=== PATIENT | female | born 1970 | race Caucasian/White ===

== ENCOUNTER → 2016-07-11 | Outpatient (CLI) | payer MEDICARE, OTHER ==
[2016-07-11 12:29] LABS: Basophils % (A) 1 %; CH 22.1; CHCM 29.5; Eosinophils # (A) 0.3 k/uL (0-0.7); Eosinophils % (A) 3 %; HDW 3.03; HGB 10.5 gm/dL (11.4-16.0); Hypochromasia Marked; Luc # (Auto) 0.29; Luc % (Auto) 3; Lymphocytes # (A) 2.6 k/uL (1.0-4.8); Lymphocytes % (A) 31 %; MCH 22.5 pg (25.0-35.0); MCHC 29.9 g/dL (31.0-37.0); MCV 75.3 fL (80.0-100.0); Microcytosis Slight; Monocytes # (A) 0.4 k/uL (0-1.0); Monocytes % (A) 4 %; Neutrophils % (A) 58 %; RBC 4.65 m/uL (3.80-5.40); RDW 15.8 % (11.5-15.5); WBC 8.5 k/uL (3.8-10.6); WBC (Perox) 9.14
[2016-07-11 15:40] LABS: % Iron Saturation 8.5 % (20-50)
== END | disposition home or self-care (01) ==
LOC: LABWHC1 11:52
PROVIDERS: ATTEND Internal Medicine Gastroenterology
DX: D50.9 Iron deficiency anemia, unspecified (principal)
CPT/HCPCS: 36415; 82728; 83540; 83550; 85025

== ENCOUNTER → 2016-08-11 | Outpatient (CLI) | payer MEDICARE, OTHER ==
--- NOTE | 2016-08-11 13:16 | XR ---
EXAMINATION TYPE: XR chest 2V DATE OF EXAM: 08/11/2016 11:43 AM COMPARISON: 08/27/2015 HISTORY: 46-year-old female with cough TECHNIQUE: Frontal and lateral views FINDINGS: The cardiomediastinal silhouette, aorta, and pulmonary vasculature are within normal limits. Mild dif fuse interstitial prominence. Otherwise, lungs and pleural spaces are clear. IMPRESSION: Chronic changes, possible chronic bronchitis/asthma. Otherwise, no acute process.
== END | disposition home or self-care (01) ==
LOC: RADXRWHC 11:31
PROVIDERS: ATTEND Internal Medicine
DX: R91.8 Other nonspecific abnormal finding of lung field (principal); J44.9 Chronic obstructive pulmonary disease, unspecified
CPT/HCPCS: 71020

== ENCOUNTER → 2016-11-14 | Outpatient (CLI) | payer MEDICARE ==
[2016-11-14 10:01] LABS: Appearance,Urine Clear (Clear); Bilirubin,Urine Negative (Negative); Glucose,Urine (UA) Negative (Negative); Ketones,Urine Negative (Negative); Leukocyte Esterase,Urine Negative (Negative); Nitrite,Urine Negative (Negative); PH, Urine 6.5 (5.0-8.0); Protein,Urine Negative (Negative); Specific Gravity,Urine 1.012 (1.001-1.035); UA Billing (MACRO vs. MICRO) CHEM; Urobilinogen,Urine <2.0 mg/dL (<2.0)
[2016-11-14 10:14] LABS: Anisocytosis Slight; Basophils % (A) 1 %; CH 23.3; CHCM 30.5; Eosinophils # (A) 0.3 k/uL (0-0.7); Eosinophils % (A) 4 %; HGB 10.4 gm/dL (11.4-16.0); Hypochromasia Marked; Luc # (Auto) 0.25; Luc % (Auto) 3; Lymphocytes # (A) 2.3 k/uL (1.0-4.8); Lymphocytes % (A) 28 %; MCH 23.5 pg (25.0-35.0); MCHC 30.6 g/dL (31.0-37.0); MCV 76.8 fL (80.0-100.0); Mean Platelet Volume 6.5; Microcytosis Slight; Monocytes # (A) 0.3 k/uL (0-1.0); Monocytes % (A) 4 %; Neutrophils % (A) 61 %; RBC 4.43 m/uL (3.80-5.40); RDW 16.2 % (11.5-15.5); WBC 8.1 k/uL (3.8-10.6); WBC (Perox) 8.55
[2016-11-14 10:17] LABS: INR 0.9 (<1.1); Partial Thromboplastin Time 22.9 sec (22.0-30.0); Prothrombin Time 9.5 sec (9.0-12.0)
[2016-11-14 10:34] LABS: Anion Gap 11 mmol/L; Blood Urea Nitrogen 7 mg/dL (7-17); Calcium 9.8 mg/dL (8.4-10.2); Carbon Dioxide 26 mmol/L (22-30); Chloride 107 mmol/L (98-107); Glucose 92 mg/dL (74-99); Non-African American GFR(MDRD) >60 (>60 ml/min/1.73 sqM); Potassium 4.6 mmol/L (3.5-5.1); Sodium 144 mmol/L (137-145)
--- NOTE | 2016-11-14 16:27 | XR ---
EXAMINATION TYPE: XR chest 2V DATE OF EXAM: 11/14/2016 2:07 PM COMPARISON: 08/11/2016 HISTORY: 46-year-old female preoperative testing TECHNIQUE: Frontal and lateral views FINDINGS: The cardiomediastinal silhouette, aorta, and pulmonary vasculature are within normal limits. Lungs an d pleural spaces are clear. IMPRESSION: No acute cardiopulmonary process.
== END | disposition home or self-care (01) ==
LOC: LABWHC1 09:00
PROVIDERS: ATTEND Internal Medicine
DX: Z01.818 Encounter for other preprocedural examination (principal)
CPT/HCPCS: 36415; 71020; 80048; 81003; 85025; 85610; 85730; 87070

== ENCOUNTER → 2017-01-06 | Outpatient (CLI) | payer MEDICARE ==
[2017-01-06 14:14] LABS: Anisocytosis Slight; Basophils # (A) 0.1 k/uL (0-0.2); Basophils % (A) 0 %; CH 24.5; CHCM 30.9; Eosinophils # (A) 0.4 k/uL (0-0.7); Eosinophils % (A) 3 %; HCT 35.1 % (34.0-46.0); HDW 2.74; HGB 11.1 gm/dL (11.4-16.0); Hypochromasia Moderate; Luc % (Auto) 3; Lymphocytes # (A) 2.7 k/uL (1.0-4.8); Lymphocytes % (A) 25 %; MCHC 31.5 g/dL (31.0-37.0); MCV 79.4 fL (80.0-100.0); Mean Platelet Volume 7.7; Microcytosis Slight; Monocytes # (A) 0.4 k/uL (0-1.0); Monocytes % (A) 3 %; Neutrophils # (A) 7.2 k/uL (1.3-7.7); Neutrophils % (A) 66 %; RBC 4.42 m/uL (3.80-5.40); RDW 16.8 % (11.5-15.5); WBC (Perox) 11.78
[2017-01-06 14:46] LABS: % Iron Saturation 8.1 % (20-50)
== END | disposition home or self-care (01) ==
LOC: LABWHC1 13:32
PROVIDERS: ATTEND Internal Medicine Gastroenterology
DX: D50.9 Iron deficiency anemia, unspecified (principal)
CPT/HCPCS: 36415; 82728; 83540; 83550; 85025

== ENCOUNTER → 2017-05-01 | Outpatient (CLI) | payer MEDICARE ==
--- NOTE | 2017-05-01 16:53 | US ---
EXAMINATION TYPE: US abdomen complete DATE OF EXAM: 05/01/2017 COMPARISON: 08/02/2014 CLINICAL HISTORY: R10.12 Abd Pain R10.32 LLQ R10.13 LUQ Pain. Left sided pain, epigastric pain for 2 weeks. Nausea. Cholecystectomy 2016 EXAM MEASUREMENTS: Liver Length: 16.8 cm Gallbladder Wall: Surgically absent CBD: 0.5 cm Spleen: 8.7 cm Right Kidney: 10.1 x 3.6 x 4.7 cm Left Kidney: 9.5 x 5.2 x 4.6 cm Pancreas: Tail obscured by overlying bowel gas Liver: wnl Gallbladder: Surgically absent Evidence for sonographic Biggs's sign: no CBD: wnl Spleen: appears wnl Right Kidney: no evidence of hydronephrosis or mass Left Kidney: no evidence of hydronephrosis or mass Upper IVC: wnl Abd Aorta: wnl IMPRESSION: 1. Abdomen ultrasound as visualized appears unremarkable.
== END | disposition home or self-care (01) ==
LOC: RADUSWWP 06:59
PROVIDERS: ATTEND Internal Medicine
DX: R10.12 Left upper quadrant pain (principal); R10.32 Left lower quadrant pain; R10.13 Epigastric pain
CPT/HCPCS: 76700

== ENCOUNTER → 2017-07-15 | Outpatient (CLI) | payer MEDICARE ==
[2017-07-15 08:58] LABS: HCT 35.9 % (34.0-46.0); HGB 10.8 gm/dL (11.4-16.0); Hypochromasia Marked; MCH 23.6 pg (25.0-35.0); MCV 78.9 fL (80.0-100.0); Mean Platelet Volume 6.7; Platelet Count 310 k/uL (150-450); RBC 4.55 m/uL (3.80-5.40); RDW 14.7 % (11.5-15.5); WBC 8.6 k/uL (3.8-10.6)
[2017-07-15 09:13] LABS: ALT 25 U/L (9-52); AST 17 U/L (14-36); Alkaline Phosphatase 72 U/L (38-126); Anion Gap 10 mmol/L; Blood Urea Nitrogen 11 mg/dL (7-17); Calcium 9.7 mg/dL (8.4-10.2); Carbon Dioxide 27 mmol/L (22-30); Chloride 107 mmol/L (98-107); Cholesterol 232 mg/dL (<200); Glucose 90 mg/dL (74-99); HDL Cholesterol 49 mg/dL (40-60); LDL Cholesterol,Calculated 157 mg/dL (0-99); Potassium 4.6 mmol/L (3.5-5.1); Sodium 144 mmol/L (137-145); Total Bilirubin 0.4 mg/dL (0.2-1.3); Triglycerides 129 mg/dL (<150)
[2017-07-15 09:17] LABS: T4, Free (Free Thyroxine) 0.94 ng/dL (0.78-2.19)
== END | disposition home or self-care (01) ==
LOC: LABWHC1 07:16
PROVIDERS: ATTEND Internal Medicine
DX: Z00.00 Encounter for general adult medical examination without abnormal findings (principal); K21.0 Gastro-esophageal reflux disease with esophagitis; E78.2 Mixed hyperlipidemia; J44.9 Chronic obstructive pulmonary disease, unspecified
CPT/HCPCS: 36415; 80053; 80061; 84439; 84443; 85027

== ENCOUNTER → 2017-08-25 | Outpatient (CLI) | payer MEDICARE, OTHER ==
--- NOTE | 2017-08-26 05:18 | WWHP ---
[facility] - HISTORY AND PHYSICAL DATE OF SERVICE: 08/25/2017 CHIEF COMPLAINT: The patient is here for her routine gynecologic exam. HPI: This is a 47-year-old, G2, P2 with an LMP of 06/23/2017. She is status post tubal ligation. She states her periods went from being about every 1 to 3 months prior to 07/08 to no periods for one full year. Her last prior menstrual period was in and she had a normal to slightly heavy period, which started on 06/23/2017. This period lasted about 5 to 7 days with heavier flow and cramps. She has been having hot flashes for about 2 years and these are moderate to severe according to the patient. She has also been experiencing abdominal bloating for 2 years. She states the amount of bloating varies but she tends to almost always have bloating. She has also been having deep dyspareunia. She does have history of genital herpes type 2, which was confirmed on 11/07/2015 with culture testing. She states she has been having fairly frequent genital outbreaks up to about every month during the past year. PAST MEDICAL HISTORY: Bipolar disorder, posttraumatic stress disorder, gastroesophageal reflux disease , asthma, and fibromyalgia. MEDICATIONS: 1. Neurontin 600 mg 5 times daily. 2. Catapres 0.1 mg t.i.d. 3. Prilosec 20 mg b.i.d. 4. Zantac 1 b.i.d. 5. Zoloft 50 mg daily. 6. ProAir HFA p.r.n. 7. Qvar inhaler 80 mg b.i.d. 8. Prochlorperazine 5 mg p.r.n. 9. Tramadol 50 mg q.8 hours p.r.n. 10. polyethylene glycol 2 scoops daily. ALLERGIES: Allergies to PENICILLIN, which showed up in allergy testing. PAST SURGICAL HISTORY: Tubal ligation, D and C x2, cholecystectomy 2013, arthroscopic left knee surgery 2003, right breast biopsy 2001 and neck surgery 2016. PAST [employer] HISTORY: She has always had somewhat irregular periods about every 1 to 3 months. She does have a history of gonorrhea and chlamydia in her 20s. She has a history of genital HSV type 2, confirmed with culture. FAMILY HISTORY: Hypertension in both parents. Mother had some type of cancer either uterine or cervical. Sister has vulvar cancer. Grandfather had colon cancer. Grandmother had an VT. REVIEW OF SYSTEMS: She has gained about 3 pounds over the last 3 years. She denies respiratory or cardiac problems. GI: She does have a history of chronic constipation. PHYSICAL EXAM: Blood pressure 107/52, height 5 feet 6 inches, weight 163 pounds, BMI 26, temperature 97.9, pulse 68. This is a well-developed, well-nourished, white female, who is alert and oriented x3, in no acute distress. HEENT is within normal limits. NECK: Supple without mass or thyromegaly. CHEST AND LUNGS: Clear to auscultation. HEART: Regular rate and rhythm. Breasts are without mass or discharge, but there is mild left breast tenderness. She states she does have frequent breast tenderness and pain. Axillary exam is negative for adenopathy. BACK: Negative for CVA tenderness. ABDOMEN: Soft, nontender, without palpable masses and the abdomen is not significantly distended. PELVIC EXAM: Normal external genitalia. Cervix and vagina appear normal. There is no unusual discharge. No blood is noted. There is no significant prolapse. The uterus is mid position, nongravid size and nontender. There are no palpable adnexal masses or tenderness. Rectal exam is negative for mass or tenderness and is negative for occult blood. EXTREMITIES: Nontender. IMPRESSION: 1. A 47-year-old female with normal gynecologic exam. 2. Vaginal bleeding after 1 year of amenorrhea. Probable postmenopausal bleeding. Differential diagnosis will also include perimenopausal bleeding after amenorrhea. 3. Abdominal bloating without any significant physical findings at this time. 4. History of frequent recurrent genital HSV. 5. Deep dyspareunia without any significant physical findings at this time. 6. Chronic mastodynia with mild breast tenderness. PLAN: 1. Pap smear was performed. 2. Self breast examination was discussed. 3. Diagnostic mammogram was recommended and a slip was given to the patient for this. 4. Endometrial biopsy was recommended to further evaluate the possible postmenopausal bleeding. 5. Pelvic ultrasound will be scheduled. 6. Valtrex 500 mg daily for suppressive HSV treatment. 7. The mammogram, endometrial biopsy and pelvic ultrasound will be scheduled on the same day in the near future. 8. She will return in 1 year and p.r.n. MMODL / IJN: [id number] / STEVOD
== END | disposition home or self-care (01) ==
LOC: WWCWWP 15:52
PROVIDERS: ATTEND Obstetrics & Gynecology
DX: Z53.9 Procedure and treatment not carried out, unspecified reason (principal)

== ENCOUNTER → 2017-09-02 | Outpatient (CLI) | payer MEDICARE, OTHER ==
--- NOTE | 2017-09-02 12:07 | US ---
EXAMINATION TYPE: US pelvis complete transvag DATE OF EXAM: 09/02/2017 COMPARISON: NONE CLINICAL HISTORY: 47-year-old female R14.0Abdominal distension/N94.1. TECHNIQUE: Transabdominal sonographic images of the pelvis were acquired. Transvaginal sonographic images were medically necessary to better assess the following anatomy: endometrium and ovaries. Date of LMP: 06/23/2017 Findings: Uterus: Anteverted measuring 6.0 x 2.9 x 4.0 cm. There is diffuse myometrial heterogeneity. Rounded structure present along the anterior body measures 1.3 x 1.4 x 1.3 cm and abuts the endometrium. Endometrial Stripe: 0.6 cm, within normal limits. Right Ovary: 2.0 x 1.1x 1.0 cm Left Ovary: 1.5 x 1.1 x 1.3 cm Ovaries are small. No evident adnexal abnormality or cul-de-sac free fluid. IMPRESSION: 1. Myometrial heterogeneity can be seen with diffuse small fibroid change or adenomyosis. 2. A focal fibroid is present anteriorly at the uterine body. This is primarily intramural but may mills ve a submucosal component.
--- NOTE | 2017-09-02 12:09 | MM ---
Reason for exam: clinical finding. Last mammogram was performed 2 years and 6 months ago. History: Benign stereotactic core biopsy of the right breast, January 11, 2002. Physical Findings: Nurse did not find any significant physical abnormalities on exam. MG 3D Diag Mammo W/Cad JIMMIE Bilateral CC and MLO view(s) were taken. Prior study comparison: March 06, 2015, bilateral MG diagnostic mammo w CAD JIMMIE. September 30, 2013, CAD bilateral diagnostic mammogram. The breast tissue is heterogeneously dense. This may lower the sensitivity of mammography. There is chronic nodularity in the left medial breast. Diffuse punctate calcifications bilateral breast, increased posterior upper outer quadrant left. These appear punctate and amorphous, similar to the calcifications elsewhere in both breasts. Benign etiology suspected. These results were verbally communicated with the patient and result sheet given to the patient on 09/02/17. ASSESSMENT: Probably benign, BI-RAD 3 RECOMMENDATION: Follow-up diagnostic mammogram of the left breast in 6 months.
--- NOTE | 2017-09-02 13:37 | P.PCN ---
Date of Procedure: 09/02/17 Preoperative Diagnosis: Postmenopausal bleeding Postoperative Diagnosis: Postmenopausal bleeding. Failed endometrial biopsy secondary to cervical stenosis. Procedure(s) Performed: Endometrial Biopsy (failed) Anesthesia: none Surgeon: Vega Mcintyre Estimated Blood Loss (ml): 0 Pathology: none sent Condition: stable Disposition: same day Indications for Procedure: This was a 47-year-old female who had a menstrual like bleed on 06/23/17. This was after one month of amenorrhea. Because of this she was scheduled for an endometrial biopsy. Operative Findings: The cervix and vagina appear normal. The uterus is mid-positioned and non- gravid size. There are no palpable adnexal masses or tenderness. The cervix is stenotic and the biopsy instrument was not able to be passed through the cervix. Description of Procedure: The endometrial biopsy procedure was described to the patient. All of her questions were answered. The patient was placed in the lithotomy position. Bimanual examination was performed. The uterus is mid-positioned and is non- gravid size. The speculum was inserted and the cervix and vagina were prepped with betadine solution. The anterior lip of the cervix was grasped within Allys Clamp. The 3mm endometrial biopsy curette was used to attempt the endometrial biopsy. I was unable to insert this past the cervical os because of stenosis of the cervix. Several attempts were made without success. Due to the discomfort with the attempts the procedure was aborted. The patient states that she had a previous cryotherapy of the cervix which may be related to the stenosis noted today. The patient tolerated the procedure. There were no complications. The post procedure vitals are as follows: blood pressure 138/ 78. pulse 77. Post procedure instructions were given to the patient. The patient's endometrial thickness by pelvic ultrasound done today was 6 mm. Because the endometrial biopsy could not be completed today, and the endometrial thickness is somewhat reassuring, we will manage her conservatively. She was instructed to call if she has recurrent vaginal bleeding.
== END | disposition home or self-care (01) ==
LOC: RADMAMWWP 10:21
PROVIDERS: ATTEND Obstetrics & Gynecology
DX: D25.9 Leiomyoma of uterus, unspecified (principal); N85.8 Other specified noninflammatory disorders of uterus; N64.4 Mastodynia
CPT/HCPCS: 77066; 76856; 76830; G0279

== ENCOUNTER → 2017-09-02 | Day surgery (SDC) | payer MEDICARE, OTHER ==
[2017-09-02 12:25] VITALS: BP 120/58; PULSE 64; TEMP 96.1; BMI 25.8
--- NOTE | 2017-09-08 17:36 | P.PN ---
Progress Note - Text Progress Note Date: 09/08/17 The patient's mammogram from 09/02/2017 was reviewed. This is a diagnostic bilateral mammogram which was felt to be benign. Follow-up diagnostic mammogram of the left breast in 6 months was recommended and in order slip was mailed to the patient for this.
== END ==
LOC: WWCWWP 10:17
PROVIDERS: ATTEND Obstetrics & Gynecology
DX: R92.8 Other abnormal and inconclusive findings on diagnostic imaging of breast (principal); Z53.8 Procedure and treatment not carried out for other reasons

== ENCOUNTER 2017-09-07 17:34 | Emergency (ER) | payer MEDICARE, OTHER ==
[2017-09-07 18:25] LABS: Basophils # (A) 0.1 k/uL (0-0.2); Basophils % (A) 1 %; Eosinophils # (A) 0.5 k/uL (0-0.7); Eosinophils % (A) 5 %; HCT 34.2 % (34.0-46.0); HGB 11.1 gm/dL (11.4-16.0); Lymphocytes # (A) 3.3 k/uL (1.0-4.8); Lymphocytes % (A) 38 %; MCH 24.4 pg (25.0-35.0); MCHC 32.5 g/dL (31.0-37.0); MCV 75.1 fL (80.0-100.0); Mean Platelet Volume 7.2; Microcytosis Slight; Monocytes # (A) 0.5 k/uL (0-1.0); Monocytes % (A) 5 %; Neutrophils # (A) 4.3 k/uL (1.3-7.7); Neutrophils % (A) 49 %; Platelet Count 321 k/uL (150-450); RBC 4.56 m/uL (3.80-5.40); RDW 15.5 % (11.5-15.5); WBC 8.9 k/uL (3.8-10.6)
[2017-09-07 18:37] LABS: Anion Gap 11 mmol/L; Blood Urea Nitrogen 14 mg/dL (7-17); Calcium 9.9 mg/dL (8.4-10.2); Carbon Dioxide 25 mmol/L (22-30); Chloride 104 mmol/L (98-107); Glucose 86 mg/dL (74-99); Potassium 3.7 mmol/L (3.5-5.1); Sodium 140 mmol/L (137-145)
--- NOTE | 2017-09-07 19:24 | XR ---
EXAMINATION: XR chest 2V DATE AND TIME: 09/07/2017 7:02 PM ORDERING PROVIDER: Tyler Jeffers CLINICAL INDICATION: Pain dyspnea TECHNIQUE: PA and lateral COMPARISON: 04/15/2017 DESCRIPTION: The lungs are clear. The pleural spaces are negative. The cardiac silhouette is not enlarged. The mediastinal and pleural silhouettes are unremarkable. The skeletal structures are intact without focal findings. The soft tissues are unremarkable. IMPRESSION: NO ACUTE PROCESS.
--- NOTE | 2017-09-07 19:30 | ED ---
General Adult HPI - General Chief complaint: Upper Respiratory Infection Stated complaint: Cold sweats, lung issues Time Seen by Provider: 09/07/17 18:23 Source: patient, RN notes reviewed Mode of arrival: ambulatory Limitations: no limitations - History of Present Illness Initial comments: 47-year-old female presents to the emergency department for chief complaint of cough. Patient states she has had a cough for about a week. Patient states she has a history of asthma and is a smoker. Patient states she has tightness when she takes deep breath and that her cough is productive. Patient has been using her nebulizer and inhaler at home which provided some relief. Patient states she was hospitalized for a pneumonia in the past. Patient denies chest pain or abdominal pain. Patient denies any nausea vomiting or diarrhea. Patient also denies any urinary symptoms including burning or pain with urination. Patient feels some congestion. She denies a sore throat. She states that when she swallows she feels a pressure in her ears. Patient states she is not on a nasal spray. Patient states she tolerates steroids and a Medrol Dosepak but does not tolerate prednisone 50 because she has GERD and it exacerbates her symptoms. She is on an antacid and PPI. Patient has a terminally ill sister and would like antibiotics if possible - Related Data Home Medications Medication Instructions Recorded Confirmed Gabapentin [Neurontin] 600 mg PO 5XD 12/14/13 09/07/17 Omeprazole [PriLOSEC] 20 mg PO BID 12/14/13 09/07/17 cloNIDine HCL [Catapres] 0.3 mg PO HS 12/14/13 09/07/17 Albuterol Sulfate [Proair Hfa] 1 - 2 puff INHALATION RT-Q6H PRN 08/27/15 Beclomethasone Dipropionate [Qvar 2 puff INHALATION RT-BID 08/27/15 09/07/17 80 mcg/puff] traMADol HCl [Ultram] 50 mg PO Q8HR PRN 08/27/15 09/07/17 Albuterol Nebulized [Ventolin 2.5 mg INHALATION RT-QID PRN 09/07/17 09/07/17 Nebulized] Ibuprofen [Advil] 200 mg PO Q6H PRN 09/07/17 09/07/17 Melatonin 6 mg PO HS 09/07/17 09/07/17 Polyethylene Glycol 3350 [Miralax] 51 gm PO DAILY@1500 09/07/17 09/07/17 Ranitidine HCl [Zantac] 150 mg PO BID 09/07/17 09/07/17 Sertraline HCl [Zoloft] 50 mg PO DAILY 09/07/17 09/07/17 Previous Rx's Medication Instructions Recorded Azithromycin [Zithromax Z-pack] 250 mg PO DIRECTED #6 tab 09/07/17 methylPREDNISolone Dose Pack 4 mg PO DIRECTED #21 package 09/07/17 [Medrol Dose Pack] Allergies Allergy/AdvReac Type Severity Reaction Status Date / Time mold Allergy Wheezing Verified 09/07/17 18:54 acetaminophen AdvReac Nausea & Verified 09/07/17 18:54 [From Tylenol-Codeine #3] Vomiting aspirin AdvReac Nausea & Verified 09/07/17 18:54 Vomiting codeine phosphate AdvReac Nausea & Verified 09/07/17 18:54 [From Tylenol-Codeine #3] Vomiting Milk Containing Products AdvReac Nausea & Verified 09/07/17 18:54 Vomiting Penicillins AdvReac Rash/Hives Verified 09/07/17 18:54 Review of Systems ROS Statement: Those systems with pertinent positive or pertinent negative responses have been documented in the HPI. ROS Other: All systems not noted in ROS Statement are negative. Past Medical History Past Medical History: Asthma History of Any Multi-Drug Resistant Organisms: None Reported Past Surgical History: Cholecystectomy, Orthopedic Surgery, Tubal Ligation Additional Past Surgical History / Comment(s): neck surgery Past Psychological History: Anxiety, Bipolar, Depression, PTSD Smoking Status: Current every day smoker Past Alcohol Use History: None Reported Past Drug Use History: Marijuana General Exam Limitations: no limitations Head exam: Present: atraumatic, normocephalic, normal inspection Eye exam: Present: normal appearance, PERRL, EOMI. Absent: scleral icterus, conjunctival injection, periorbital swelling ENT exam: Present: normal exam, mucous membranes moist, TM's normal bilaterally , normal external ear exam, other (No erythema noted in the pharynx.) Neck exam: Present: normal inspection. Absent: tenderness, meningismus, lymphadenopathy Respiratory exam: Present: wheezes (Wheezes present and lower left lung.). Absent: respiratory distress, rales, rhonchi, stridor Cardiovascular Exam: Present: regular rate, normal rhythm, normal heart sounds. Absent: systolic murmur, diastolic murmur, rubs, gallop, clicks GI/Abdominal exam: Present: soft, normal bowel sounds. Absent: distended, tenderness, guarding, rebound, rigid Course Vital Signs 09/07/17 09/07/17 17:45 18:24 Temperature 97.9 F Pulse Rate 82 Respiratory 18 22 Rate Blood Pressure 140/82 O2 Sat by Pulse 99 Oximetry EKG Findings - EKG Comments: EKG Findings:: Normal sinus rhythm, ventricular rate 78, MI interval 114, QRS duration 92 Medical Decision Making - Medical Decision Making 47-year-old female presents the emergency department for a chief complaint of cough 1 week. Patient states she has not had fevers at home. She is an asthmatic and smokes. She was hospitalized for a pneumonia in the past so wanted to follow-up. Patient has a nebulizer and inhaler at home. Patient states she tolerates Medrol Dosepaks. Vitals were within normal limits: Patient 's temperature is 97.9 and pulse rate 82. 99% O2 sat on room air. CBC is unremarkable and white blood cell count was within normal limits. Chest X-ray demonstrates lungs are clear and there is no acute process. Patient will be given a Medrol Dosepak. She will also be given a course of azithromycin. She will continue to use her nebulizer and inhaler at home. She has medications at home for the nebulizer. Return to The emergency Department if she notices worsening of her symptoms or experiences shortness of breath. She will follow up with primary care in 1-2 days. - Lab Data Result diagrams: 09/07/17 18:10 09/07/17 18:10 Lab Results 09/07/17 09/07/17 Range/Units 18:10 18:10 WBC 8.9 (3.8-10.6) k/uL RBC 4.56 (3.80-5.40) m/uL Hgb 11.1 L (11.4-16.0) gm/dL Hct 34.2 (34.0-46.0) % MCV 75.1 L (80.0-100.0) fL MCH 24.4 L (25.0-35.0) pg MCHC 32.5 (31.0-37.0) g/dL RDW 15.5 (11.5-15.5) % Plt Count 321 (150-450) k/uL Neutrophils % 49 % Lymphocytes % 38 % Monocytes % 5 % Eosinophils % 5 % Basophils % 1 % Neutrophils # 4.3 (1.3-7.7) k/uL Lymphocytes # 3.3 (1.0-4.8) k/uL Monocytes # 0.5 (0-1.0) k/uL Eosinophils # 0.5 (0-0.7) k/uL Basophils # 0.1 (0-0.2) k/uL Microcytosis Slight Sodium 140 (137-145) mmol/L Potassium 3.7 (3.5-5.1) mmol/L Chloride 104 (98-107) mmol/L Carbon Dioxide 25 (22-30) mmol/L Anion Gap 11 mmol/L BUN 14 (7-17) mg/dL Creatinine 0.74 (0.52-1.04) mg/dL Est GFR (CKD-EPI)AfAm >90 (>60 ml/min/1.73 sqM) Est GFR (CKD-EPI)NonAf >90 (>60 ml/min/1.73 sqM) Glucose 86 (74-99) mg/dL Calcium 9.9 (8.4-10.2) mg/dL Disposition Clinical Impression: Upper respiratory infection Disposition: HOME SELF-CARE Condition: Good Instructions: Upper Respiratory Infection (ED) Additional Instructions: Please take azithromycin and Medrol Dosepak as directed. Please follow-up with primary care provider in one to 2 days. Please return to the emergency department if you notice worsening symptoms, develops a high fever, or becomes short of breath. Prescriptions: Azithromycin [Zithromax Z-pack] 250 mg PO DIRECTED #6 tab methylPREDNISolone Dose Pack [Medrol Dose Pack] 4 mg PO DIRECTED #21 package Referrals: Albino Tyler MD [Primary Care Provider] - 1-2 days
[2017-09-07 20:14] VITALS: BP 141/60; PULSE 71; RESP 18; TEMP 97.1
== END 2017-09-07 20:20 | disposition home or self-care (01) ==
LOC: EC 17:34
DX: J06.9 Acute upper respiratory infection, unspecified (principal); J45.909 Unspecified asthma, uncomplicated; F41.9 Anxiety disorder, unspecified; F32.9 Major depressive disorder, single episode, unspecified; F43.10 Post-traumatic stress disorder, unspecified; F17.200 Nicotine dependence, unspecified, uncomplicated; Z79.52 Long term (current) use of systemic steroids; Z79.899 Other long term (current) drug therapy; Z91.048 Other nonmedicinal substance allergy status; Z88.6 Allergy status to analgesic agent; Z88.5 Allergy status to narcotic agent; Z91.011 Allergy to milk products; Z88.0 Allergy status to penicillin
CPT/HCPCS: 36415; 71046; 80048; 85025; 93005; 99284

== ENCOUNTER → 2017-10-19 | Outpatient (CLI) | payer MEDICARE, OTHER ==
[2017-10-19 13:28] LABS: Basophils # (A) 0.1 k/uL (0-0.2); Basophils % (A) 1 %; Eosinophils # (A) 0.3 k/uL (0-0.7); Eosinophils % (A) 4 %; HCT 37.9 % (34.0-46.0); HGB 11.8 gm/dL (11.4-16.0); Hypochromasia Slight; Lymphocytes # (A) 3.1 k/uL (1.0-4.8); Lymphocytes % (A) 39 %; MCH 24.4 pg (25.0-35.0); MCHC 31.2 g/dL (31.0-37.0); MCV 78.1 fL (80.0-100.0); Mean Platelet Volume 6.5; Monocytes # (A) 0.3 k/uL (0-1.0); Monocytes % (A) 4 %; Neutrophils # (A) 3.9 k/uL (1.3-7.7); Neutrophils % (A) 49 %; Platelet Count 289 k/uL (150-450); RBC 4.85 m/uL (3.80-5.40); RDW 14.9 % (11.5-15.5); WBC 7.9 k/uL (3.8-10.6)
[2017-10-19 19:07] LABS: Iron Saturation 5.49 (12.00-45.00)
== END | disposition home or self-care (01) ==
LOC: LABWHC1 12:18
PROVIDERS: ATTEND Internal Medicine Gastroenterology
DX: D50.9 Iron deficiency anemia, unspecified (principal)
CPT/HCPCS: 36415; 82728; 83540; 83550; 85025

== ENCOUNTER 2017-12-01 02:33 | Emergency (ER) | payer MEDICARE ==
[2017-12-01] MEDS ORDERED: methylPREDNISolone SOD SUCCI 125 MG/2 ML VIAL IV STA (03:22)
--- NOTE | 2017-12-01 03:32 | ED ---
Allergic Reaction HPI - General Chief complaint: Allergic Reaction Stated complaint: poss allergic rxn Time Seen by Provider: 12/01/17 03:09 Source: patient, EMS, RN notes reviewed Mode of arrival: EMS Limitations: no limitations - History of Present Illness Initial Comments: This is a 39-year-old female who presents to the emergency department with chief complaint possible ALLERGIC reaction. Patient states that she has been taking Voltaren intermittently for fibromyalgia. She states that this evening she took it at approximately 11 PM. She states that she woke up and felt flush and then felt tingling and swelling in her bilateral hands and feet. She states that she became nauseous and vomited. Patient states the last time she took Voltaren was last Thursday. She states that a similar reaction occurred when her hands and feet became tingling and swollen. She states that at that time she took Benadryl and the symptoms went away. Patient was transported to the emergency department via EMS and was given Zofran and Benadryl. Denies any recent illnesses or infections. Denies fevers or chills, chest pain or shortness of breath, abdominal pain area - Related Data Home Medications Medication Instructions Recorded Confirmed Gabapentin [Neurontin] 600 mg PO 5XD 12/14/13 12/01/17 Omeprazole [PriLOSEC] 20 mg PO BID 12/14/13 12/01/17 cloNIDine HCL [Catapres] 0.3 mg PO HS 12/14/13 12/01/17 Albuterol Sulfate [Proair Hfa] 1 - 2 puff INHALATION RT-Q6H PRN 08/27/15 Beclomethasone Dipropionate [Qvar 2 puff INHALATION RT-BID 08/27/15 12/01/17 80 mcg/puff] traMADol HCl [Ultram] 50 mg PO Q8HR PRN 08/27/15 12/01/17 Albuterol Nebulized [Ventolin 2.5 mg INHALATION RT-QID PRN 09/07/17 12/01/17 Nebulized] Ibuprofen [Advil] 200 mg PO Q6H PRN 09/07/17 12/01/17 Melatonin 6 mg PO HS 09/07/17 12/01/17 Polyethylene Glycol 3350 [Miralax] 51 gm PO DAILY@1500 09/07/17 12/01/17 Ranitidine HCl [Zantac] 150 mg PO BID 09/07/17 12/01/17 Sertraline HCl [Zoloft] 50 mg PO DAILY 09/07/17 12/01/17 Previous Rx's Medication Instructions Recorded Azithromycin [Zithromax Z-pack] 250 mg PO DIRECTED #6 tab 09/07/17 methylPREDNISolone Dose Pack 4 mg PO DIRECTED #21 package 09/07/17 [Medrol Dose Pack] Allergies Allergy/AdvReac Type Severity Reaction Status Date / Time mold Allergy Wheezing Verified 12/01/17 02:42 acetaminophen AdvReac Nausea & Verified 12/01/17 02:42 [From Tylenol-Codeine #3] Vomiting aspirin AdvReac Nausea & Verified 12/01/17 02:42 Vomiting codeine phosphate AdvReac Nausea & Verified 12/01/17 02:42 [From Tylenol-Codeine #3] Vomiting Milk Containing Products AdvReac Nausea & Verified 12/01/17 02:42 Vomiting Penicillins AdvReac Rash/Hives Verified 12/01/17 02:42 Review of Systems ROS Statement: Those systems with pertinent positive or pertinent negative responses have been documented in the HPI. ROS Other: All systems not noted in ROS Statement are negative. Past Medical History Past Medical History: Asthma History of Any Multi-Drug Resistant Organisms: None Reported Past Surgical History: Cholecystectomy, Orthopedic Surgery, Tubal Ligation Additional Past Surgical History / Comment(s): neck surgery Past Psychological History: Anxiety, Bipolar, Depression, PTSD Smoking Status: Current every day smoker Past Alcohol Use History: None Reported Past Drug Use History: Marijuana General Exam - General Exam Comments Initial Comments: General: Awake and alert, well-developed; in no apparent distress. Appears flushed. HEENT: Head atraumatic, normocephalic. Pupils are equal, round and reactive to light. Extraocular movements intact. Oropharynx moist without erythema or exudate. Neck: Supple. Normal ROM. Cardiovascular: Regular rate and rhythm. No murmurs, rubs or gallops. Chest symmetrical. Respiratory: Lungs clear to auscultation bilaterally. No wheezes, rales or rhonchi. Normal respiratory effort with no use of accessory muscles. Abdomen: Soft, non-tender, non-distended. No rigidity, rebound or guarding. Normal bowel sounds in all 4 quadrants. Musculoskeletal: Normal ROM, no tenderness bilateral upper and lower extremities. Skin: Cheeks appear flushed. Mild swelling to bilateral fingers. Neurological: Alert and oriented x3. CN II-XII grossly intact. Speech is fluent and answers are appropriate. No focal neuro deficits. Psychiatric: Normal mood and affect. No overt signs of depression or anxiety noted. Limitations: no limitations Course Vital Signs 12/01/17 02:37 Temperature 97 F L Pulse Rate 61 Respiratory 20 Rate Blood Pressure 132/71 O2 Sat by Pulse 97 Oximetry Medical Decision Making - Medical Decision Making This is a 47-year-old female who presents to the emergency department with typical and a possible ALLERGIC reaction. Patient reports last weekend and this evening she took Voltaren. She reports feeling numbness and tingling in her bilateral hands with swelling. She reports nausea and vomiting. On physical examination, patient does not appear to be in any acute distress. Vital signs are stable. Patient was given Benadryl and Zofran in the ambulance and states that she is feeling improved. Given steroids here in the emergency department. Vital signs are stable patient is in no acute distress. She'll be discharged home at this time. Disposition Clinical Impression: Allergic reaction Disposition: HOME SELF-CARE Condition: Good Instructions: General Allergic Reaction (ED) Additional Instructions: Please follow up with primary care provider within 1-2 days. Please discontinue the use of Voltaren until follow up with primary care physician. Return to emergency department if symptoms should worsen or any concerns arise. Is patient prescribed a controlled substance at d/c from ED?: No Referrals: Albino Tyler MD [Primary Care Provider] - 1-2 days Time of Disposition: 03:57
[2017-12-01 04:20] VITALS: BP 143/73; PULSE 90; RESP 20; TEMP 98.3
== END 2017-12-01 04:20 | disposition home or self-care (01) ==
LOC: EC 02:33
DX: M79.89 Other specified soft tissue disorders (principal); R20.2 Paresthesia of skin; R20.0 Anesthesia of skin; R11.2 Nausea with vomiting, unspecified; T39.395A Adverse effect of other nonsteroidal anti-inflammatory drugs [NSAID], initial encounter; J45.909 Unspecified asthma, uncomplicated; F41.9 Anxiety disorder, unspecified; F32.9 Major depressive disorder, single episode, unspecified; F43.10 Post-traumatic stress disorder, unspecified; F17.200 Nicotine dependence, unspecified, uncomplicated; Z79.51 Long term (current) use of inhaled steroids; Z79.899 Other long term (current) drug therapy; Z91.018 Allergy to other foods; Z88.6 Allergy status to analgesic agent; Z88.5 Allergy status to narcotic agent; Z91.011 Allergy to milk products; Z88.0 Allergy status to penicillin
CPT/HCPCS: 99284; 96374; J2930

== ENCOUNTER 2018-01-06 09:29 | Day surgery (SDC) | payer MEDICARE ==
[2018-01-04 11:48] VITALS: BMI 27.4
[~2018-01-06 09:29] MED LIST: LACTATED RINGERS 1,000 ML IV SCH
[2018-01-06 10:05] VITALS: TEMP 98.5
[2018-01-06] MEDS ORDERED: LIDOCAINE 1% 20 ML VIAL (10MG/ML) FOR IV START INTRADERMA ONE (10:14)
[2018-01-06] MEDS ORDERED: LIDOCAINE 1% INJ 10MG/ML (20 ML MDV) ONE (10:57)
[2018-01-06] MEDS ORDERED: PROPOFOL 10 MG/ML 20 ML VIAL IV ONE (10:57)
[2018-01-06 11:12] VITALS: RESP 18
--- NOTE | 2018-01-06 11:12 | P.PCN ---
Date of Procedure: 01/06/18 Procedure(s) Performed: BRIEF HISTORY: Patient is a 47-year-old, pleasant, female, scheduled for an upper endoscopy as a part of evaluation of severe epigastric pain for the last 2 years. Has been on Prilosec 20 mg twice daily as well as Zantac with no help. She is hence scheduled for an upper endoscopy to evaluate for. PROCEDURE PERFORMED: Esophagogastroduodenoscopy with biopsy. PREOPERATIVE DIAGNOSIS: chronic epigastric pain and history of GERD. IV sedation per anesthesia. PROCEDURE: After informed consent was obtained, the patient was brought into the endoscopy unit. IV sedation was administered by Anesthesia under continuous monitoring. Initially the Olympus GIF-140 video endoscope was inserted into the mouth. Esophagus intubated without any difficulty. It was gradually advanced into the stomach and duodenum and carefully examined. The bulb and the second part of the duodenum appeared normal. The scope at this time was withdrawn to the stomach, adequately insufflated with air, and upon careful examination, mucosa of the antrum, had mild gastritis and biopsies were done from this area. body, cardia and the fundus appeared normal. The scope was then withdrawn into the esophagus. The GE junction was located at 39 cm from the incisors. The esophagus appeared normal. There were no erosions or ulcerations seen and biopsies were done from the distal esophagus and the patient tolerated the procedure well. IMPRESSION: 1. Mild antral gastritis. 2. No evidence of esophagitis or peptic ulcer. RECOMMENDATIONS: The findings of this examination were discussed with the patient as well as his family. She was advised to continue with Prilosec 20 mg twice daily and follow anti-reflex measures. She'll be seen in office in 2 weeks..
[2018-01-06 11:52] VITALS: BP 105/69; PULSE 55
== END 2018-01-06 11:56 | disposition home or self-care (01) ==
LOC: ORWHC2ENDO 09:29
PROVIDERS: ATTEND Internal Medicine Gastroenterology
DX: K29.50 Unspecified chronic gastritis without bleeding (principal); J45.909 Unspecified asthma, uncomplicated; Z79.899 Other long term (current) drug therapy; Z88.6 Allergy status to analgesic agent; Z88.5 Allergy status to narcotic agent; Z88.2 Allergy status to sulfonamides; Z88.8 Allergy status to other drugs, medicaments and biological substances
CPT/HCPCS: 81025; 88305; 43239; J2001; J2704

== ENCOUNTER 2018-01-12 01:39 | Emergency (ER) | payer MEDICARE ==
[2018-01-12] MEDS ORDERED: SODIUM CHLORIDE 0.9% 1,000 ML IV ONE (01:51)
[2018-01-12] MEDS ORDERED: diphenhydrAMINE 50 MG/ML 1 ML VIAL IVP STA (01:51)
[2018-01-12] MEDS ORDERED: methylPREDNISolone SOD SUCCI 125 MG/2 ML VIAL IV STA (02:01)
--- NOTE | 2018-01-12 02:01 | ED ---
General Adult HPI - General Chief complaint: Allergic Reaction Stated complaint: poss med reaction Time Seen by Provider: 01/12/18 01:51 Source: patient Mode of arrival: ambulatory Limitations: no limitations - History of Present Illness Initial comments: Becky is a 47-year-old female who presents the ED for evaluation of a possible ALLERGIC reaction. Patient reports she is on her third or fourth day of taking doxycycline for a oral abscess, she states that this evening she took her regular home meds as well as the doxycycline and immediately felt a warm flushing sensation throughout her whole body. She then felt that her hands were swelling in her arms and legs were itching. At this time she decided to give herself an EpiPen. She reports that the EpiPen made her feel like her heart was racing but that the itching sensation subsided in route to the hospital. Patient reports that she has had ALLERGIC reactions in the past in which her lips and tongue swell, she is not experiencing any of that today. She states this is the first time she has had to self administer an EpiPen. He was administered into her right thigh without difficulty. She has no signs of injury at the right thigh. - Related Data Home Medications Medication Instructions Recorded Confirmed Gabapentin [Neurontin] 600 mg PO 5XD 12/14/13 01/12/18 Omeprazole [PriLOSEC] 20 mg PO BID 12/14/13 01/12/18 cloNIDine HCL [Catapres] 0.3 mg PO HS 12/14/13 01/12/18 Albuterol Sulfate [Proair Hfa] 1 - 2 puff INHALATION RT-Q6H PRN 08/27/15 Beclomethasone Dipropionate [Qvar 2 puff INHALATION RT-BID 08/27/15 01/12/18 80 mcg/puff] traMADol HCl [Ultram] 50 mg PO Q8HR PRN 08/27/15 01/12/18 Albuterol Nebulized [Ventolin 2.5 mg INHALATION RT-QID PRN 09/07/17 01/12/18 Nebulized] Melatonin 6 mg PO HS 09/07/17 01/12/18 Polyethylene Glycol 3350 [Miralax] 51 gm PO DAILY@1500 09/07/17 01/12/18 Ranitidine HCl [Zantac] 150 mg PO BID 09/07/17 01/12/18 Sertraline HCl [Zoloft] 50 mg PO DAILY 09/07/17 01/12/18 Allergies Allergy/AdvReac Type Severity Reaction Status Date / Time diclofenac [From Voltaren] Allergy Anaphylaxis Verified 01/06/18 10:04 mold Allergy Wheezing Verified 01/06/18 10:04 NSAIDS (Non-Steroidal Allergy Rash/Hives Verified 01/06/18 10:04 Anti-Inflamma sulfamethoxazole Allergy Itching Verified 01/06/18 10:05 [From Bactrim] trimethoprim [From Bactrim] Allergy Itching Verified 01/06/18 10:05 acetaminophen AdvReac Nausea & Verified 01/06/18 10:04 [From Tylenol-Codeine #3] Vomiting aspirin AdvReac Nausea & Verified 01/06/18 10:04 Vomiting codeine phosphate AdvReac Nausea & Verified 01/06/18 10:04 [From Tylenol-Codeine #3] Vomiting Milk Containing Products AdvReac Nausea & Verified 01/06/18 10:04 Vomiting Penicillins AdvReac Rash/Hives Verified 01/06/18 10:04 Review of Systems ROS Statement: Those systems with pertinent positive or pertinent negative responses have been documented in the HPI. ROS Other: All systems not noted in ROS Statement are negative. Respiratory: Denies: dyspnea, wheezes Cardiovascular: Reports: palpitations Endocrine: Denies: fatigue Gastrointestinal: Denies: abdominal pain, nausea, vomiting Skin: Reports: pruritus. Denies: rash Psychiatric: Reports: anxiety Past Medical History Past Medical History: Asthma, Fibromyalgia, GERD/Reflux History of Any Multi-Drug Resistant Organisms: None Reported Past Surgical History: Cholecystectomy, Orthopedic Surgery, Tubal Ligation, Ventriculoperitoneal Shunt Additional Past Surgical History / Comment(s): Neck surgery,dental implants, EGD. Past Anesthesia/Blood Transfusion Reactions: No Reported Reaction Past Psychological History: Anxiety, Bipolar, Depression, PTSD Smoking Status: Current every day smoker Past Alcohol Use History: None Reported Past Drug Use History: Marijuana - Past Family History Mother Family Medical History: No Reported History Sister(s) Family Medical History: Cancer General Exam Limitations: no limitations General appearance: alert, anxious Head exam: Present: atraumatic, normocephalic Eye exam: Present: normal appearance, PERRL ENT exam: Present: normal exam, normal oropharynx, other (No posterior oropharyngeal swelling) Neck exam: Present: normal inspection Respiratory exam: Present: normal lung sounds bilaterally. Absent: respiratory distress, wheezes Cardiovascular Exam: Present: regular rate, normal rhythm GI/Abdominal exam: Present: soft. Absent: distended Rectal exam: Present: deferred Extremities exam: Present: normal inspection Back exam: Present: normal inspection Neurological exam: Present: alert, oriented X3 Psychiatric exam: Present: anxious Skin exam: Present: warm, dry Course Vital Signs 01/12/18 01:42 Temperature 97.1 F L Pulse Rate 84 Respiratory 24 Rate Blood Pressure 133/63 O2 Sat by Pulse 100 Oximetry - Reevaluation(s) Reevaluation #1: Patient was reevaluated, reports resolution of all her symptoms. Is feeling comfortable and would like to be discharged home. 01/12/18 02:45 Medical Decision Making - Medical Decision Making She was seen and evaluated, patient reports that after taking doxycycline she felt flushed. This is her third or fourth day taking this medication. She had no previous history of ALLERGY to this medication. Did self administer an EpiPen and then reports she was experiencing palpitations which have now subsided On initial evaluation the patient appears anxious but is in no acute distress. Her oxygen saturation is 99% on room air. She is not tachycardic. There is no rash or wheezing. She is not experience any nausea or vomiting. I offer the patient treatment with Benadryl and Solu-Medrol. She states that she doesn't like the way it is real makes her feel. Benadryl order was discontinued patient was ordered Solu-Medrol and normal saline. Will reevaluate. Disposition Clinical Impression: Allergic reaction Disposition: HOME SELF-CARE Instructions: Anaphylaxis (ED) Is patient prescribed a controlled substance at d/c from ED?: No Referrals: Albino Tyler MD [Primary Care Provider] - 1-2 days Time of Disposition: 03:09
[2018-01-12 03:26] VITALS: BP 114/53; PULSE 70; RESP 24; TEMP 98.1
== END 2018-01-12 03:28 | disposition home or self-care (01) ==
LOC: EC 01:39
DX: F41.9 Anxiety disorder, unspecified (principal); T36.4X5A Adverse effect of tetracyclines, initial encounter; J45.909 Unspecified asthma, uncomplicated; K21.9 Gastro-esophageal reflux disease without esophagitis; M79.7 Fibromyalgia; F31.9 Bipolar disorder, unspecified; F43.10 Post-traumatic stress disorder, unspecified; F17.200 Nicotine dependence, unspecified, uncomplicated; Z79.51 Long term (current) use of inhaled steroids; Z79.899 Other long term (current) drug therapy; Z88.0 Allergy status to penicillin; Z88.1 Allergy status to other antibiotic agents; Z88.5 Allergy status to narcotic agent; Z88.6 Allergy status to analgesic agent; Z91.011 Allergy to milk products; Z91.048 Other nonmedicinal substance allergy status; Z53.20 Procedure and treatment not carried out because of patient's decision for unspecified reasons
CPT/HCPCS: 99284; 96374; 96361; J2930

== ENCOUNTER 2018-01-12 23:55 | Emergency (ER) | payer MEDICARE ==
[2018-01-13 00:04] VITALS: BP 143/65; PULSE 90; RESP 20; TEMP 97.5
--- NOTE | 2018-01-13 00:22 | ED ---
General Adult HPI - General Chief complaint: Allergic Reaction Stated complaint: ALLERGIC RX Source: patient Mode of arrival: wheelchair Limitations: no limitations - History of Present Illness Initial comments: Dictation was produced using [employer] dictation software. please excuse any grammatical, word or spelling errors. Chief Complaint: 47-year-old female past medical history of asthma, fibromyalgia, reflux, ALLERGIES presents with chief complaint of flushing in her abdomen with radiation down to her legs. History of Present Illness: Patient states that she's been having multiple episodes of this. She is brought in by private vehicle. She states that she's had multiple episodes of incisions in her epigastric area that radiated down to bilateral lower extremities. Patient smokes marijuana frequently. She states she did not use any illicit drugs today. She tried to smoke a cigarette when her symptoms started earlier this evening. The ROS documented in this emergency department record has been reviewed and confirmed by me. Those systems with pertinent positive or negative responses have been documented in the HPI. All other systems are other negative and/or noncontributory. - Related Data Home Medications Medication Instructions Recorded Confirmed Gabapentin [Neurontin] 600 mg PO 5XD 12/14/13 01/12/18 Omeprazole [PriLOSEC] 20 mg PO BID 12/14/13 01/12/18 cloNIDine HCL [Catapres] 0.3 mg PO 12/14/13 01/12/18 Albuterol Sulfate [Proair Hfa] 1 - 2 puff INHALATION RT-Q6H PRN 08/27/15 Beclomethasone Dipropionate [Qvar 2 puff INHALATION RT-BID 08/27/15 01/12/18 80 mcg/puff] traMADol HCl [Ultram] 50 mg PO Q8HR PRN 08/27/15 01/12/18 Albuterol Nebulized [Ventolin 2.5 mg INHALATION RT-QID PRN 09/07/17 01/12/18 Nebulized] Melatonin 6 mg PO 09/07/17 01/12/18 Polyethylene Glycol 3350 [Miralax] 51 gm PO DAILY@1500 09/07/17 01/12/18 Ranitidine HCl [Zantac] 150 mg PO BID 09/07/17 01/12/18 Sertraline HCl [Zoloft] 50 mg PO DAILY 09/07/17 01/12/18 Allergies Allergy/AdvReac Type Severity Reaction Status Date / Time diclofenac [From Voltaren] Allergy Anaphylaxis Verified 01/13/18 00:04 mold Allergy Wheezing Verified 01/13/18 00:04 NSAIDS (Non-Steroidal Allergy Rash/Hives Verified 01/13/18 00:04 Anti-Inflamma sulfamethoxazole Allergy Itching Verified 01/13/18 00:04 [From Bactrim] trimethoprim [From Bactrim] Allergy Itching Verified 01/13/18 00:04 acetaminophen AdvReac Nausea & Verified 01/13/18 00:04 [From Tylenol-Codeine #3] Vomiting aspirin AdvReac Nausea & Verified 01/13/18 00:04 Vomiting codeine phosphate AdvReac Nausea & Verified 01/13/18 00:04 [From Tylenol-Codeine #3] Vomiting Milk Containing Products AdvReac Nausea & Verified 01/13/18 00:04 Vomiting Penicillins AdvReac Rash/Hives Verified 01/13/18 00:04 Review of Systems ROS Statement: Those systems with pertinent positive or pertinent negative responses have been documented in the HPI. ROS Other: All systems not noted in ROS Statement are negative. Past Medical History Past Medical History: Asthma, Fibromyalgia, GERD/Reflux History of Any Multi-Drug Resistant Organisms: None Reported Past Surgical History: Cholecystectomy, Orthopedic Surgery, Tubal Ligation, Ventriculoperitoneal Shunt Additional Past Surgical History / Comment(s): Neck surgery,dental implants, EGD. Past Anesthesia/Blood Transfusion Reactions: No Reported Reaction Past Psychological History: Anxiety, Bipolar, Depression, PTSD Smoking Status: Current every day smoker Past Alcohol Use History: None Reported Past Drug Use History: Marijuana - Past Family History Mother Family Medical History: No Reported History Sister(s) Family Medical History: Cancer General Exam - General Exam Comments Initial Comments: PHYSICAL EXAM: General Impression: Alert and oriented x3, not in acute distress HEENT: Normocephalic atraumatic, extra-ocular movements intact, pupils equal and reactive to light bilaterally, mucous membranes moist. Cardiovascular: Heart regular rate and rhythm, S1&S2 audible, no murmurs, rubs or gallops Chest: Lungs clear to auscultation bilaterally, no rhonchi, no wheeze, no rales Abdomen: Bowel sounds present, abdomen soft, non-tender, non-distended, no organomegaly Musculoskeletal: Pulses present and equal in all extremities, no peripheral edema Motor: Power 5/5 bilaterally, no focal deficits noted Neurological: CN II-XII grossly intact, no focal motor or sensory deficits noted Skin: Intact with no visualized rashes Psych: Normal affect and mood Limitations: no limitations Course Vital Signs 01/13/18 00:00 Temperature 97.5 F L Pulse Rate 90 Respiratory 20 Rate Blood Pressure 143/65 O2 Sat by Pulse 96 Oximetry Medical Decision Making - Medical Decision Making ED course: 47-year-old female presents with strains constellation of symptoms. Vital signs upon arrival are within normal limits. During obtaining of history and physical examination patient became verbally aggressive towards me. She states that she did not want to be treated here in the emergency department. Patient has a history of anxiety. Patient was offered anxiety medication and screening labs and x-ray. Patient became very accusatory saying that I was actually beating her symptoms to anxiety. Discussed with patient that she appears well and is hemodynamically stable. Discussed with patient that she does not appear to be having any life-threatening issues at this time given history of present illness. Patient refused wanting any more treatment. I stepped away from the room with the intention of going back to talk more with patient however Patient eloped. Disposition Clinical Impression: Adverse reaction to drug Disposition: Left Against Medical Advice Is patient prescribed a controlled substance at d/c from ED?: No Referrals: Albino Tyler MD [Primary Care Provider] - 1-2 days
== END 2018-01-13 00:27 | disposition left against medical advice (07) ==
LOC: EC 23:55
DX: R23.2 Flushing (principal); T50.905A Adverse effect of unspecified drugs, medicaments and biological substances, initial encounter; J45.909 Unspecified asthma, uncomplicated; M79.7 Fibromyalgia; K21.9 Gastro-esophageal reflux disease without esophagitis; F31.9 Bipolar disorder, unspecified; F43.10 Post-traumatic stress disorder, unspecified; F17.200 Nicotine dependence, unspecified, uncomplicated; Z90.49 Acquired absence of other specified parts of digestive tract; Z98.2 Presence of cerebrospinal fluid drainage device; Z98.51 Tubal ligation status; Z98.890 Other specified postprocedural states; Z79.51 Long term (current) use of inhaled steroids; Z79.899 Other long term (current) drug therapy; Z88.0 Allergy status to penicillin; Z88.1 Allergy status to other antibiotic agents; Z88.2 Allergy status to sulfonamides; Z88.5 Allergy status to narcotic agent; Z88.6 Allergy status to analgesic agent; Z88.8 Allergy status to other drugs, medicaments and biological substances; Z91.011 Allergy to milk products; Z91.048 Other nonmedicinal substance allergy status
CPT/HCPCS: 96361; 96374; 99283; 99284

== ENCOUNTER → 2018-03-16 | Outpatient (CLI) | payer MEDICARE ==
--- NOTE | 2018-03-16 10:51 | MM ---
Reason for exam: follow-up at short interval from prior study. Last mammogram was performed 6 months ago. History: Benign stereotactic core biopsy of the right breast, January 11, 2002. Physical Findings: Nurse did not find any significant physical abnormalities on exam. MG 3D Diag Mammo W/Cad LT CC, MLO, and XCCL view(s) were taken of the left breast. Technologist: Ebonie Reyes RT (R)(M) Prior study comparison: September 02, 2017, bilateral MG 3d diag mammo w/cad JIMMIE. March 06, 2015, bilateral MG diagnostic mammo w CAD JIMMIE. The breast tissue is heterogeneously dense. This may lower the sensitivity of mammography. No significant new findings when compared with previous films. These results were verbally communicated with the patient and result sheet given to the patient on 03/16/18. ASSESSMENT: Benign, BI-RAD 2 RECOMMENDATION: Routine screening mammogram of both breasts in 6 months. Back on schedule for August 2017.
== END | disposition home or self-care (01) ==
LOC: RADMAMWWP 09:29
PROVIDERS: ATTEND Obstetrics & Gynecology
DX: R92.8 Other abnormal and inconclusive findings on diagnostic imaging of breast (principal)
CPT/HCPCS: 77065; G0279; 77061

== ENCOUNTER → 2018-04-07 | Outpatient (CLI) | payer MEDICARE ==
--- NOTE | 2018-04-07 12:07 | XR ---
EXAMINATION TYPE: XR shoulder complete RT DATE OF EXAM: 04/07/2018 CLINICAL HISTORY: Right shoulder pain. TECHNIQUE: Three views of the right shoulder are obtained. COMPARISON: None. FINDINGS: There is no acute fracture/dislocation evident in the right shoulder. The acromioclavicul ar and glenohumeral joint spaces appear within normal limits. The visualized ribs are intact and unr emarkable. IMPRESSION: Unremarkable study.
--- NOTE | 2018-04-07 12:08 | XR ---
EXAMINATION TYPE: XR knee complete RT DATE OF EXAM: 04/07/2018 CLINICAL HISTORY: Right knee pain TECHNIQUE: Three views of the right knee are obtained. COMPARISON: Prior bilateral knee x-ray March 28, 2015 FINDINGS: There is no acute fracture/dislocation evident in right knee. Mild medial tibiofemoral com partment narrowing is redemonstrated felt stable. There is mild narrowing and spurring patellofemoral compartment felt more prominent from prior. The overlying soft tissue appears unremarkable. IMPRESSION: As above.
== END ==
LOC: RADXRMAIN 11:45
PROVIDERS: ATTEND Internal Medicine
DX: M25.861 Other specified joint disorders, right knee (principal); M25.519 Pain in unspecified shoulder

== ENCOUNTER 2018-09-07 12:06 | Emergency (ER) | payer MEDICARE, OTHER ==
[2018-09-07 12:13] VITALS: RESP 18
[2018-09-07 13:05] LABS: Basophils # (A) 0.1 k/uL (0-0.2); Basophils % (A) 1 %; Eosinophils # (A) 0.3 k/uL (0-0.7); Eosinophils % (A) 4 %; HCT 37.4 % (34.0-46.0); Lymphocytes # (A) 2.6 k/uL (1.0-4.8); Lymphocytes % (A) 28 %; MCH 26.8 pg (25.0-35.0); MCV 83.6 fL (80.0-100.0); Mean Platelet Volume 7.9; Monocytes # (A) 0.5 k/uL (0-1.0); Monocytes % (A) 5 %; Neutrophils # (A) 5.7 k/uL (1.3-7.7); Neutrophils % (A) 60 %; Platelet Count 248 k/uL (150-450); RBC 4.48 m/uL (3.80-5.40); RDW 14.4 % (11.5-15.5); WBC 9.5 k/uL (3.8-10.6)
[2018-09-07 13:11] LABS: INR 0.9 (<1.2); Partial Thromboplastin Time 24.7 sec (22.0-30.0); Prothrombin Time 9.6 sec (9.0-12.0)
[2018-09-07 13:12] LABS: Anion Gap 9 mmol/L; Blood Urea Nitrogen 12 mg/dL (7-17); Calcium 9.6 mg/dL (8.4-10.2); Carbon Dioxide 24 mmol/L (22-30); Chloride 108 mmol/L (98-107); Glucose 106 mg/dL (74-99); Potassium 4.1 mmol/L (3.5-5.1); Sodium 141 mmol/L (137-145)
--- NOTE | 2018-09-07 13:17 | XR ---
EXAMINATION TYPE: XR chest 2V DATE OF EXAM: 09/07/2018 COMPARISON: 09/07/2017 HISTORY: 48-year-old female with dysrhythmia TECHNIQUE: PA and lateral views FINDINGS: The cardiomediastinal silhouette, aorta, and pulmonary vasculature are within normal limits. Mild int erstitial prominence is unchanged. Otherwise, lungs and pleural spaces are clear. IMPRESSION: Chronic changes, possible chronic bronchitis/asthma. Otherwise, no acute cardiopulmonary process.
--- NOTE | 2018-09-07 14:29 | ED ---
Arrhythmia/Palpitations HPI - General Chief Complaint: Arrhythmia/Palpitations Stated Complaint: palpitations Time Seen by Provider: 09/07/18 12:19 Source: patient Mode of arrival: ambulatory Limitations: no limitations - History of Present Illness Initial Comments: The patient is a 48 year old female who presents to the ER with complaint of chest palpitations. Admits that she has had several episodes which have been going on for the past 1.5 weeks. They occur mostly at night. States she will lay down to rest and notice that her heart is racing. She has associated chest pain with it. She is unable to get sleep at night. She denies any changes in her medications. Denies any [id number] supplements. No increased caffeine intake. She denies a previous cardiac history. She had a stress test performed however was approximately 20 years ago. The chest pain is sharp in nature. There is no radiation of the pain. It does make her mildly short of breath. No pleuritic chest pain. No ripping or tearing sensation to her back. She admits to associated diaphoresis. Also has nausea but no vomiting. Episodes will spontaneously resolve on their own. She did call her primary care physician who told her to come in to the emergency room for evaluation. She has a large family history of cardiac disease. States her mother had an [place] at a young age. She denies a history of blood clotting disorders. No history of PEs or DVTs. Denies exogenous hormone use. No calf pain or swelling. Denies hemoptysis, cough, fevers or chills. There are no alleviating, precipitating or modifying factors - Related Data Home Medications Medication Instructions Recorded Confirmed Gabapentin [Neurontin] 600 mg PO 5XD 12/14/13 09/07/18 Omeprazole [PriLOSEC] 20 mg PO BID 12/14/13 09/07/18 cloNIDine HCL [Catapres] 0.3 mg PO HS 12/14/13 09/07/18 Beclomethasone Dipropionate [Qvar 2 puff INHALATION RT-BID 08/27/15 09/07/18 80 mcg/puff] traMADol HCl [Ultram] 50 mg PO Q8HR PRN 08/27/15 09/07/18 Melatonin 6 mg PO HS 09/07/17 09/07/18 Polyethylene Glycol 3350 [Miralax] 51 gm PO DAILY 09/07/17 09/07/18 Fluticasone/Vilanterol [Breo 1 puff INHALATION RT-DAILY 09/07/18 09/07/18 Ellipta 100-25 Mcg Inhaler] Allergies Allergy/AdvReac Type Severity Reaction Status Date / Time diclofenac [From Voltaren] Allergy Anaphylaxis Verified 09/07/18 12:31 mold Allergy Wheezing Verified 09/07/18 12:31 NSAIDS (Non-Steroidal Allergy Rash/Hives Verified 09/07/18 12:31 Anti-Inflamma sulfamethoxazole Allergy Itching Verified 09/07/18 12:31 [From Bactrim] trimethoprim [From Bactrim] Allergy Itching Verified 09/07/18 12:31 acetaminophen AdvReac Nausea & Verified 09/07/18 12:31 [From Tylenol-Codeine #3] Vomiting aspirin AdvReac Nausea & Verified 09/07/18 12:31 Vomiting codeine phosphate AdvReac Nausea & Verified 09/07/18 12:31 [From Tylenol-Codeine #3] Vomiting Milk Containing Products AdvReac Nausea & Verified 09/07/18 12:31 Vomiting Penicillins AdvReac Rash/Hives Verified 09/07/18 12:31 Review of Systems ROS Statement: Those systems with pertinent positive or pertinent negative responses have been documented in the HPI. ROS Other: All systems not noted in ROS Statement are negative. Past Medical History Past Medical History: Asthma, Fibromyalgia, GERD/Reflux History of Any Multi-Drug Resistant Organisms: None Reported Past Surgical History: Cholecystectomy, Orthopedic Surgery, Tubal Ligation, Ventriculoperitoneal Shunt Additional Past Surgical History / Comment(s): Neck surgery,dental implants, EGD. Past Anesthesia/Blood Transfusion Reactions: No Reported Reaction Past Psychological History: Anxiety, Bipolar, Depression, PTSD Smoking Status: Current every day smoker Past Alcohol Use History: None Reported Past Drug Use History: Marijuana - Past Family History Mother Family Medical History: No Reported History Sister(s) Family Medical History: Cancer General Exam Limitations: no limitations General appearance: alert, in no apparent distress Head exam: Present: atraumatic, normocephalic Eye exam: Present: normal appearance, PERRL, EOMI Pupils: Present: normal accommodation ENT exam: Present: normal exam, normal oropharynx, mucous membranes moist Neck exam: Present: normal inspection. Absent: thyromegaly Respiratory exam: Present: normal lung sounds bilaterally. Absent: respiratory distress, wheezes, rales, rhonchi Cardiovascular Exam: Present: regular rate, normal rhythm, normal heart sounds. Absent: systolic murmur, diastolic murmur GI/Abdominal exam: Present: soft, normal bowel sounds. Absent: distended, tenderness Extremities exam: Present: full ROM Neurological exam: Present: alert, oriented X3, CN II-XII intact, normal gait, reflexes normal Psychiatric exam: Present: normal affect Skin exam: Present: warm, dry Course Vital Signs 09/07/18 09/07/18 12:11 14:51 Temperature 97.9 F 98.0 F Pulse Rate 80 64 Respiratory 18 18 Rate Blood Pressure 119/54 123/73 O2 Sat by Pulse 98 97 Oximetry EKG Findings - EKG Results: EKG: interpreted by LARA, sinus rhythm, normal QRS Medical Decision Making - Medical Decision Making The patient was seen by myself. She was placed into room 16. A 12-lead EKG was performed and demonstrates normal sinus rhythm. No ST segment elevations or depressions concerning for ischemic changes. No signs of Burt Parkinson White or Brugada syndrome. The patient is placed on continuous pulse ox and cardiac monitoring. I recommend laboratory studies as well as a chest x-ray. Upon r eturn of the results I discussed them with the patient. I did discussed the diagnosis, differential and treatment options. The patient's first troponin is negative. I did recommend hospital admission in order to continue to trend the patient's troponins. I also requested that we keep the patient on a cardiac rehab nurse. I will order a stress test and an echo for the morning. The patient stated that she needed to leave the emergency room at this time and she did have to go take care of her sister's pets. I did inform her of the risks of leaving without completing a full cardiac workup. These risks include permanent disability and even . Patient understood these risks and was able to repeat them back to me in her own words. I did inform patient that I would have her leave AGAINST MEDICAL ADVICE for which she also did agree. She states that if she has any new or worsening symptoms that she would come back in to the emergency room. Patient was provided with AMA paperwork and she left in stable condition - Differential Diagnosis arrythmia, palpitations, acs - Lab Data Result diagrams: 09/07/18 12:45 09/07/18 12:45 Lab Results 09/07/18 09/07/18 09/07/18 Range/Units 12:45 12:45 12:45 WBC 9.5 (3.8-10.6) k/uL RBC 4.48 (3.80-5.40) m/uL Hgb 12.0 (11.4-16.0) gm/dL Hct 37.4 (34.0-46.0) % MCV 83.6 (80.0-100.0) fL MCH 26.8 (25.0-35.0) pg MCHC 32.0 (31.0-37.0) g/dL RDW 14.4 (11.5-15.5) % Plt Count 248 (150-450) k/uL Neutrophils % 60 % Lymphocytes % 28 % Monocytes % 5 % Eosinophils % 4 % Basophils % 1 % Neutrophils # 5.7 (1.3-7.7) k/uL Lymphocytes # 2.6 (1.0-4.8) k/uL Monocytes # 0.5 (0-1.0) k/uL Eosinophils # 0.3 (0-0.7) k/uL Basophils # 0.1 (0-0.2) k/uL PT 9.6 (9.0-12.0) sec INR 0.9 (<1.2) APTT 24.7 (22.0-30.0) sec Sodium 141 (137-145) mmol/L Potassium 4.1 (3.5-5.1) mmol/L Chloride 108 H (98-107) mmol/L Carbon Dioxide 24 (22-30) mmol/L Anion Gap 9 mmol/L BUN 12 (7-17) mg/dL Creatinine 0.75 (0.52-1.04) mg/dL Est GFR (CKD-EPI)AfAm >90 (>60 ml/min/1.73 sqM) Est GFR (CKD-EPI)NonAf >90 (>60 ml/min/1.73 sqM) Glucose 106 H (74-99) mg/dL Calcium 9.6 (8.4-10.2) mg/dL Magnesium 2.0 (1.6-2.3) mg/dL Troponin I (0.000-0.034) ng/mL TSH 1.890 (0.465-4.680) mIU/L 09/07/18 Range/Units 12:45 WBC (3.8-10.6) k/uL RBC (3.80-5.40) m/uL Hgb (11.4-16.0) gm/dL Hct (34.0-46.0) % MCV (80.0-100.0) fL MCH (25.0-35.0) pg MCHC (31.0-37.0) g/dL RDW (11.5-15.5) % Plt Count (150-450) k/uL Neutrophils % % Lymphocytes % % Monocytes % % Eosinophils % % Basophils % % Neutrophils # (1.3-7.7) k/uL Lymphocytes # (1.0-4.8) k/uL Monocytes # (0-1.0) k/uL Eosinophils # (0-0.7) k/uL Basophils # (0-0.2) k/uL PT (9.0-12.0) sec INR (<1.2) APTT (22.0-30.0) sec Sodium (137-145) mmol/L Potassium (3.5-5.1) mmol/L Chloride (98-107) mmol/L Carbon Dioxide (22-30) mmol/L Anion Gap mmol/L BUN (7-17) mg/dL Creatinine (0.52-1.04) mg/dL Est GFR (CKD-EPI)AfAm (>60 ml/min/1.73 sqM) Est GFR (CKD-EPI)NonAf (>60 ml/min/1.73 sqM) Glucose (74-99) mg/dL Calcium (8.4-10.2) mg/dL Magnesium (1.6-2.3) mg/dL Troponin I <0.012 (0.000-0.034) ng/mL TSH (0.465-4.680) mIU/L - EKG Data EKG shows normal: sinus rhythm Rate: normal When compared to previous EKG there are: previous EKG unavailable - Radiology Data Radiology results: report reviewed No acute findings on chest x-ray Disposition Clinical Impression: Palpitations Disposition: HOME SELF-CARE Condition: Stable Instructions (If sedation given, give patient instructions): Heart Palpitations (ED) Additional Instructions: Please follow up with Dr. Tyler for further cardiac testing. You will need Holter monitoring, an echo of your heart and stress testing. We did recommend that you be admitted to the hospital. Return to the ER for any new or worsening symptoms Is patient prescribed a controlled substance at d/c from ED?: No Referrals: Albino Tyler MD [Primary Care Provider] - 1-2 days Time of Disposition: 14:25
[2018-09-07 14:52] VITALS: BP 123/73; PULSE 64; TEMP 98
== END 2018-09-07 14:58 | disposition home or self-care (01) ==
LOC: EC 12:06
DX: I24.9 Acute ischemic heart disease, unspecified (principal); I49.9 Cardiac arrhythmia, unspecified; J45.909 Unspecified asthma, uncomplicated; M79.7 Fibromyalgia; K21.9 Gastro-esophageal reflux disease without esophagitis; F17.200 Nicotine dependence, unspecified, uncomplicated; Z79.51 Long term (current) use of inhaled steroids; Z79.899 Other long term (current) drug therapy; Z88.6 Allergy status to analgesic agent; Z91.018 Allergy to other foods; Z88.2 Allergy status to sulfonamides; Z88.1 Allergy status to other antibiotic agents; Z88.5 Allergy status to narcotic agent; Z88.0 Allergy status to penicillin; Z91.011 Allergy to milk products; Z98.2 Presence of cerebrospinal fluid drainage device
CPT/HCPCS: 36415; 71046; 80048; 83735; 84443; 84484; 85025; 85610; 85730; 93005; 99285

== ENCOUNTER → 2018-11-05 | Outpatient (CLI) | payer MEDICARE, OTHER ==
[2018-11-05 15:58] LABS: Vitamin D 25 Hydroxy 16.4 ng/mL (30.0-100.0)
[2018-11-05 16:33] LABS: Folate, Serum 16.2 ng/mL
[2018-11-05 16:34] LABS: C Reactive Protein <0.4 mg/dL (0.0-0.8); Calcium 9.4 mg/dL (8.7-10.3); Creatine Kinase 72 U/L (26-186); Magnesium 2.2 mg/dL (1.5-2.4)
[2018-11-05 17:06] LABS: Hemoglobin A1C 6.4 % (4.0-6.0)
[2018-11-05 17:19] LABS: DNA Double-Stranded NEGATIVE (NEGATIVE); RNP 0.7 AI; Scleroderma SC-70 Ab <0.2 AI
[2018-11-09 14:27] LABS: Histone Antibody 0.3 UNITS (<1.0)
[2018-11-09 14:50] LABS: Cyclic Citrullinated Pep IgG 6
[2018-11-09 17:28] LABS: Vitamin K 0.36 nmol/L (0.22-4.88)
== END | disposition home or self-care (01) ==
LOC: LABWHC1 07:20
PROVIDERS: ATTEND Psychiatry & Neurology Neurology
DX: G89.4 Chronic pain syndrome (principal); M25.50 Pain in unspecified joint; Z79.899 Other long term (current) drug therapy
CPT/HCPCS: 36415; 82306; 82310; 82550; 82607; 82746; 83036; 83516; 83519; 83735; 84207; 84425; 84446; 84590; 84591; 84597; 85652; 86038; 86140; 86200; 86225; 86235

== ENCOUNTER 2018-12-04 03:21 | Emergency (ER) | payer MEDICARE ==
[2018-12-04 03:28] VITALS: BP 121/72; PULSE 60; RESP 20; TEMP 97.7
--- NOTE | 2018-12-04 03:42 | ED ---
Extremity Problem HPI - General Chief complaint: Extremity Problem,Nontraumatic Stated complaint: Shoulder Pain Time Seen by Provider: 12/04/18 03:41 Source: patient Mode of arrival: ambulatory Limitations: no limitations - History of Present Illness Initial comments: Becky is a 48-year-old female with a history of fibromyalgia who presents to the emergency department today for evaluation of right-sided shoulder pain. Patient reports she's experienced intermittent pain in the shoulder for a long. However over the past 2 days the pain is been unbearable. Patient reports that with her fibromyalgia she just can't cope with this type of pain. Patient denies any previous significant injury or injury to this shoulder. Patient denies any recent fevers, chills nausea or vomiting. Patient reports she has pain with any movement of the shoulder so she's been trying to keep the arm straight down, however has noticed some swelling in her hand because of this. She did try a pain patch on the shoulder with minimal relief. - Related Data Home Medications Medication Instructions Recorded Confirmed Gabapentin [Neurontin] 600 mg PO 5XD 12/14/13 12/04/18 Omeprazole [PriLOSEC] 20 mg PO BID 12/14/13 12/04/18 cloNIDine HCL [Catapres] 0.3 mg PO HS 12/14/13 12/04/18 Beclomethasone Dipropionate [Qvar 2 puff INHALATION RT-BID 08/27/15 12/04/18 80 mcg/puff] traMADol HCl [Ultram] 50 mg PO Q8HR PRN 08/27/15 12/04/18 Melatonin 6 mg PO HS 09/07/17 12/04/18 Polyethylene Glycol 3350 [Miralax] 51 gm PO DAILY 09/07/17 12/04/18 Fluticasone/Vilanterol [Breo 1 puff INHALATION RT-DAILY 09/07/18 09/07/18 Ellipta 100-25 Mcg Inhaler] Previous Rx's Medication Instructions Recorded Lidocaine 5% Patch [Lidoderm] 1 patch TOPICAL DAILY #30 patch 12/04/18 Methocarbamol [Robaxin-750] 750 mg PO TID #30 tablet 12/04/18 Allergies Allergy/AdvReac Type Severity Reaction Status Date / Time diclofenac [From Voltaren] Allergy Anaphylaxis Verified 09/07/18 12:31 mold Allergy Wheezing Verified 09/07/18 12:31 NSAIDS (Non-Steroidal Allergy Rash/Hives Verified 09/07/18 12:31 Anti-Inflamma sulfamethoxazole Allergy Itching Verified 09/07/18 12:31 [From Bactrim] trimethoprim [From Bactrim] Allergy Itching Verified 09/07/18 12:31 acetaminophen AdvReac Nausea & Verified 09/07/18 12:31 [From Tylenol-Codeine #3] Vomiting aspirin AdvReac Nausea & Verified 09/07/18 12:31 Vomiting codeine phosphate AdvReac Nausea & Verified 09/07/18 12:31 [From Tylenol-Codeine #3] Vomiting Milk Containing Products AdvReac Nausea & Verified 09/07/18 12:31 Vomiting Penicillins AdvReac Rash/Hives Verified 09/07/18 12:31 Review of Systems ROS Statement: Those systems with pertinent positive or pertinent negative responses have been documented in the HPI. ROS Other: All systems not noted in ROS Statement are negative. Past Medical History Past Medical History: Asthma, Fibromyalgia, GERD/Reflux History of Any Multi-Drug Resistant Organisms: None Reported Past Surgical History: Cholecystectomy, Orthopedic Surgery, Tubal Ligation, Ventriculoperitoneal Shunt Additional Past Surgical History / Comment(s): Neck surgery,dental implants, EGD. Past Anesthesia/Blood Transfusion Reactions: No Reported Reaction Past Psychological History: Anxiety, Bipolar, Depression, PTSD Smoking Status: Current every day smoker Past Alcohol Use History: None Reported Past Drug Use History: Marijuana - Past Family History Mother Family Medical History: No Reported History Sister(s) Family Medical History: Cancer General Exam Limitations: no limitations General appearance: alert Head exam: Present: atraumatic, normocephalic Eye exam: Present: PERRL ENT exam: Present: mucous membranes moist Neck exam: Present: full ROM Respiratory exam: Absent: respiratory distress Cardiovascular Exam: Present: regular rate GI/Abdominal exam: Absent: distended Rectal exam: Present: deferred Extremities exam: Present: normal capillary refill. Absent: pedal edema, joint swelling, calf tenderness Right Shoulder Exam: Present: tenderness. Absent: full ROM, swelling, laceration, ecchymosis, deformity, crepitus, dislocation, erythema, tenderness over AC joint Upper Arm exam: Present: normal inspection Elbow exam: Present: normal inspection Forearm Wrist exam: Present: normal inspection Hand Wrist exam: Present: normal inspection Course Vital Signs 12/04/18 03:25 Temperature 97.7 F Pulse Rate 60 Respiratory 20 Rate Blood Pressure 121/72 O2 Sat by Pulse 97 Oximetry Medical Decision Making - Medical Decision Making The patient was seen and evaluated, history is obtained from patient 48-year-old female with atraumatic musculoskeletal right shoulder pain. X-rays confirm calcification of the rotator cuff, no fractures or dislocations. Patient is ALLERGIC to NSAIDs and she'll be treated with Tylenol, Lidoderm and muscle relaxers. Patient referred to orthopedics for follow-up. Disposition Clinical Impression: Right shoulder pain Disposition: HOME SELF-CARE Condition: Stable Instructions (If sedation given, give patient instructions): Rotator Cuff Tendinitis (ED) Prescriptions: Lidocaine 5% Patch [Lidoderm] 1 patch TOPICAL DAILY #30 patch Methocarbamol [Robaxin-750] 750 mg PO TID #30 tablet Is patient prescribed a controlled substance at d/c from ED?: No Referrals: Albino Tyler MD [Primary Care Provider] - 1-2 days Michael Mary DO [Medical Doctor] - 1-2 days
--- NOTE | 2018-12-04 04:18 | XR ---
EXAM: XR Right Shoulder Complete, 2 or More Views CLINICAL HISTORY: ITS.REASON XR Reason: Pain x2days TECHNIQUE: Two or more views of the right shoulder. COMPARISON: Right shoulder radiographs 04/07/2018. FINDINGS: Bones/joints: Mild arthrosis of the acromioclavicular joint. Soft tissues: Calcific tendinitis of the rotator cuff. IMPRESSION: 1. No fracture or dislocation. 2. Mild arthrosis of the acromioclavicular joint. 3. Calcific tendinitis of the rotator cuff.
[2018-12-04] MEDS ORDERED: LIDOCAINE 5% PATCH TOPICAL STA (04:25)
[2018-12-04] MEDS ORDERED: DIAZEPAM 5 MG TAB PO STA (04:25)
== END 2018-12-04 04:57 | disposition home or self-care (01) ==
LOC: EC 03:21
DX: M75.31 Calcific tendinitis of right shoulder (principal); J45.909 Unspecified asthma, uncomplicated; M79.7 Fibromyalgia; K21.9 Gastro-esophageal reflux disease without esophagitis; F17.200 Nicotine dependence, unspecified, uncomplicated; Z79.51 Long term (current) use of inhaled steroids; Z79.899 Other long term (current) drug therapy; Z88.6 Allergy status to analgesic agent; Z91.048 Other nonmedicinal substance allergy status; Z88.2 Allergy status to sulfonamides; Z88.5 Allergy status to narcotic agent; Z91.011 Allergy to milk products; Z88.0 Allergy status to penicillin
CPT/HCPCS: 99283

== ENCOUNTER 2018-12-06 00:22 | Emergency (ER) | payer MEDICARE ==
[2018-12-06] MEDS ORDERED: HYDROcodone/APAP 7.5-325MG 1 EACH TAB PO ONE (01:04)
[2018-12-06] MEDS ORDERED: DIAZEPAM 5 MG TAB PO STA (01:04)
--- NOTE | 2018-12-06 01:41 | ED ---
Extremity Problem HPI - General Chief complaint: Extremity Problem,Nontraumatic Stated complaint: Rt Shoulder Pain Time Seen by Provider: 12/06/18 00:35 Source: family Mode of arrival: ambulatory Limitations: no limitations - History of Present Illness Initial comments: 48-year-old female presenting for atraumatic right shoulder pain. Patient states she has had atraumatic right shoulder pain for the past 5 days. She states she woke up with it. Patient states she is unable to move her arm over her head secondary to pain. Patient states she did imaging studies that revealed evidence of rotator cuff disease. She states she was told to follow-up with orthopedic surgery. Patient states the sling that she is provided does not help. Patient states her Ultram that she takes at home does not help. Patient sates she is unable to sleep tonight secondary to the pain and presents emergency department for evaluation. Patient denies any chest pain shortness of breath.. Patient states the pain is mostly in the shoulder blade and his repeat reproduce with palpation or movement. Patient denies any numbness tingling or loss sensation of the right upper extremity. She denies any recent falls trauma or injuries to the neck. Denies fever, chills, mailaise. Remainder review of system negative upon arrival patient appears uncomfortable otherwise no signs of acute distress - Related Data Home Medications Medication Instructions Recorded Confirmed Gabapentin [Neurontin] 600 mg PO 5XD 12/14/13 12/04/18 Omeprazole [PriLOSEC] 20 mg PO BID 12/14/13 12/04/18 cloNIDine HCL [Catapres] 0.3 mg PO HS 12/14/13 12/04/18 Beclomethasone Dipropionate [Qvar 2 puff INHALATION RT-BID 08/27/15 12/04/18 80 mcg/puff] traMADol HCl [Ultram] 50 mg PO Q8HR PRN 08/27/15 12/04/18 Melatonin 6 mg PO HS 09/07/17 12/04/18 Polyethylene Glycol 3350 [Miralax] 51 gm PO DAILY 09/07/17 12/04/18 Fluticasone/Vilanterol [Breo 1 puff INHALATION RT-DAILY 09/07/18 09/07/18 Ellipta 100-25 Mcg Inhaler] Previous Rx's Medication Instructions Recorded Lidocaine 5% Patch [Lidoderm] 1 patch TOPICAL DAILY #30 patch 12/04/18 Methocarbamol [Robaxin-750] 750 mg PO TID #30 tablet 12/04/18 Allergies Allergy/AdvReac Type Severity Reaction Status Date / Time diclofenac [From Voltaren] Allergy Anaphylaxis Verified 09/07/18 12:31 mold Allergy Wheezing Verified 09/07/18 12:31 NSAIDS (Non-Steroidal Allergy Rash/Hives Verified 09/07/18 12:31 Anti-Inflamma sulfamethoxazole Allergy Itching Verified 09/07/18 12:31 [From Bactrim] trimethoprim [From Bactrim] Allergy Itching Verified 09/07/18 12:31 acetaminophen AdvReac Nausea & Verified 09/07/18 12:31 [From Tylenol-Codeine #3] Vomiting aspirin AdvReac Nausea & Verified 09/07/18 12:31 Vomiting codeine phosphate AdvReac Nausea & Verified 09/07/18 12:31 [From Tylenol-Codeine #3] Vomiting Milk Containing Products AdvReac Nausea & Verified 09/07/18 12:31 Vomiting Penicillins AdvReac Rash/Hives Verified 09/07/18 12:31 Review of Systems ROS Statement: Those systems with pertinent positive or pertinent negative responses have been documented in the HPI. ROS Other: All systems not noted in ROS Statement are negative. Past Medical History Past Medical History: Asthma, Fibromyalgia, GERD/Reflux History of Any Multi-Drug Resistant Organisms: None Reported Past Surgical History: Cholecystectomy, Orthopedic Surgery, Tubal Ligation, Ventriculoperitoneal Shunt Additional Past Surgical History / Comment(s): Neck surgery,dental implants, EGD. Past Anesthesia/Blood Transfusion Reactions: No Reported Reaction Past Psychological History: Anxiety, Bipolar, Depression, PTSD Smoking Status: Current every day smoker Past Alcohol Use History: None Reported Past Drug Use History: Marijuana - Past Family History Mother Family Medical History: No Reported History Sister(s) Family Medical History: Cancer General Exam - General Exam Comments Initial Comments: General: The patient is awake and alert, in no distress, and does not appear acutely ill. Eye: Pupils are equal, round and reactive to light, extra-ocular movements are intact. No nystagmus. There is normal conjunctiva bilaterally. No signs of icterus. Cardiovascular: There is a regular rate and rhythm. No murmur, rub or gallop is appreciated. Respiratory: Lungs are clear to auscultation, respirations are non-labored, breath sounds are equal. No wheezes, stridor, rales, or rhonchi. Musculoskeletal: Normal inspection of the shoulders bilaterally. Patient has positive Neer testing of the right shoulder. Patient is tender to palpation of the posterior right shoulder. No orthopnea patient the joint Normal ROM, no tenderness elbows and wrists bilaterally. Strength 5/5. Sensation intact of the upper extremities equal and comparison bilaterally including the patch region. Radial pulses equal bilaterally 2+. Patient is able to make the okay fingers crossed thumbs-up and extends the wrist bilaterally ulnar median and radial nerve appear intact. Neurological: A&O x 3. CN II-XII intact, There are no obvious motor or sensory deficits. Coordination appears grossly intact. Speech is normal. Skin: Skin is warm and dry and no rashes or lesions are noted. Psychiatric: Cooperative, appropriate mood & affect, normal judgment. Limitations: no limitations Course Vital Signs 12/06/18 12/06/18 00:27 02:35 Temperature 98.2 F 97.7 F Pulse Rate 71 91 Respiratory 20 18 Rate Blood Pressure 117/72 O2 Sat by Pulse 98 96 Oximetry Medical Decision Making - Medical Decision Making 48-year-old female presenting for pain management for right shoulder pain. Patient has tenderness to palpation of the posterior right shoulder increasing. Range of motion. Positive Neer testing. Neurovascularly intact. Previous imaging studies revealed findings consistent with rotator cuff disease. Patient states Ultram is not working at home. Patient was provided Valium in the emergency department. Patient refused pain medication. At this time we do feel patient is stable for discharge given pain is reproducible to both palpation and range of motion. With imaging studies consistent with a rotator cuff injury. Patient is agreeable care plan discharge. I instructed patient to call ortho pedic surgery in the morning to schedule follow-up. Patient discharged appearing well after discussing case with attending provider Dr. Walsh. Disposition Clinical Impression: Right shoulder pain, Rotator cuff disorder Disposition: HOME SELF-CARE Condition: Good Instructions (If sedation given, give patient instructions): Rotator Cuff Tendinitis (ED) Additional Instructions: Please use medication as discussed. Please follow-up with orthopedic as discussed. Please return to emergency room if the symptoms increase or worsen or for any other concerns. Is patient prescribed a controlled substance at d/c from ED?: No Referrals: Albino Tyler MD [Primary Care Provider] - 1-2 days Michael Mary DO [Medical Doctor] - 1-2 days Time of Disposition: 01:45
[2018-12-06 02:37] VITALS: BP 117/72; PULSE 91; RESP 18; TEMP 97.7
== END 2018-12-06 02:32 | disposition home or self-care (01) ==
LOC: EC 00:22
DX: M67.911 Unspecified disorder of synovium and tendon, right shoulder (principal); J45.909 Unspecified asthma, uncomplicated; M79.7 Fibromyalgia; K21.9 Gastro-esophageal reflux disease without esophagitis; F17.200 Nicotine dependence, unspecified, uncomplicated; Z79.51 Long term (current) use of inhaled steroids; Z79.899 Other long term (current) drug therapy; Z88.6 Allergy status to analgesic agent; Z91.018 Allergy to other foods; Z88.2 Allergy status to sulfonamides; Z88.1 Allergy status to other antibiotic agents; Z88.5 Allergy status to narcotic agent; Z88.0 Allergy status to penicillin; Z91.011 Allergy to milk products; Z98.2 Presence of cerebrospinal fluid drainage device
CPT/HCPCS: 99283

== ENCOUNTER → 2018-12-06 | Outpatient (CLI) | payer MEDICARE ==
[2018-12-06 16:45] LABS: HCT 41.1 % (34.0-46.0); HGB 13.4 gm/dL (11.4-16.0); MCH 27.6 pg (25.0-35.0); MCHC 32.6 g/dL (31.0-37.0); MCV 84.6 fL (80.0-100.0); Mean Platelet Volume 7.7; Platelet Count 307 k/uL (150-450); RBC 4.86 m/uL (3.80-5.40); RDW 14.2 % (11.5-15.5)
[2018-12-06 17:47] LABS: Erythrocyte Sedimentation Rate 22 mm/hr (0-20)
[2018-12-07 00:35] LABS: C Reactive Protein 1.5 mg/dL (0.0-0.8)
== END | disposition home or self-care (01) ==
LOC: LABWHC1 15:37
PROVIDERS: ATTEND Physician Assistant
DX: M25.511 Pain in right shoulder (principal)
CPT/HCPCS: 36415; 83520; 84550; 85027; 85652; 86140

== ENCOUNTER → 2018-12-28 | Outpatient (CLI) | payer MEDICARE | END | disposition home or self-care (01) | LOC: LABWHC1 07:06 | PROVIDERS: ATTEND Psychiatry & Neurology Pain Medicine | DX: E53.9 Vitamin B deficiency, unspecified (principal) | CPT/HCPCS: 36415; 84207 ==

== ENCOUNTER → 2019-01-12 | Outpatient (CLI) | payer MEDICARE, OTHER ==
[2019-01-12 10:48] VITALS: BP 102/68; PULSE 73; RESP 18; TEMP 98; BMI 29.0
--- NOTE | 2019-01-12 11:39 | P.HPOB ---
History of Present Illness H&P Date: 01/12/19 Chief Complaint: The patient is here for her routine gynecologic exam and ma mmogram. This is a 48-year-old with an LMP of 12/15/2017. Because she was having some bleeding after many months of amenorrhea, and endometrial biopsy was performed on 03/01/2018. This was done by Dr. Delarosa and showed weekly proliferative endometrium. She denies any vaginal bleeding for more than one year. She does experience some hot flashes. She does have occasional breast tenderness and occasional menstrual like abdominal cramps, but she has not had any more vaginal bleeding. She states she has had more frequent genital HSV outbreaks and they can occur up to 1 or 2 times per month. She would like to go back on suppressive Valtrex therapy. She is status post tubal ligation. Review of Systems She has gained about 17 pounds over the last year. She denies respiratory or cardiac problems. G.I.: some constipation. 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 She has genital HSV type II. History of Any Multi-Drug Resistant Organisms: None Reported Past Surgical History: Cholecystectomy, Orthopedic Surgery, Tubal Ligation, Ventriculoperitoneal Shunt Additional Past Surgical History / Comment(s): Neck surgery,dental implants, EGD. Arthroscopic knee surgery. Right breast biopsy. D&C x2. Past Anesthesia/Blood Transfusion Reactions: No Reported Reaction Past Psychological History: Anxiety, Bipolar, Depression, PTSD Smoking Status: Current every day smoker (Half pack per day) Past Alcohol Use History: None Reported Additional Past Alcohol Use History / Comment(s): Trying to quit. Wears a patch. Past Drug Use History: Marijuana Additional History: She is and has been with her boyfriend since 2013. She does live with him. She is considered disabled. - Past Family History Mother Family Medical History: Cancer, Hypertension Additional Family Medical History / Comment(s): Possibly uterine or cervical cancer. Sister(s) Family Medical History: Cancer Additional Family Medical History / Comment(s): Vulvar cancer. Father Family Medical History: Hypertension Medications and Allergies Home Medications Medication Instructions Recorded Confirmed Type Gabapentin [Neurontin] 600 mg PO 5XD 12/14/13 01/12/19 History Omeprazole [PriLOSEC] 20 mg PO BID 12/14/13 01/12/19 History cloNIDine HCL [Catapres] 0.3 mg PO HS 12/14/13 01/12/19 History Beclomethasone Dipropionate [Qvar 2 puff INHALATION RT-BID 08/27/15 12/04/18 History 80 mcg/puff] traMADol HCl [Ultram] 50 mg PO Q8HR PRN 08/27/15 01/12/19 History Melatonin 6 mg PO HS 09/07/17 01/12/19 History Polyethylene Glycol 3350 [Miralax] 51 gm PO DAILY 09/07/17 01/12/19 History Fluticasone/Vilanterol [Breo 1 puff INHALATION RT-DAILY 09/07/18 01/12/19 History Ellipta 100-25 Mcg Inhaler] Meloxicam [Mobic] 15 mg PO DAILY 01/12/19 01/12/19 History Tiotropium 18 Mcg/Puff [Spiriva] 1 puff INHALATION DAILY 01/12/19 01/12/19 History Allergies Allergy/AdvReac Type Severity Reaction Status Date / Time diclofenac [From Voltaren] Allergy Anaphylaxis Verified 01/12/19 10:49 mold Allergy Wheezing Verified 01/12/19 10:49 NSAIDS (Non-Steroidal Allergy Rash/Hives Verified 01/12/19 10:49 Anti-Inflamma sulfamethoxazole Allergy Itching Verified 01/12/19 10:49 [From Bactrim] trimethoprim [From Bactrim] Allergy Itching Verified 01/12/19 10:49 acetaminophen AdvReac Nausea & Verified 01/12/19 10:49 [From Tylenol-Codeine #3] Vomiting aspirin AdvReac Nausea & Verified 01/12/19 10:49 Vomiting codeine phosphate AdvReac Nausea & Verified 01/12/19 10:49 [From Tylenol-Codeine #3] Vomiting Milk Containing Products AdvReac Nausea & Verified 01/12/19 10:49 Vomiting Penicillins AdvReac Rash/Hives Verified 01/12/19 10:49 Exam Vital Signs Temp Pulse Resp BP 01/12/19 10:40 98.0 F 73 18 102/68 Intake and Output 01/11/19 01/12/19 01/12/19 22:59 06:59 14:59 Other: Weight 81.647 kg Height 5'6", weight 180 pounds, BMI 29.1. This is a well-developed well-nourished weight female who is alert and oriented times 3 in no acute distress. HEENT: Within normal limits. NECK: Supple without mass or thyromegaly. CHEST AND LUNGS: Clear to auscultation. HEART: Regular rate and rhythm. BREASTS: Are without mass or discharge. There is mild bilateral generalized breast tenderness. AXILLARY EXAM: Negative for adenopathy. BACK: Negative for CVA tenderness. ABDOMEN: Soft, nontender, without palpable masses. PELVIC EXAM: Normal external genitalia. Cervix and vagina appear normal. There is no unusual discharge. There is no evidence of prolapse. The uterus is midposition, nongravid size and nontender. There are no palpable adnexal masses or tenderness. RECTAL EXAM: negative for mass or tenderness and is negative for occult blood. EXTREMITIES: Nontender. IMPRESSION: 1. 48-year-old female status post tubal ligation who is recently postmenopausal with mild vasomotor symptoms. 2. Recurrent frequent genital HSV outbreaks. 3. Smoker PLAN: 1. Pap smear was deferred since she had a normal one on 08/25/2017. 2. Self breast awareness was discussed with the patient. 3. Screening mammogram will be done today. 4. Osteoporosis prevention was discussed. I have stressed the importance of a dequate calcium, vitamin D and regular exercise. Recommended amounts of calcium and vitamin D were also discussed. 5. I have recommended that she quit smoking. We have discussed many reasons why this is important and discussed ways of doing this. 6. She will be restarted on Valtrex 500 mg PO daily. The electronic prescription will be sent to [facility] pharmacy. 7. She was advised to return in one year for her annual well woman exam.
--- NOTE | 2019-01-13 10:48 | MM ---
Reason for exam: screening (asymptomatic). Last mammogram was performed 10 months ago. History: Benign stereotactic core biopsy of the right breast, January 11, 2002. Physical Findings: A clinical breast exam by your physician is recommended on an annual basis and results should be correlated with mammographic findings. MG 3D Screening Mammo W/Cad Bilateral CC and MLO view(s) were taken. Prior study comparison: March 16, 2018, left breast MG 3d diag mammo w/cad LT. September 02, 2017, bilateral MG 3d diag mammo w/cad JIMMIE. The breast tissue is heterogeneously dense. This may lower the sensitivity of mammography. There is a stable left upper inner quadrant mass. Benign appearing bilateral calcifications. No suspicious abnormality. Right biopsy marker noted. No significant changes when compared with prior studies. ASSESSMENT: Benign, BI-RAD 2 RECOMMENDATION: Routine screening mammogram of both breasts in 1 year.
== END | disposition home or self-care (01) ==
LOC: WWCWWP 10:34
PROVIDERS: ATTEND Obstetrics & Gynecology
DX: Z12.31 Encounter for screening mammogram for malignant neoplasm of breast (principal)
CPT/HCPCS: 77063; 77067

== ENCOUNTER → 2019-01-18 | Outpatient (CLI) | payer MEDICARE | END | disposition home or self-care (01) | LOC: LABWHC1 12:16 | PROVIDERS: ATTEND Nurse Practitioner Family | DX: M79.10 Myalgia, unspecified site (principal) | CPT/HCPCS: 36415; 82550 ==

== ENCOUNTER → 2019-03-30 | Outpatient (CLI) | payer MEDICARE ==
--- NOTE | 2019-03-30 10:37 | XR ---
EXAMINATION TYPE: XR chest 2V DATE OF EXAM: 03/30/2019 COMPARISON: 09/07/2018 HISTORY: Cough and right-sided chest pain TECHNIQUE: Frontal and lateral views of the chest are obtained. FINDINGS: There is new diffuse interstitial prominence throughout. There is no focal air space opacit y, pleural effusion, or pneumothorax seen. The cardiac silhouette size is within normal limits. Th e osseous structures are intact. Cholecystectomy clips are present. IMPRESSION: New diffuse interstitial prominence that can be seen in atypical pneumonia or bronchitis . No focal consolidation.
== END | disposition home or self-care (01) ==
LOC: RADXRMAIN 09:00
PROVIDERS: ATTEND Internal Medicine
DX: R91.8 Other nonspecific abnormal finding of lung field (principal); R05 Cough
CPT/HCPCS: 71046

== ENCOUNTER → 2019-05-31 | Outpatient (CLI) | payer MEDICARE ==
[2019-05-31 16:33] LABS: HCT 38.5 % (34.0-46.0); HGB 12.7 gm/dL (11.4-16.0); MCH 28.9 pg (25.0-35.0); MCHC 33.1 g/dL (31.0-37.0); MCV 87.3 fL (80.0-100.0); Mean Platelet Volume 9.1; Platelet Count 245 k/uL (150-450); RBC 4.41 m/uL (3.80-5.40); RDW 13.5 % (11.5-15.5); Reticulocyte % 2.4 % (0.5-2.0)
[2019-06-01 01:10] LABS: % Iron Saturation 10.61 (12.00-45.00)
[2019-06-01 01:18] LABS: T4, Free (Free Thyroxine) 0.9 ng/dL (0.80-1.80)
[2019-06-01 01:28] LABS: Ferritin 12.9 ng/mL (10.0-291.0)
== END | disposition home or self-care (01) ==
LOC: LABWHC1 15:25
PROVIDERS: ATTEND Psychiatry & Neurology Pain Medicine
DX: D64.9 Anemia, unspecified (principal); R53.83 Other fatigue; R83.8 Other abnormal findings in cerebrospinal fluid
CPT/HCPCS: 36415; 82607; 82668; 82728; 82746; 83540; 83550; 84439; 84443; 84466; 84481; 85027; 85045

== ENCOUNTER → 2019-07-05 | Outpatient (CLI) | payer MEDICARE ==
[2019-07-06 08:56] VITALS: BMI 29.3
== END ==
LOC: DBWHC3 14:02
PROVIDERS: ATTEND Nurse Practitioner
DX: R73.03 Prediabetes (principal)
CPT/HCPCS: 97802

== ENCOUNTER → 2019-11-22 | Outpatient (CLI) | payer MEDICARE, OTHER ==
[2019-11-22 08:56] LABS: Basophils % (A) 0 %; Eosinophils # (A) 0.1 k/uL (0-0.7); Eosinophils % (A) 1 %; HCT 41.8 % (34.0-46.0); HGB 13.6 gm/dL (11.4-16.0); Lymphocytes # (A) 3.4 k/uL (1.0-4.8); Lymphocytes % (A) 29 %; MCH 29.3 pg (25.0-35.0); MCHC 32.4 g/dL (31.0-37.0); MCV 90.3 fL (80.0-100.0); Mean Platelet Volume 8.9; Monocytes # (A) 0.6 k/uL (0-1.0); Monocytes % (A) 5 %; Neutrophils # (A) 7.3 k/uL (1.3-7.7); Neutrophils % (A) 63 %; Platelet Count 209 k/uL (150-450); RBC 4.64 m/uL (3.80-5.40); RDW 15.3 % (11.5-15.5); WBC 11.7 k/uL (3.8-10.6)
[2019-11-22 10:37] LABS: Erythrocyte Sedimentation Rate 9 mm/hr (0-20)
[2019-11-22 18:06] LABS: ALT 16 U/L (8-44); AST 12 U/L (13-35); African American GFR (CKD) 99.6 (60.0-200.0); Alkaline Phosphatase 85 U/L (41-126); BUN/Creat Ratio 18.75 Ratio (12.00-20.00); C Reactive Protein <0.4 mg/dL (0.0-0.8); Calcium 9.4 mg/dL (8.7-10.3); Carbon Dioxide 25.7 mmol/L (21.6-31.8); Chloride 105 mmol/L (96-109); Globulin 2.1 g/dL (1.6-3.3); Glucose 92 mg/dL (70-110); Potassium 3.8 mmol/L (3.5-5.5); Sodium 138 mmol/L (135-145); Total Bilirubin 0.3 mg/dL (0.3-1.2); Total Protein 6.3 g/dL (6.2-8.2)
[2019-11-22 20:54] LABS: Anti-Smith Ab Interp NEGATIVE (NEGATIVE); DNA Double-Stranded NEGATIVE (NEGATIVE); JO-1 IgG Antibody <0.2 AI; Scleroderma SC-70 Ab <0.2 AI
== END | disposition home or self-care (01) ==
LOC: LABWHC1 08:05
PROVIDERS: ATTEND Internal Medicine Cardiovascular Disease
DX: I47.1 Supraventricular tachycardia (principal); M25.50 Pain in unspecified joint
CPT/HCPCS: 36415; 80053; 83516; 84439; 84443; 84481; 85025; 85652; 86038; 86140; 86225; 86235

== ENCOUNTER → 2020-02-29 | Outpatient (CLI) | payer MEDICARE, OTHER ==
[2020-02-29 10:52] LABS: African American GFR (CKD) >90 (>60 ml/min/1.73 sqM); Blood Urea Nitrogen 10 mg/dL (7-17); Non-African American GFR(CKD) >90 (>60 ml/min/1.73 sqM)
--- NOTE | 2020-02-29 12:10 | CT ---
EXAMINATION TYPE: CT abdomen pelvis w con DATE OF EXAM: 02/29/2020 COMPARISON: 09/12/2010 HISTORY: Mid Abdominal pain with constipation CT DLP: 1121.3 mGycm Automated exposure control for dose reduction was used. CONTRAST: CT scan of the abdomen pelvis is performed with IV Contrast, patient injected with 100 mL of Isovue 3 00. FINDINGS- LUNG BASES- No significant abnormality is appreciated. LIVER/GB-post cholecystectomy changes are seen.. PANCREAS- No gross abnormality is seen. SPLEEN- No gross abnormality is seen. ADRENALS- No gross abnormality is seen. KIDNEYS/BLADDER- no hydronephrosis nephrolithiasis or renal mass. BOWEL- no bowel dilatation. Normal appendix. LYMPH NODES- No greater than 1cm abdominal or pelvic lymph nodes areappreciated. OSSEOUS STRUCTURES-hypertrophic and degenerative change of the spine. OTHER- aorta of normal caliber. No free fluid or free air. IMPRESSION- 1. No acute process.
== END | disposition home or self-care (01) ==
LOC: RADCTMAIN 09:58
PROVIDERS: ATTEND Internal Medicine Hematology & Oncology
DX: R10.9 Unspecified abdominal pain (principal); Z88.8 Allergy status to other drugs, medicaments and biological substances
CPT/HCPCS: 82565; 84520; 74177; 36415; Q9967

== ENCOUNTER 2020-03-10 14:19 | Emergency (ER) | payer MEDICARE, OTHER ==
[2020-03-10 14:27] VITALS: RESP 16
[2020-03-10 14:29] VITALS: TEMP 98.7
[2020-03-10] MEDS ORDERED: FAMOTIDINE 20 MG/2 ML VIAL IV STA (14:35)
[2020-03-10] MEDS ORDERED: methylPREDNISolone SOD SUCCI 125 MG/2 ML VIAL IV STA (14:35)
[2020-03-10] MEDS ORDERED: SODIUM CHLORIDE 0.9% 500 ML 500 ML IV STA (14:35)
[2020-03-10 15:26] LABS: Basophils # (A) 0.1 k/uL (0-0.2); Basophils % (A) 0 %; Eosinophils # (A) 0.2 k/uL (0-0.7); Eosinophils % (A) 1 %; HCT 48.9 % (34.0-46.0); HGB 15.9 gm/dL (11.4-16.0); Lymphocytes # (A) 2.6 k/uL (1.0-4.8); Lymphocytes % (A) 13 %; MCH 30.7 pg (25.0-35.0); MCHC 32.5 g/dL (31.0-37.0); MCV 94.5 fL (80.0-100.0); Mean Platelet Volume 7.3; Monocytes # (A) 0.8 k/uL (0-1.0); Monocytes % (A) 4 %; Neutrophils # (A) 16.1 k/uL (1.3-7.7); Neutrophils % (A) 81 %; Platelet Count 429 k/uL (150-450); RBC 5.18 m/uL (3.80-5.40); WBC 19.9 k/uL (3.8-10.6)
[2020-03-10 15:51] LABS: ALT 22 U/L (4-34); AST 37 U/L (14-36); African American GFR (CKD) >90 (>60 ml/min/1.73 sqM); Albumin 3.8 g/dL (3.5-5.0); Alkaline Phosphatase 85 U/L (38-126); Anion Gap 9 mmol/L; Blood Urea Nitrogen 13 mg/dL (7-17); Calcium 8.8 mg/dL (8.4-10.2); Carbon Dioxide 18 mmol/L (22-30); Chloride 111 mmol/L (98-107); Glucose 147 mg/dL (74-99); Non-African American GFR(CKD) 88 (>60 ml/min/1.73 sqM); Potassium 3.9 mmol/L (3.5-5.1); Sodium 138 mmol/L (137-145); Total Bilirubin 0.6 mg/dL (0.2-1.3); Total Protein 6.7 g/dL (6.3-8.2)
--- NOTE | 2020-03-10 16:05 | ED ---
General Adult HPI - General Chief complaint: Allergic Reaction Stated complaint: Allergic reaction Time Seen by Provider: 03/10/20 14:33 Source: EMS, RN notes reviewed, old records reviewed Mode of arrival: EMS Limitations: no limitations - History of Present Illness Initial comments: 49-year-old female with previous ALLERGY to diclofenac presents with ALLERGIC reaction after taking a dose of diclofenac. Patient took this medication approximately one hour prior to arrival to the emergency department. She had been treated by EMS for anaphylactic reaction with Benadryl and epinephrine. She complained of both vomiting and diarrhea. Difficulty breathing. Diffuse erythematous rash which began suddenly. Patient states her symptoms had somewhat improved after initial medication administered but was still present. She still had some nausea, flushed feeling, and some mild dyspnea. - Related Data Home Medications Medication Instructions Recorded Confirmed Gabapentin [Neurontin] 600 mg PO Q4H 12/14/13 03/10/20 Omeprazole [PriLOSEC] 20 mg PO BID 12/14/13 03/10/20 cloNIDine HCL [Catapres] 0.3 mg PO HS 12/14/13 03/10/20 Polyethylene Glycol 3350 [Miralax] 51 gm PO DAILY PRN 09/07/17 03/10/20 Albuterol Inhaler [Ventolin Hfa 1 puff INHALATION RT-Q4H PRN 10/24/19 03/10/20 Inhaler] Fluticasone Propionate [Flovent 1 puff INHALATION RT-BID 01/17/20 03/10/20 Hfa 220 mcg] Cetirizine HCl [Zyrtec] 10 mg PO DAILY 03/10/20 03/10/20 Diclofenac Sodium Gel [Voltaren 4 gm TOPICAL QID PRN 03/10/20 03/10/20 Gel] Linaclotide [Linzess] 145 mcg PO HS 03/10/20 03/10/20 Metoclopramide [Reglan] 5 mg PO Q6H PRN 03/10/20 03/10/20 Metoprolol Tartrate [Lopressor] 12.5 mg PO BID 03/10/20 03/10/20 Montelukast [Singulair] 10 mg PO HS 03/10/20 03/10/20 Rosuvastatin [Crestor] 10 mg PO HS 03/10/20 03/10/20 diphenhydrAMINE [Benadryl] 50 mg PO Q4H PRN 03/10/20 03/10/20 valACYclovir [Valtrex] 500 mg PO QAM PRN 03/10/20 03/10/20 Previous Rx's Medication Instructions Recorded EPINEPHrine (Auto Inject) [Epipen] 0.3 mg IM ONCE PRN #2 pen 03/10/20 diphenhydrAMINE [Benadryl] 25 mg PO TID PRN #21 capsule 03/10/20 methylPREDNISolone Dose Pack 4 mg PO DIRECTED #21 package 03/10/20 [Medrol Dose Pack] Allergies Allergy/AdvReac Type Severity Reaction Status Date / Time diclofenac [From Voltaren] Allergy Anaphylaxis Verified 03/10/20 16:11 mold Allergy Wheezing Verified 03/10/20 16:11 NSAIDS (Non-Steroidal Allergy Rash/Hives Verified 03/10/20 16:11 Anti-Inflamma sulfamethoxazole Allergy Itching Verified 03/10/20 16:11 [From Bactrim] trimethoprim [From Bactrim] Allergy Itching Verified 03/10/20 16:11 acetaminophen AdvReac Nausea & Verified 03/10/20 16:11 [From Tylenol-Codeine #3] Vomiting aspirin AdvReac Nausea & Verified 03/10/20 16:11 Vomiting codeine phosphate AdvReac Nausea & Verified 03/10/20 16:11 [From Tylenol-Codeine #3] Vomiting Milk Containing Products AdvReac Nausea & Verified 03/10/20 16:11 Vomiting Penicillins AdvReac Rash/Hives Verified 03/10/20 16:11 Review of Systems ROS Statement: Those systems with pertinent positive or pertinent negative responses have been documented in the HPI. ROS Other: All systems not noted in ROS Statement are negative. 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 She has genital HSV type II. History of Any Multi-Drug Resistant Organisms: None Reported Past Surgical History: Cholecystectomy, Orthopedic Surgery, Tubal Ligation, Ventriculoperitoneal Shunt Additional Past Surgical History / Comment(s): Neck surgery,dental implants, E GD. Arthroscopic knee surgery. Right breast biopsy. D&C x2. Past Anesthesia/Blood Transfusion Reactions: No Reported Reaction Past Psychological History: Anxiety, Bipolar, Depression, PTSD Smoking Status: Current every day smoker Past Alcohol Use History: None Reported Past Drug Use History: Marijuana - Past Family History Mother Family Medical History: Cancer, Hypertension Additional Family Medical History / Comment(s): Possibly uterine or cervical cancer. Sister(s) Family Medical History: Cancer Additional Family Medical History / Comment(s): Vulvar cancer. Father Family Medical History: Hypertension General Exam Limitations: no limitations General appearance: alert, in distress Head exam: Present: atraumatic, normocephalic Eye exam: Present: normal appearance, PERRL, EOMI ENT exam: Present: normal exam, normal oropharynx Neck exam: Present: normal inspection. Absent: tenderness, meningismus Respiratory exam: Present: respiratory distress (Mild tachypnea, good air entry, no wheezing). Absent: wheezes Cardiovascular Exam: Present: normal rhythm, tachycardia GI/Abdominal exam: Present: soft. Absent: distended, tenderness, guarding Extremities exam: Present: normal inspection, normal capillary refill. Absent: pedal edema, calf tenderness Neurological exam: Present: alert, oriented X3, CN II-XII intact. Absent: motor sensory deficit Psychiatric exam: Present: anxious Skin exam: Present: warm, erythema. Absent: urticaria Course Vital Signs 03/10/20 14:22 Temperature 98.7 F Pulse Rate 114 H Respiratory 16 Rate Blood Pressure 115/88 O2 Sat by Pulse 97 Oximetry - Reevaluation(s) Reevaluation #1: 03/10/20 16:37 Patient reevaluated multiple times, symptoms are improving significantly. No respiratory distress, no tongue or lip swelling, no further vomiting. EKG Findings - EKG Comments: EKG Findings:: EKG: Sinus tachycardia, biatrial enlargement, baseline artifact, no ST segment elevation, rate of 110, UT interval 126, QRS duration 82, QTC 487 Medical Decision Making - Medical Decision Making 49-year-old female with anaphylactic reaction to diclofenac. Patient was given epinephrine by EMS, Benadryl prior to arrival and steroids and Pepcid in the emergency department. She was observed for 3 hours to ensure there was no rebound symptoms. She does have an elevated white blood cell count which I susp ect is reactive. Patient feeling much better, she will be prescribed an EpiPen, she diclofenac is on her ALLERGY list. She is aware that this is a severe anaphylactic reaction. She will be prescribed Medrol dosepak and will continue Benadryl at home. - Lab Data Result diagrams: 03/10/20 15:15 03/10/20 15:15 Lab Results 03/10/20 03/10/20 Range/Units 15:15 15:15 WBC 19.9 H (3.8-10.6) k/uL RBC 5.18 (3.80-5.40) m/uL Hgb 15.9 (11.4-16.0) gm/dL Hct 48.9 H (34.0-46.0) % MCV 94.5 (80.0-100.0) fL MCH 30.7 (25.0-35.0) pg MCHC 32.5 (31.0-37.0) g/dL RDW 12.0 (11.5-15.5) % Plt Count 429 (150-450) k/uL Neutrophils % 81 % Lymphocytes % 13 % Monocytes % 4 % Eosinophils % 1 % Basophils % 0 % Neutrophils # 16.1 H (1.3-7.7) k/uL Lymphocytes # 2.6 (1.0-4.8) k/uL Monocytes # 0.8 (0-1.0) k/uL Eosinophils # 0.2 (0-0.7) k/uL Basophils # 0.1 (0-0.2) k/uL Sodium 138 (137-145) mmol/L Potassium 3.9 (3.5-5.1) mmol/L Chloride 111 H (98-107) mmol/L Carbon Dioxide 18 L (22-30) mmol/L Anion Gap 9 mmol/L BUN 13 (7-17) mg/dL Creatinine 0.79 (0.52-1.04) mg/dL Est GFR (CKD-EPI)AfAm >90 (>60 ml/min/1.73 sqM) Est GFR (CKD-EPI)NonAf 88 (>60 ml/min/1.73 sqM) Glucose 147 H (74-99) mg/dL Calcium 8.8 (8.4-10.2) mg/dL Total Bilirubin 0.6 (0.2-1.3) mg/dL AST 37 H (14-36) U/L ALT 22 (4-34) U/L Alkaline Phosphatase 85 (38-126) U/L Total Protein 6.7 (6.3-8.2) g/dL Albumin 3.8 (3.5-5.0) g/dL Disposition Clinical Impression: Allergic reaction to drug, Anaphylaxis Disposition: HOME SELF-CARE Condition: Fair Instructions (If sedation given, give patient instructions): Anaphylaxis (ED) Additional Instructions: Do not take diclofenac. There is a small chance that he would not ALLERGIC to a otilia neck and had an ALLERGIC reaction to another sepsis. He had been prescribed an EpiPen in case symptoms return, or wheezes medication with severe ALLERGIC reaction. Prescriptions: diphenhydrAMINE [Benadryl] 25 mg PO TID PRN #21 capsule PRN Reason: Allergic Reaction EPINEPHrine (Auto Inject) [Epipen] 0.3 mg IM ONCE PRN #2 pen PRN Reason: Anaphylaxis methylPREDNISolone Dose Pack [Medrol Dose Pack] 4 mg PO DIRECTED #21 package Is patient prescribed a controlled substance at d/c from ED?: No Referrals: [facility] [Primary Care Provider] - 1-2 days Time of Disposition: 16:40
[2020-03-10 17:08] VITALS: BP 112/64; PULSE 82
== END 2020-03-10 17:17 | disposition home or self-care (01) ==
LOC: EC 14:19
DX: T88.6XXA Anaphylactic reaction due to adverse effect of correct drug or medicament properly administered, initial encounter (principal); T39.395A Adverse effect of other nonsteroidal anti-inflammatory drugs [NSAID], initial encounter; D72.829 Elevated white blood cell count, unspecified; G47.30 Sleep apnea, unspecified; J45.909 Unspecified asthma, uncomplicated; F41.9 Anxiety disorder, unspecified; F31.9 Bipolar disorder, unspecified; M79.7 Fibromyalgia; K21.9 Gastro-esophageal reflux disease without esophagitis; A60.00 Herpesviral infection of urogenital system, unspecified; F17.200 Nicotine dependence, unspecified, uncomplicated; Z79.51 Long term (current) use of inhaled steroids; Z79.899 Other long term (current) drug therapy; Z88.6 Allergy status to analgesic agent; Z88.2 Allergy status to sulfonamides; Z88.1 Allergy status to other antibiotic agents; Z88.5 Allergy status to narcotic agent; Z91.011 Allergy to milk products; Z88.0 Allergy status to penicillin; Z99.89 Dependence on other enabling machines and devices
CPT/HCPCS: 36415; 93005; 80053; 85025; 99284; 96374; 96375; J2930

== ENCOUNTER → 2020-05-04 | Outpatient (CLI) | payer MEDICARE, OTHER ==
--- NOTE | 2020-05-04 14:52 | FL ---
Right shoulder arthrogram HISTORY: Pain 5 minutes 41 seconds fluoroscopy time, 3 intraoperative images After informed consent the skin overlying a suitable path to the patient's right shoulder joint was l ocalized with fluoroscopy and the overlying skin was prepped and draped. Lidocaine was used for local anesthesia. 22-gauge needle was advanced into the joint space. Gentle hand injection of contrast mat erial was performed, spot image obtained verifying contrast administration. Patient remained in stabl e condition, no immediate application. Following the procedure needle was removed. Patient was discha rged without incident for MRI. Calcification is noted at the insertion of the rotator cuff region of the greater tuberosity IMPRESSION: Preprocedure right shoulder arthrogram, this procedure performed by the undersigned.
--- NOTE | 2020-05-05 02:42 | MR ---
EXAMINATION TYPE: MR shoulder RT w con DATE OF EXAM: 05/04/2020 COMPARISON: None HISTORY: Right shoulder pain, nerve impingement S/P cervical surgery. CONTRAST: Standard multiplanar, multisequence MRI departmental protocol utilizing 1 mL intravenous Gadavist clovis olinium contrast. Multiplanar multiecho imaging of the right shoulder was performed with articular contrast. Biceps tendon is intact. There is some thickening of the subscapularis tendon. The glenoid vasiliy appe ar intact. There is contrast opacification of the shoulder joint space. There is some mild thickening and increased signal in the supraspinatus tendon at the greater tuberosity of the humerus. There is no contrast leakage into the subdeltoid bursa. There is mild spurring at the AC joint without signifi cant impingement on the supraspinatus tendon and muscle. I see no bony destructive process. IMPRESSION: The exam shows intrasubstance tear of the supraspinatus tendon without a full-thickness tear. There i s no retraction. No evidence of glenoid labral tear. Mild spurring at the AC joint without significan t subacromial impingement.
== END | disposition home or self-care (01) ==
LOC: RADFLMAIN 12:39
PROVIDERS: ATTEND Orthopaedic Surgery Sports Medicine
DX: M75.101 Unspecified rotator cuff tear or rupture of right shoulder, not specified as traumatic (principal); M25.711 Osteophyte, right shoulder
CPT/HCPCS: 23350; 73040; 73222; Q9967

== ENCOUNTER → 2020-05-04 | Outpatient (CLI) | payer MEDICARE, OTHER | END | disposition home or self-care (01) | LOC: LABWHC1 15:25 | PROVIDERS: ATTEND Psychiatry & Neurology Pain Medicine | DX: Z51.81 Encounter for therapeutic drug level monitoring (principal); Z79.899 Other long term (current) drug therapy | CPT/HCPCS: 36415; 82180; 82306 ==

== ENCOUNTER → 2020-07-03 | Outpatient (CLI) | payer MEDICARE, OTHER ==
[2020-07-03 12:46] LABS: HCT 42.7 % (34.0-46.0); HGB 14.1 gm/dL (11.4-16.0); MCH 31.2 pg (25.0-35.0); MCHC 33.1 g/dL (31.0-37.0); MCV 94.1 fL (80.0-100.0); Mean Platelet Volume 8.3; Platelet Count 241 k/uL (150-450); RBC 4.54 m/uL (3.80-5.40); RDW 12.5 % (11.5-15.5); Reticulocyte % 2.1 % (0.5-2.0); WBC 6.3 k/uL (3.8-10.6)
[2020-07-03 22:46] LABS: Follicle Stimulating Hormone 36.1 mIU/mL
[2020-07-03 22:52] LABS: Estradiol <11.8 pg/mL
[2020-07-03 22:55] LABS: % Iron Saturation 39.35 (12.00-45.00); ALT 24 U/L (8-44); AST 19 U/L (13-35); African American GFR (CKD) 99.6 (60.0-200.0); Alkaline Phosphatase 96 U/L (41-126); BUN/Creat Ratio 18.75 Ratio (12.00-20.00); Calcium 9.6 mg/dL (8.7-10.3); Carbon Dioxide 24.6 mmol/L (21.6-31.8); Chloride 108 mmol/L (96-109); Globulin 2.1 g/dL (1.6-3.3); Glucose 89 mg/dL (70-110); Iron 109 ug/dL (50-170); Sodium 141 mmol/L (135-145); Total Bilirubin 0.4 mg/dL (0.2-1.2); Total Iron Binding Capacity 277 ug/dL (228-460); Total Protein 6.5 g/dL (6.2-8.2)
[2020-07-03 23:05] LABS: Ferritin 115.8 ng/mL (10.0-291.0); Folate, Serum 9.9 ng/mL
[2020-07-04 17:14] LABS: Anti-Mullerian Hormone <0.08 ng/mL
[2020-07-05 07:39] LABS: Vit B1(Thiamine) 64 ug/L (38-122)
[2020-07-05 16:30] LABS: Estrogens Total 61 pg/mL
[2020-07-11 07:05] LABS: Nicotinamide 32 ng/mL; Nicotinic Acid None Detected; Nicotinuric Acid None Detected
== END | disposition home or self-care (01) ==
LOC: LABWHC1 10:51
PROVIDERS: ATTEND Psychiatry & Neurology Pain Medicine
DX: D64.9 Anemia, unspecified (principal); R53.83 Other fatigue; F39 Unspecified mood [affective] disorder; R41.3 Other amnesia; Z51.81 Encounter for therapeutic drug level monitoring
CPT/HCPCS: 36415; 80053; 82397; 82533; 82607; 82626; 82668; 82670; 82672; 82728; 82746; 83001; 83540; 83550; 84207; 84425; 84439; 84443; 84466; 84481; 84591; 85027; 85045

== ENCOUNTER → 2020-07-04 | Outpatient (CLI) | payer MEDICARE, OTHER ==
--- NOTE | 2020-07-04 15:00 | BD ---
EXAMINATION TYPE: Axial Bone Density DATE OF EXAM: 07/04/2020 COMPARISON: NONE CLINICAL HISTORY: Post menopausal screening Height: 66 IN Weight: 184 LBS FRAX RISK QUESTIONS: Current Tobacco Use: YES RISK FACTORS HISTORY OF: Family History of Osteoporosis: YES MOTHER AND GRANDMOTHER Active: YES Diet low in dairy products/other sources of calcium: YES Postmenopausal woman: AGE 45 Frequent falls: YES FALLS DUE TO TRIPPING OVER THINGS MEDICATIONS: Additional Medications: VIT D, NUERONTIN,CATAPRES, PRILOSEC, MELATONIN, ASTHMA INHALER EXAM MEASUREMENTS: Bone mineral densitometry was performed using the [employer]. Bone mineral density as measured about the Lumbar spine is: ----- L1-L4(G/cm2): 1.003 T Score Values are as follows: ----- L2: -2.0 ----- L3: -1.5 ----- L4: -1.0 ----- L1-L4: -1.5 Bone mineral density BASELINE Bone mineral density about the R hip (g/cm2): 0.864 Bone mineral density about the L hip (g/cm2): 0.903 T Score values are as follows: -----R Neck: -1.3 -----L Neck: -1.0 -----R Total: -0.9 -----L Total: -0.5 Bone mineral density BASELINE IMPRESSION: Osteopenia (T Score between -2.5 and -1). There is slightly increased risk of fracture and the patient may be considered for treatment. Re-Screen 2-5 years. NOTE: T-SCORE=SD OF THE YOUNG ADULT MEAN.
== END | disposition home or self-care (01) ==
LOC: RADBDWWP 07:27
PROVIDERS: ATTEND Psychiatry & Neurology Neurology
DX: M85.80 Other specified disorders of bone density and structure, unspecified site (principal)
CPT/HCPCS: 77080

== ENCOUNTER → 2020-08-13 | Outpatient (CLI) | payer MEDICARE, OTHER ==
--- NOTE | 2020-08-13 08:43 | CT ---
EXAMINATION TYPE: CT sinus wo con DATE OF EXAM: 08/13/2020 COMPARISON: None HISTORY: 50-year-old female J01.90 Acute sinusitis, unspecified CT DLP: 567 mGycm Automated exposure control for dose reduction was used. TECHNIQUE: Noncontrast axial views of the paranasal sinuses were obtained. Coronal reconstructions pe rformed. FINDINGS: PARANASAL SINUSES: Some dental implants are noted. 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 There is a 9 mm cystic area interposed within the expecte d location of the right first maxillary molar. Similar 8mm round lucency at the apex of the right sec ond premolar dental implant . Trace mucosal thickening near the infundibulum of the right maxillary sinus. Otherwise, the left frontal, ethmoid, left maxillary and sphenoid sinuses are clear and well pneumati zed. There is no air-fluid level. Reactive oscar- osteogenesis is not seen. There is no destruction of the osseous nuñez of the paranasal sinuses. THE NASAL CAVITY: The osteomeatal complexes are patent. Slight rightward bowing of the nasal septum. The imaged brain shows old lacunar infarct left basal ganglia and mild cerebral cortical volume loss. The orbits are normal in appearance. Visualized mastoid air cells and middle ear cavities are well pneumatized. Reformatted images confirm above findings. IMPRESSION: 1. 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 There is a 9 mm cystic area interposed within the expected lo cation of the absent right maxillary molar, possible dentigerous cyst. A smaller 8 mm rounded lucency at the apex of the adjacent right second molar dental implant, possible additional dentigerous cyst or residual periapical lucency from prior periodontal disease. Clinically correlate. 2. Only trace mucosal thickening within the right maxillary sinus. Remaining paranasal sinuses are cl ear. 3. Slight rightward bowing of the nasal septum.
== END | disposition home or self-care (01) ==
LOC: RADCTMAIN 07:23
PROVIDERS: ATTEND Otolaryngology
DX: J34.89 Other specified disorders of nose and nasal sinuses (principal); Z96.5 Presence of tooth-root and mandibular implants
CPT/HCPCS: 70486

== ENCOUNTER → 2020-10-23 | Outpatient (CLI) | payer MEDICARE, OTHER ==
--- NOTE | 2020-10-23 13:13 | FL ---
Modified barium swallow. HISTORY: Dysphagia. Modified barium swallow was performed with the department of speech pathology. The patient was prese nted with various consistencies of barium. There is no evidence for aspiration or penetration. Full report is to follow from the department of speech pathology. Impression: Normal study.
== END | disposition home or self-care (01) ==
LOC: RADFLMAIN 10:52
PROVIDERS: ATTEND Psychiatry & Neurology Neurology
DX: R13.10 Dysphagia, unspecified (principal)
CPT/HCPCS: 74230

== ENCOUNTER → 2020-12-27 | Outpatient (CLI) | payer MEDICARE, OTHER | END | disposition home or self-care (01) ==

== ENCOUNTER → 2021-02-12 | Outpatient (CLI) | payer MEDICARE, OTHER ==
[2021-02-12 08:21] VITALS: BP 102/62; PULSE 73; RESP 18; TEMP 98.3
--- NOTE | 2021-02-12 09:03 | P.HPOB ---
History of Present Illness H&P Date: 02/12/21 Chief Complaint: The patient is here for her routine gynecologic exam and ma mmogram. This is a 50-year-old with an LMP of 2018. The patient states her breasts felt sore recently. She denies any nipple leakage. She has had several genital HSV outbreaks, but has not always been consistent in taking her valacyclovir daily. She has no other gynecologic complaints. Review of Systems She is gained about 8 pounds over the past year. She denies respiratory problems. Cardiac: Occasional palpitations. She has seen suggestion clerk for this in the past. GI: She has been experiencing some constipation. Past Medical History Past Medical History: Asthma, CVA/TIA, Fibromyalgia, GERD/Reflux, Sleep Apnea/CPAP/BIPAP Additional Past Medical History / Comment(s): CVA described as a "silent stroke"in 2020."Prediabetic" and borderline thyroid condition. 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 She has genital HSV type II. History of Any Multi-Drug Resistant Organisms: None Reported Past Surgical History: Cholecystectomy, Orthopedic Surgery, Tubal Ligation Additional Past Surgical History / Comment(s): Neck surgery,dental implants, EGD. Arthroscopic knee surgery. Right breast biopsy. D&C x2. Colonoscopy 2019(next after 5yr) Past Anesthesia/Blood Transfusion Reactions: No Reported Reaction Past Psychological History: Anxiety, Bipolar, Depression, PTSD Smoking Status: Current every day smoker (Just under one pack per day.) Past Alcohol Use History: None Reported Additional Past Alcohol Use History / Comment(s): Trying to quit. Wears a patch. Past Drug Use History: Marijuana Additional Drug Use History / Comment(s): Medical marijuana. She uses marijuana daily in the evening. Additional History: She is single and has been with her boyfriend since 2012. They live together. She does not work outside of the home. - Past Family History Mother Family Medical History: Cancer, Hypertension Additional Family Medical History / Comment(s): Possibly uterine or cervical cancer. Sister(s) Family Medical History: Cancer Additional Family Medical History / Comment(s): Vulvar cancer. Father Family Medical History: Hypertension Medications and Allergies Home Medications Medication Instructions Recorded Confirmed Type Gabapentin [Neurontin] 600 mg PO Q4H 12/14/02/12/21 History Omeprazole [PriLOSEC] 20 mg PO BID 12/14/13 02/12/21 History cloNIDine HCL [Catapres] 0.3 mg PO HS 12/14/13 02/12/21 History Polyethylene Glycol 3350 [Miralax] 51 gm PO DAILY PRN 09/07/17 02/12/21 History Fluticasone Propionate [Flovent 1 puff INHALATION RT-BID 01/17/20 02/12/21 History Hfa 220 mcg] Cetirizine HCl [Zyrtec] 10 mg PO DAILY 03/10/20 02/12/21 History EPINEPHrine (Auto Inject) [Epipen] 0.3 mg IM ONCE PRN #2 pen 03/10/20 02/12/21 Rx Linaclotide [Linzess] 145 mcg PO HS 03/10/20 02/12/21 History Montelukast [Singulair] 10 mg PO HS 03/10/20 02/12/21 History valACYclovir [Valtrex] 500 mg PO QAM PRN 03/10/20 02/12/21 History Melatonin 0 mg PO HS 02/12/21 02/12/21 History Prochlorperazine [Compazine] 5 mg PO Q8HR 02/12/21 02/12/21 History Allergies Allergy/AdvReac Type Severity Reaction Status Date / Time diclofenac [From Voltaren] Allergy Anaphylaxis Verified 02/12/21 08:08 mold Allergy Wheezing Verified 02/12/21 08:08 NSAIDS (Non-Steroidal Allergy Rash/Hives Verified 02/12/21 08:08 Anti-Inflamma sulfamethoxazole Allergy Itching Verified 02/12/21 08:08 [From Bactrim] trimethoprim [From Bactrim] Allergy Itching Verified 02/12/21 08:08 acetaminophen AdvReac Nausea & Verified 02/12/21 08:08 [From Tylenol-Codeine #3] Vomiting aspirin AdvReac Nausea & Verified 02/12/21 08:08 Vomiting codeine phosphate AdvReac Nausea & Verified 02/12/21 08:08 [From Tylenol-Codeine #3] Vomiting Milk Containing Products AdvReac Nausea & Verified 02/12/21 08:08 Vomiting Penicillins AdvReac Rash/Hives Verified 02/12/21 08:08 Exam Vital Signs Temp Pulse Resp BP Pulse Ox 02/12/21 08:12 98.3 F 73 18 102/62 98 Intake and Output 02/11/21 02/12/21 02/12/21 22:59 06:59 14:59 Other: Weight 88.904 kg Height 5 feet 6 inches, weight 196 pounds, BMI 31.6. This is a well-developed well-nourished white female who is alert and oriented times 3 in no acute distress. HEENT: Within normal limits. NECK: Supple without mass or thyromegaly. CHEST AND LUNGS: Clear to auscultation. HEART: Regular rate and rhythm. BREASTS: Are without mass or discharge. There is mild bilateral generalized breast tenderness AXILLARY EXAM: Negative for adenopathy. BACK: Negative for CVA tenderness. ABDOMEN: Soft, nontender, without palpable masses. PELVIC EXAM: Normal external genitalia with mild atrophy. Cervix and vagina appear normal with mild atrophy. There is no unusual discharge. There is no evidence of prolapse. The uterus is midposition, nongravid size and nontender. There are no palpable adnexal masses or tenderness. RECTAL EXAM: Rectovaginal exam is negative for mass or tenderness and is negative for occult blood. EXTREMITIES: Nontender. IMPRESSION: 1. 50-year-old menopausal female with normal gynecologic exam 2. History of recurrent genital HSV outbreaks. 3. Smoker. 4. Multiple medical problems. PLAN: 1. Pap smear was deferred since she had a normal one on 01/17/2020. 2. Self breast awareness was discussed with the patient. We have also discussed symptoms associated with inflammatory breast cancer. 3. Screening mammogram will be done today. 4. Osteoporosis prevention was discussed. I have stressed the importance of adequate calcium, vitamin D and regular exercise. Recommended amounts of calcium and vitamin D were also discussed. 5. Daily valacyclovir 500 mg by mouth daily. I have stressed the importance of taking it every day for to be effective in suppressing HSV outbreaks. The electronic prescription will be sent to [facility] pharmacy. 6. She has not received her Covid vaccination. She states she is going to look into getting this. I have stressed the importance of getting vaccinated since she really does not want to get Covid. 7. I recommended that she works hard to quit smoking. We have discussed many reasons why this is important especially now that she has had a stroke. 8. She was advised to return in one year for her annual well woman exam.
--- NOTE | 2021-02-13 10:36 | MM ---
Reason for exam: screening (asymptomatic). Last mammogram was performed 2 years and 1 month ago. History: Patient is postmenopausal. Family history of breast cancer in maternal aunt at age 60. Benign stereotactic core biopsy of the right breast, January 11, 2002. Physical Findings: A clinical breast exam by your physician is recommended on an annual basis and results should be correlated with mammographic findings. MG 3D Screening Mammo W/Cad Bilateral CC and MLO view(s) were taken. Prior study comparison: January 12, 2019, bilateral MG 3d screening mammo w/cad. March 16, 2018, left breast MG 3d diag mammo w/cad LT. The breast tissue is heterogeneously dense. This may lower the sensitivity of mammography. Diffuse calcifications. There is chronic nodularity in the left breast. No significant changes when compared with prior studies. ASSESSMENT: Benign, BI-RAD 2 RECOMMENDATION: Routine screening mammogram of both breasts in 1 year.
== END ==
LOC: WWCWWP 07:57
PROVIDERS: ATTEND Obstetrics & Gynecology
DX: Z12.31 Encounter for screening mammogram for malignant neoplasm of breast (principal); Z01.419 Encounter for gynecological examination (general) (routine) without abnormal findings; A60.09 Herpesviral infection of other urogenital tract; J45.909 Unspecified asthma, uncomplicated; K21.9 Gastro-esophageal reflux disease without esophagitis; Z86.73 Personal history of transient ischemic attack (TIA), and cerebral infarction without residual deficits; F41.9 Anxiety disorder, unspecified; F31.9 Bipolar disorder, unspecified; F43.10 Post-traumatic stress disorder, unspecified; F17.210 Nicotine dependence, cigarettes, uncomplicated; Z88.0 Allergy status to penicillin; Z88.1 Allergy status to other antibiotic agents; Z88.2 Allergy status to sulfonamides; Z88.5 Allergy status to narcotic agent; Z88.6 Allergy status to analgesic agent; Z80.49 Family history of malignant neoplasm of other genital organs; Z91.011 Allergy to milk products
CPT/HCPCS: 77063; 77067

== ENCOUNTER 2021-03-21 08:45 | Day surgery (SDC) | payer MEDICARE, OTHER ==
[2021-03-21 09:24] VITALS: BP 97/61; PULSE 76; RESP 16; TEMP 97.8
--- NOTE | 2021-03-21 12:13 | US ---
Discontinued fine-needle aspiration HISTORY: R22.1 Localized swelling, mass and lump, neck Exam correlated to CT scan of the neck dated 12/27/2020. Preprocedure ultrasound performed of the right neck. Normal-appearing lymph nodes are present with reniform shape, echogenic cortex, short axis terese surement of 3 mm to 8 mm. Following discussion with the patient, patient elected to defer biopsy at this time. Follow-up clinic [facility].
== END 2021-03-21 10:15 | disposition home or self-care (01) ==
LOC: RADPROMAIN 08:45
PROVIDERS: ATTEND Otolaryngology
DX: R59.0 Localized enlarged lymph nodes (principal); Z53.8 Procedure and treatment not carried out for other reasons
CPT/HCPCS: 76536

== ENCOUNTER → 2021-05-28 | Outpatient (CLI) | payer MEDICARE, OTHER | END | disposition home or self-care (01) | LOC: LABWHC1 10:25 | PROVIDERS: ATTEND Psychiatry & Neurology Pain Medicine | DX: Z51.81 Encounter for therapeutic drug level monitoring (principal) | CPT/HCPCS: 36415; 93005 ==

== ENCOUNTER → 2021-06-25 | Outpatient (CLI) | payer MEDICARE, OTHER ==
[2021-06-25 13:46] VITALS: BP 108/74; PULSE 83; RESP 16; TEMP 98.1
--- NOTE | 2021-06-25 14:22 | P.PN ---
Progress Note - Text Progress Note Date: 06/25/21 Chief Complaint: Vulvar itching and burning for 1 month. HPI: This is a 50-year-old with an LMP of 2018. The patient has noticed vulvar itching and burning for about 1 month. It is noticed mostly on the outer part some of the labia minora and around the clitoris. She denies any sexual activity for more than 2 years. She was prescribed Diflucan by her PCP about 2 or 3 weeks ago and this did not help. She denies vaginal discharge or vaginal odor. She does have a history of genital HSV and has not noticed any outbreaks recently with mild she has been on suppressive therapy. She does not think the vulvar symptoms are related to HSV. She denies any new soaps or detergents. She does not sit in hot tubs. Her PCP checked a urine specimen and she was told this was not a UTI. ROS: She denies fever. She denies respiratory or cardiac problems. GI: History of chronic constipation. PE: Blood pressure: 108/74, Height: 5 feet 6 inches, Weight: 192 pounds, Temperature: 98.1, Pulse: 83. Pulse oximeter 99%. This is a well developed, well nourished, white female who is alert and orientedx3, in no acute distress. External genitalia: There is mild generalized vulvar erythema from the labia minora to the inner aspect of the labia minora bilaterally. There are no focal lesions. There is no significant pallor. Vagina: There is a small amount of thick slightly yellowish discharge without odor. The back of the vagina. The cervix does not appear inflamed. There is no cervical motion tenderness. Bimanual examination reveals a mid positioned, nongravid size uterus is nontender. There are no palpable adnexal masses or tenderness. Impression: 1. 50-year-old menopausal female with 1 month history of vulvar pruritus and burning of the vulva. Mild generalized erythema. Differential diagnosis will include Aspen vaginitis, bacterial vaginosis, and nonspecific dermatitis without infection. At this time it does not seem to be consistent with lichen sclerosus. 2. Slight thick vaginal discharge. Plan: 1. Affirm vaginitis panel was obtained from the vagina. 2. Kenalog 0.1% cream twice a day as needed for vulvar itching. She can also use a small amount of petroleum jelly to the labia as a protective layer. She will not apply this immediately before the Kenalog cream. If you for Kenalog cream was sent to [facility] pharmacy. 3. She will try to avoid over washing with soap, scratching and rubbing. 4. She will return in January 2022 for her annual well woman examination and call if symptoms are not improving. Time spent with the patient: 20 minutes
[2021-06-26 13:20] LABS: Gardnerella Negative (Negative); Source Vagina; Trichomonas Negative (Negative)
== END ==
LOC: WWCWWP 13:15
PROVIDERS: ATTEND Obstetrics & Gynecology
DX: L29.2 Pruritus vulvae (principal); N89.8 Other specified noninflammatory disorders of vagina; F17.200 Nicotine dependence, unspecified, uncomplicated; Z88.6 Allergy status to analgesic agent; Z88.2 Allergy status to sulfonamides; Z88.0 Allergy status to penicillin; Z91.010 Allergy to peanuts; Z91.011 Allergy to milk products; Z88.5 Allergy status to narcotic agent; Z91.09 Other allergy status, other than to drugs and biological substances
CPT/HCPCS: 87480; 87510; 87660

== ENCOUNTER → 2021-09-23 | Outpatient (CLI) | payer MEDICARE, OTHER ==
[2021-09-23 14:23] LABS: Basophils # (A) 0.07 X 10*3/uL (0.00-0.10); Basophils % (A) 0.8 %; Eosinophils # (A) 0.26 X 10*3/uL (0.04-0.35); Eosinophils % (A) 2.8 %; HGB 14.1 g/dL (12.0-15.0); Immature Grans, Automated 0.2 %; Lymphocytes # (A) 2.93 X 10*3/uL (0.90-5.00); MCH 30.6 pg (27.0-32.0); MCHC 32.8 g/dL (32.0-37.0); MCV 93.3 fL (80.0-97.0); Mean Platelet Volume 11.8 fL (9.5-12.2); Monocytes # (A) 0.63 X 10*3/uL (0.20-1.00); Monocytes % (A) 6.9 %; NRBC Per 100 WBC 0 /100 WBCS (0.0-0.0); Neutrophils # (A) 5.25 X 10*3/uL (1.80-7.70); Neutrophils % (A) 57.3 %; Platelet Count 224 X 10*3/uL (140-440); RBC 4.61 X 10*6/uL (4.10-5.20); RDW 12.6 % (11.5-14.5); WBC 9.16 X 10*3/uL (4.50-10.00)
[2021-09-23 16:08] LABS: ALT 35 U/L (8-44); AST 20 U/L (13-35); African American GFR (CKD) 98.2 (60.0-200.0); Albumin 4.6 g/dL (3.8-4.9); Albumin/Globulin Ratio 1.84 (1.60-3.17); Alkaline Phosphatase 109 U/L (41-126); Blood Urea Nitrogen 15.6 mg/dL (9.0-27.0); Carbon Dioxide 17.7 mmol/L (20.0-27.5); Chloride 103 mmol/L (96-109); Chol/HDL Ratio 5.82 Ratio; Globulin 2.5 g/dL (1.6-3.3); Glucose 98 mg/dL (70-110); LDL Cholesterol,Calculated 182.1 mg/dL (0.0-131.0); Magnesium 2.3 mg/dL (1.5-2.4); Non-African American GFR(CKD) 84.8 (60.0-200.0); Potassium 4.4 mmol/L (3.5-5.5); Sodium 140 mmol/L (135-145); Total Protein 7.1 g/dL (6.2-8.2)
== END | disposition home or self-care (01) ==
LOC: LABWHC1 09:11
PROVIDERS: ATTEND Nurse Practitioner Family
DX: E11.9 Type 2 diabetes mellitus without complications (principal); E78.2 Mixed hyperlipidemia; J44.9 Chronic obstructive pulmonary disease, unspecified
CPT/HCPCS: 36415; 80053; 80061; 82306; 82607; 83036; 83735; 84443; 84481; 85025

== ENCOUNTER → 2021-09-30 | Outpatient (CLI) | payer MEDICARE, OTHER | END | disposition home or self-care (01) | LOC: LABWHC1 10:19 | PROVIDERS: ATTEND Psychiatry & Neurology Neurology | DX: Z01.812 Encounter for preprocedural laboratory examination (principal); Z20.822 Contact with and (suspected) exposure to COVID-19 | CPT/HCPCS: U0003; C9803 ==

== ENCOUNTER → 2022-02-18 | Outpatient (CLI) | payer MEDICARE, OTHER ==
[2022-02-18 08:13] VITALS: BP 116/79; PULSE 69; RESP 18; TEMP 98.1
--- NOTE | 2022-02-18 09:04 | P.HPOB ---
History of Present Illness H&P Date: 02/18/22 Chief Complaint: The patient is here for her routine gynecologic exam and ma mmogram. This is a 51-year-old with an LMP of 2018. The patient has multiple complaints. She has been expressing some hot flashes, moodiness, loss of concentration, fatigue, lack of motivation and decreased energy. She also states she has been having multiple genital HSV outbreaks and would like to go back on daily Valtrex. There have been months where she has had more than one outbreak during a single months. She has been expressing bilateral breast pain during the past year. She states it is intermittent and can be bad uncertain days. She states she does not drink caffeinated products and does not eat much chocolate. She does not know why the breast pain is worse at times. She denies any nipple discharge. She has also been experiencing some right pelvic pain that can extends to both sides. The pains are intermittent and are typically sharp. Review of Systems She has lost about 14 pounds and has been on a special diet which she calls a "liver cleanse"and the weight loss has been intentional. Respiratory occasional asthma symptoms cardiac occasional palpitation. She denies GI problems. Past Medical History Past Medical History: Asthma, CVA/TIA, Diabetes Mellitus, Fibromyalgia, GERD/Reflux, Sleep Apnea/CPAP/BIPAP Additional Past Medical History / Comment(s): Type 2 diabetes which is diet controlled. CVA described as a "silent stroke"in 2020."Prediabetic" and borderline thyroid condition. 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 She has genital HSV type II. History of Any Multi-Drug Resistant Organisms: None Reported Past Surgical History: Cholecystectomy, Orthopedic Surgery, Tubal Ligation Additional Past Surgical History / Comment(s): Neck surgery,dental implants, EGD. Arthroscopic knee surgery. Right breast biopsy. D&C x2. Colonoscopy 2019(next after 5yr). Spinal cord stimulator. Past Anesthesia/Blood Transfusion Reactions: No Reported Reaction Past Psychological History: Anxiety, Bipolar, Depression, PTSD Smoking Status: Current every day smoker (Less than one half pack per day and this is less than before.) Past Alcohol Use History: None Reported Additional Past Alcohol Use History / Comment(s): trying to quit... Wears a patch at times. Past Drug Use History: Marijuana Additional Drug Use History / Comment(s): Medical marijuana. She states she no longer smokes marijuana but uses edible marijuana. Additional History: She is single and has been with her boyfriend since 2012. They live together. She does not work outside of the home. - Past Family History Mother Family Medical History: Cancer, Hypertension Additional Family Medical History / Comment(s): Possibly uterine or cervical cancer. Lichen sclerosus of the vulva. Sister(s) Family Medical History: Cancer Additional Family Medical History / Comment(s): Vulvar cancer. Father Family Medical History: Hypertension Medications and Allergies Home Medications Medication Instructions Recorded Confirmed Type Gabapentin [Neurontin] 600 mg PO Q4H 12/14/13 02/18/22 History Omeprazole [PriLOSEC] 20 mg PO BID 12/14/13 02/18/22 History cloNIDine HCL [Catapres] 0.3 mg PO QID 12/14/13 02/18/22 History polyethylene glycoL 3350 [Miralax] 51 gm PO DAILY PRN 09/07/17 02/18/22 History Fluticasone Propionate [Flovent 1 puff INHALATION RT-BID 01/17/20 02/18/22 History Hfa 220 mcg] Cetirizine HCl [Zyrtec] 10 mg PO DAILY 03/10/20 02/18/22 History EPINEPHrine (Auto Inject) [Epipen] 0.3 mg IM ONCE PRN #2 pen 03/10/20 02/18/22 Rx Linaclotide [Linzess] 145 mcg PO HS 03/10/20 02/18/22 History Montelukast [Singulair] 10 mg PO HS 03/10/20 02/18/22 History Melatonin 3 mg PO HS 02/12/21 02/18/22 History Prochlorperazine [Compazine] 10 mg PO Q8HR 02/12/21 02/18/22 History Albuterol Inhaler [Ventolin Hfa 2 puff INHALATION DAILY PRN 03/14/21 02/18/22 History Inhaler] Cholecalciferol (Vitamin D3) 125 mcg PO DAILY 03/14/21 02/18/22 History [Vitamin D3 (125 MCG = 5,000 IU)] Triamcinolone 0.1% Cream [Kenalog 1 applicatio TOPICAL BID PRN #30 gm 06/25/21 02/18/22 Rx 0.1% Cream] valACYclovir HCL [Valtrex] 500 mg PO BID 3 Days #6 tab 12/18/21 02/18/22 Rx Allergies Allergy/AdvReac Type Severity Reaction Status Date / Time diclofenac [From Voltaren] Allergy Anaphylaxis Verified 02/18/22 08:03 mold Allergy Wheezing Verified 02/18/22 08:03 sulfamethoxazole Allergy Itching Verified 02/18/22 08:03 [From Bactrim] trimethoprim [From Bactrim] Allergy Itching Verified 02/18/22 08:03 acetaminophen AdvReac Nausea & Verified 02/18/22 08:03 [From Tylenol-Codeine #3] Vomiting amoxicillin AdvReac Rash/Hives Verified 02/18/22 08:03 aspirin AdvReac Nausea & Verified 02/18/22 08:03 Vomiting codeine phosphate AdvReac Nausea & Verified 02/18/22 08:03 [From Tylenol-Codeine #3] Vomiting Milk Containing Products AdvReac Nausea & Verified 02/18/22 08:03 Vomiting peanut AdvReac Diarrhea Verified 02/18/22 08:03 Penicillins AdvReac Rash/Hives Verified 02/18/22 08:03 Exam Vital Signs Temp Pulse Resp BP Pulse Ox 02/18/22 08:11 98.1 F 69 18 116/79 98 Intake and Output 02/17/22 02/18/22 02/18/22 22:59 06:59 14:59 Other: Weight 80.739 kg Height 5 feet 6 inches, weight 178 pounds, BMI 28.7. This is a well-developed well-nourished white female who is alert and oriented times 3 in no acute distress. HEENT: Within normal limits. NECK: Supple without mass or thyromegaly. CHEST AND LUNGS: Clear to auscultation. HEART: Regular rate and rhythm. BREASTS: Are without mass or discharge. The left nipple has slight central nipple inversion. There is bilateral generalized breast tenderness noted. AXILLARY EXAM: Negative for adenopathy. BACK: Negative for CVA tenderness. ABDOMEN: Soft, without palpable masses. There is mild right lower quadrant tenderness just to the right of the midline without rebound tenderness. PELVIC EXAM: Normal external genitalia with mild atrophy. Cervix and vagina appear normal with mild atrophy. There is no unusual discharge. There is no evidence of prolapse. The uterus is midposition, nongravid size and nontender. There are no palpable adnexal masses. There is mild right adnexal tenderness. RECTAL EXAM: Rectovaginal exam is negative for mass or tenderness and is negative for occult blood. EXTREMITIES: Nontender. IMPRESSION: 1. 51-year-old menopausal female with multiple complaints. 2. Bilateral breast tenderness with variable breast soreness per the patient. 3. Central left nipple inversion. The patient states this is relatively new. 4. Right pelvic discomfort which is intermittent with mild right pelvic tenderness. 5. Vasomotor symptoms along with other nonspecific symptoms such as moodiness, decreased energy and decreased motivation. 6. Frequent genital HSV symptoms. 7. History of stroke in the past. PLAN: 1. Pap smear cotest was performed. 2. Breast awareness was discussed with the patient. 3. Diagnostic mammogram will be done today. 4. Pelvic ultrasound was recommended and the order slip was given to the patient for this. 5. The patient will be restarted on daily Valtrex for a suppression. The electronic prescription will be sent to [place] pharmacy. 6. We have had a long discussion regarding menopausal symptoms. She states she does not want to take antidepressant types of medication because this caused not only stomach problems but worsening of depression and she states in the past she felt suicidal when she took antidepression medications. I do not believe she is a good candidate for hormone replacement therapy because of her history of stroke in 2020. We have discussed the possible increased risk for stroke, heart attack and breast cancer with HRT. We've discussed other conservative measures. I have also stressed the importance of having other medical problems ruled out such as thyroid disorder. She states she will do this through her PCP. 7. She was advised to return in one year for her annual well woman exam and as needed.
--- NOTE | 2022-02-18 09:37 | MM ---
Reason for Exam: Clinical finding. Last screening mammogram was performed 12 month(s) ago. Indicated Problems: Pain of both sides (Global) for 2 Year(s). Patient History: Menarche at age 12. First Full-Term at age 17. Postmenopausal. 01/11/2002, Benign Stereotactic Core Biopsy on the right side. Maternal aunt had breast cancer, age 60. Risk Values: Mirna 5 year model risk: 0.9%. NCI Lifetime model risk: 7.4%. Prior Study Comparison: 06/24/2004 Bilateral Diagnostic Mammogram, [facility]. 07/01/2006 Bilateral Diagnostic Mammogram, [facility]. 10/24/2008 Bilateral Diagnostic Mammogram, [facility]. 04/22/2011 Bilateral Screening Mammogram, [facility]. 05/06/2011 Right Diagnostic Mammogram, [facility]. 09/30/2013 Bilateral Diagnostic Mammogram, [facility]. 03/06/2015 Bilateral Diagnostic Mammogram, [facility]. 09/02/2017 Bilateral Diagnostic Mammogram, [facility]. 03/16/2018 Left Diagnostic Mammogram, [facility]. 01/12/2019 Bilateral Screening Mammogram, [facility]. 02/12/2021 Bilateral Screening Mammogram, [facility]. Tissue Density: The breast tissue is heterogeneously dense. This may lower the sensitivity of mammography. Findings: Analyzed By CAD. Slightly more prominent 12 mm mass within the upper outer left breast 6 cm from the nipple. Benign-appearing calcifications bilaterally. Overall Assessment: Incomplete: need additional imaging evaluation, BI-RAD 0 Management: Diagnostic Breast Ultrasound of the left breast. A clinical breast exam by your physician is recommended on an annual basis and results should be correlated with mammographic findings. This exam should not preclude additional follow-up of suspicious palpable abnormalities. Results were given to the patient verbally at the time of exam. Electronically signed and approved by: Festus Sorto D.O.
--- NOTE | 2022-02-18 09:52 | USB ---
Patient History: Menarche at age 12. First Full-Term at age 17. Postmenopausal. 01/11/2002, Benign Stereotactic Core Biopsy on the right side. Maternal aunt had breast cancer, age 60. Risk Values: Mirna 5 year model risk: 0.9%. NCI Lifetime model risk: 7.4%. Prior Study Comparison: 03/16/2018 Left Diagnostic Mammogram, [facility]. 01/12/2019 Bilateral Screening Mammogram, [facility]. 02/12/2021 Bilateral Screening Mammogram, [facility]. Findings: The upper inner quadrant of the left breast, the axilla of the left breast and the retroareolar of the left breast were scanned. There is a 1.2 x 0.9 x 1.4 cm hypoechoic mass demonstrated within the left breast at 10:00 7 cm from the nipple with somewhat solid appearance and posterior acoustic enhancement. Demonstrates angular margins. No internal vascular flow identified. This appears to be present on multiple prior mammograms. Overall Assessment: Probably benign, BI-RAD 3 Management: Diagnostic Breast Ultrasound of the left breast in 6 months. A clinical breast exam by your physician is recommended on an annual basis and results should be correlated with mammographic findings. Electronically signed and approved by: Festus Sorto D.O.
== END ==
LOC: WWCWWP 07:50
PROVIDERS: ATTEND Obstetrics & Gynecology
DX: Z12.31 Encounter for screening mammogram for malignant neoplasm of breast (principal); Z01.419 Encounter for gynecological examination (general) (routine) without abnormal findings; N95.1 Menopausal and female climacteric states; J45.909 Unspecified asthma, uncomplicated; Z86.73 Personal history of transient ischemic attack (TIA), and cerebral infarction without residual deficits; E11.9 Type 2 diabetes mellitus without complications; F41.9 Anxiety disorder, unspecified; F31.9 Bipolar disorder, unspecified; F43.10 Post-traumatic stress disorder, unspecified; F17.200 Nicotine dependence, unspecified, uncomplicated; Z88.6 Allergy status to analgesic agent; Z88.1 Allergy status to other antibiotic agents; Z91.010 Allergy to peanuts; Z91.011 Allergy to milk products; Z91.09 Other allergy status, other than to drugs and biological substances; Z88.5 Allergy status to narcotic agent
CPT/HCPCS: 77066; 76642; G0279; 77062

== ENCOUNTER → 2022-06-12 | Outpatient (CLI) | payer MEDICARE, OTHER | END | disposition home or self-care (01) | LOC: LABWHC1 09:57 | PROVIDERS: ATTEND Nurse Practitioner Family | DX: Z01.812 Encounter for preprocedural laboratory examination (principal) | CPT/HCPCS: 36415; 93005 ==

== ENCOUNTER → 2022-09-08 | Outpatient (CLI) | payer MEDICARE, OTHER ==
--- NOTE | 2022-09-08 15:04 | USB ---
Reason for Exam: Follow-up at short interval from prior study. Patient History: Menarche at age 12. First Full-Term at age 17. Postmenopausal. 01/11/2002, Benign Stereotactic Core Biopsy on the right side. Maternal aunt had breast cancer, age 60. Risk Values: Mirna 5 year model risk: 0.9%. NCI Lifetime model risk: 7.3%. Technique: Method: Targeted. Prior Study Comparison: 01/12/2019 Bilateral Screening Mammogram, [facility]. 02/12/2021 Bilateral Screening Mammogram, [facility]. 02/18/2022 Bilateral MG 3D diag mammo w/cad JIMMIE, [facility]. Findings: The upper inner quadrant of the left breast, the axilla of the left breast and the retroareolar of the left breast were scanned. Targeted ultrasound left breast shows 1.5 x 0.8 x 1.7 cm heterogeneous lobulated hypoechoic area at 10:00 position 7 cm distance from nipple without vascularity with slight shadowing similar appearance to prior. Benign-appearing lymph node in the left axilla is redemonstrated. There is tiny 5 x 2 mm thin-walled cyst 9:00 position 6 cm distance from nipple seen on current study. Overall Assessment: Benign, BI-RAD 2 Management: Screening Mammogram of both breasts in 6 months. Back on schedule. Results were given to the patient verbally at the time of exam. Electronically signed and approved by: Earnest Hernandez M.D.
== END | disposition home or self-care (01) ==
LOC: RADUSWWP 14:20
PROVIDERS: ATTEND Obstetrics & Gynecology
DX: R92.8 Other abnormal and inconclusive findings on diagnostic imaging of breast (principal); Z78.0 Asymptomatic menopausal state; Z80.3 Family history of malignant neoplasm of breast

== ENCOUNTER → 2022-10-02 | Outpatient (CLI) | payer MEDICARE, OTHER ==
--- NOTE | 2022-10-03 07:22 | XR ---
EXAMINATION TYPE: XR KUB DATE OF EXAM: 10/02/2022 8:48 AM INDICATION: Patient age:Female; 52 years old; Reason for study: IRRITABLE BOWEL SYNDROME; COMPARISON: 06/23/2013 TECHNIQUE: One radiographic view of the abdomen was obtained. FINDINGS: Electronic device with leads terminating out of the [id number] superiorly. Right upper q uadrant cholecystectomy clips. Moderate stool burden throughout the colon. The bowel gas pattern is n onspecific without dilated loops of small or large bowel. There is no evidence for organomegaly or pn eumoperitoneum. The osseous structures are intact. No abnormal calcifications are present. Fecal ma terial and gas are demonstrated throughout the colon and rectum. IMPRESSION: 1. Nonspecific bowel gas pattern without radiographic evidence for acute process. 2. Moderate stool burden throughout the colon.
== END | disposition home or self-care (01) ==
LOC: RADFLMAIN 07:57
PROVIDERS: ATTEND Internal Medicine Gastroenterology
DX: K58.9 Irritable bowel syndrome, unspecified (principal)
CPT/HCPCS: 74018

== ENCOUNTER → 2022-11-05 | Outpatient (CLI) | payer MEDICARE, OTHER ==
[2022-11-05 09:38] VITALS: BP 105/72; PULSE 65; RESP 12; TEMP 98.5
--- NOTE | 2022-11-05 10:33 | P.HPOB ---
History of Present Illness H&P Date: 11/05/22 Chief Complaint: The patient is here for her routine gynecologic exam. This is a 52-year-old with an LMP of 2018. The patient continues to have occasional vulvar dryness and pruritus. She states the Kenalog cream has been helpful and is requesting another prescription for this. She has had decreased HSV outbreaks while on daily Valtrex. She states she occasionally forgets to take it. She is otherwise without gynecologic complaints. Review of Systems She has lost about 24 pounds over the past year and this has been intentional. She denies respiratory or cardiac problems. GI: Occasional constipation. Past Medical History Past Medical History: Asthma, CVA/TIA, Diabetes Mellitus, Fibromyalgia, GERD/Reflux, Hyperlipidemia, Sleep Apnea/CPAP/BIPAP Additional Past Medical History / Comment(s): Type 2 diabetes which is diet controlled. CVA described as a "silent stroke"in 2020.Borderline thyroid condition. 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 She has genital HSV type II. History of Any Multi-Drug Resistant Organisms: None Reported Past Surgical History: Cholecystectomy, Orthopedic Surgery, Tubal Ligation Additional Past Surgical History / Comment(s): Neck surgery,dental implants, EGD. Arthroscopic knee surgery. Right breast biopsy. D&C x2. Colonoscopy 2019(next after 5yr). Spinal cord stimulator. Past Anesthesia/Blood Transfusion Reactions: No Reported Reaction Past Psychological History: Anxiety, Bipolar, Depression, PTSD Smoking Status: Current every day smoker (Half a pack per day) Past Alcohol Use History: None Reported Additional Past Alcohol Use History / Comment(s): trying to quit... Wears a patch at times. Past Drug Use History: Marijuana (Infrequently smokes marijuana.) Additional Drug Use History / Comment(s): Medical marijuana. She states she no longer smokes marijuana but uses edible marijuana. Additional History: She is single and has been with her boyfriend since 2013. They live together. She is disabled. - Past Family History Mother Family Medical History: Cancer, Hypertension Additional Family Medical History / Comment(s): Possibly uterine or cervical cancer. Lichen sclerosus of the vulva. Sister(s) Family Medical History: Cancer Additional Family Medical History / Comment(s): Vulvar cancer. Father Family Medical History: Hypertension Medications and Allergies Home Medications Medication Instructions Recorded Confirmed Type Gabapentin [Neurontin] 600 mg PO Q4H 12/14/13 11/05/22 History cloNIDine HCL [Catapres] 0.3 mg PO QID 12/14/13 11/05/22 History polyethylene glycoL 3350 [Miralax] 51 gm PO DAILY PRN 09/07/17 11/05/22 History Fluticasone Propionate [Flovent 1 puff INHALATION RT-BID 01/17/20 11/05/22 History Hfa 220 mcg] Cetirizine HCl [Zyrtec] 10 mg PO DAILY 03/10/20 11/05/22 History EPINEPHrine (Auto Inject) [Epipen] 0.3 mg IM ONCE PRN #2 pen 03/10/20 11/05/22 Rx Linaclotide [Linzess] 145 mcg PO HS 03/10/20 11/05/22 History Montelukast [Singulair] 10 mg PO HS 03/10/20 11/05/22 History Melatonin 3 mg PO HS 02/12/21 11/05/22 History Prochlorperazine [Compazine] 10 mg PO Q8HR 02/12/21 11/05/22 History Albuterol Inhaler [Ventolin Hfa 2 puff INHALATION DAILY PRN 03/14/21 02/18/22 History Inhaler] Cholecalciferol (Vitamin D3) 125 mcg PO DAILY 03/14/21 11/05/22 History [Vitamin D3 (125 MCG = 5,000 IU)] Triamcinolone 0.1% Cream [Kenalog 1 applicatio TOPICAL BID PRN #30 gm 06/25/21 11/05/22 Rx 0.1% Cream] valACYclovir HCL [Valtrex] 500 mg PO DAILY #90 tab 02/18/22 11/05/22 Rx Esomeprazole Magnesium [NexIUM] 20 mg PO BID 11/05/22 11/05/22 History Allergies Allergy/AdvReac Type Severity Reaction Status Date / Time diclofenac [From Voltaren] Allergy Anaphylaxis Verified 11/05/22 09:29 mold Allergy Wheezing Verified 11/05/22 09:29 sulfamethoxazole Allergy Itching Verified 11/05/22 09:29 [From Bactrim] trimethoprim [From Bactrim] Allergy Itching Verified 11/05/22 09:29 acetaminophen AdvReac Nausea & Verified 11/05/22 09:29 [From Tylenol-Codeine #3] Vomiting amoxicillin AdvReac Rash/Hives Verified 11/05/22 09:29 aspirin AdvReac Nausea & Verified 11/05/22 09:29 Vomiting codeine phosphate AdvReac Nausea & Verified 11/05/22 09:29 [From Tylenol-Codeine #3] Vomiting Milk Containing Products AdvReac Nausea & Verified 11/05/22 09:29 Vomiting peanut AdvReac Diarrhea Verified 11/05/22 09:29 Penicillins AdvReac Rash/Hives Verified 11/05/22 09:29 Exam Vital Signs Temp Pulse Resp BP Pulse Ox 11/05/22 09:34 98.5 F 65 12 105/72 98 Intake and Output 11/04/22 11/05/22 11/05/22 22:59 06:59 14:59 Other: Weight 69.853 kg Height 5 feet 6 inches, weight 154 pounds, BMI 24.9. This is a well-developed well-nourished white female who is alert and oriented times 3 in no acute distress. HEENT: Within normal limits. NECK: Supple without mass or thyromegaly. CHEST AND LUNGS: Clear to auscultation. HEART: Regular rate and rhythm. BREASTS: Are without mass or discharge. AXILLARY EXAM: Negative for adenopathy. BACK: Negative for CVA tenderness. ABDOMEN: Soft, nontender, without palpable masses. PELVIC EXAM: External genitalia reveals mild atrophy with generalized erythema extending from the vulva to the perineum. There are no focal lesions and no evidence of pallor. There is no excoriation. Cervix and vagina appear normal mild atrophy. There is no unusual discharge. There is no evidence of prolapse. The uterus is midposition, nongravid size and nontender. There are no palpable adnexal masses or tenderness. RECTAL EXAM: Rectovaginal exam is negative for mass or tenderness and is negative for occult blood. EXTREMITIES: Nontender. IMPRESSION: 1. 52-year-old menopausal female with mild generalized vulvar and perineal erythema without unusual vaginal discharge. Nonspecific vulvitis with symptoms improved with Kenalog cream. 2. History of recurrent genital HSV improved with daily suppressive Valtrex. 3. History of osteopenia. PLAN: 1. Pap smear was deferred since she had a negative Pap smear cotest on 02/18/2022. 2. Self breast awareness was discussed with the patient. We have also discusse d symptoms associated with inflammatory breast cancer. 3. Bilateral screening mammogram will be due in February. The order slip was given to the patient for this. 4. Osteoporosis prevention was discussed. I have stressed the importance of adequate calcium, vitamin D and regular exercise. Recommended amounts of calcium and vitamin D were also discussed. Bone density test was recently done on 08/14/2022 showing osteopenia. 5. Continue Valtrex 500 mg by mouth daily. The electronic prescription will be sent to [facility] pharmacy. 6. Kenalog 0.1% cream twice a day as needed for vulvar pruritus. The electronic prescription will be sent to [facility] pharmacy. She was also instructed to avoid over washing and scratching. She can also use a small amount of a and D ointment as a protective layer. 7. She was advised to return in one year for her annual well woman exam and as needed.
== END ==
LOC: WWCWWP 09:11
PROVIDERS: ATTEND Obstetrics & Gynecology
DX: Z01.419 Encounter for gynecological examination (general) (routine) without abnormal findings (principal); Z78.0 Asymptomatic menopausal state; M85.80 Other specified disorders of bone density and structure, unspecified site; A60.00 Herpesviral infection of urogenital system, unspecified; J45.909 Unspecified asthma, uncomplicated; Z86.73 Personal history of transient ischemic attack (TIA), and cerebral infarction without residual deficits; E11.9 Type 2 diabetes mellitus without complications; M79.7 Fibromyalgia; K21.9 Gastro-esophageal reflux disease without esophagitis; E78.5 Hyperlipidemia, unspecified; F17.210 Nicotine dependence, cigarettes, uncomplicated; Z91.048 Other nonmedicinal substance allergy status; Z88.2 Allergy status to sulfonamides; Z88.0 Allergy status to penicillin; Z88.8 Allergy status to other drugs, medicaments and biological substances; Z91.010 Allergy to peanuts; Z91.011 Allergy to milk products

== ENCOUNTER → 2022-11-14 | Outpatient (CLI) | payer MEDICARE, OTHER ==
[2022-11-14 16:10] LABS: C Reactive Protein <0.30 mg/dL (0.00-0.80); Rheumatoid Factor, Qnt <10 IU/mL (0-15)
== END | disposition home or self-care (01) ==
LOC: LABWHC1 09:46
PROVIDERS: ATTEND Nurse Practitioner Family
DX: M25.50 Pain in unspecified joint (principal); R76.0 Raised antibody titer
CPT/HCPCS: 36415; 85652; 86038; 86140; 86431

== ENCOUNTER 2022-11-18 09:08 | Emergency (ER) | payer MEDICARE, OTHER ==
[2022-11-18] MEDS ORDERED: IPRATROPIUM-ALBUTEROL 3 ML NEB INHALATION STA (09:42)
[2022-11-18 09:57] VITALS: RESP 20
--- NOTE | 2022-11-18 10:02 | XR ---
EXAMINATION TYPE: XR chest 2V DATE OF EXAM: 11/18/2022 9:57 AM COMPARISON: Chest radiographs from 03/30/2019 TECHNIQUE: XR chest 2V Frontal and lateral views of the chest. CLINICAL INDICATION:Female, 52 years old with history of sob; FINDINGS: Lungs/Pleura: There is no evidence of pleural effusion, focal consolidation, or pneumothorax. Pulmonary vascularity: Unremarkable. Heart/mediastinum: Cardiomediastinal silhouette is unremarkable. Musculoskeletal: No acute osseous pathology. There is fixation hardware in the lower cervical spine. Right upper quadrant cholecystectomy clips. Other findings: Nerve, stimulator leads project over the spine. IMPRESSION: No acute cardiopulmonary disease/process.
--- NOTE | 2022-11-18 10:50 | ED ---
URI HPI - General Chief Complaint: Upper Respiratory Infection Stated Complaint: Congestion/Cough Time Seen by Provider: 11/18/22 09:18 Source: patient, RN notes reviewed Mode of arrival: ambulatory Limitations: no limitations - History of Present Illness Initial Comments: 52-year-old female presents emergency Department with chief complaint of cough and cold-like symptoms. Patient states she's been sick for last 5-6 days. Patient states she noticed increasing wheezing with her asthma. Patient is productive cough and sore throat. Patient states she was around some contacts with some her symptoms. Denies any chest pain denies any abdominal pain she did have some GI symptoms initially. - Related Data Home Medications Medication Instructions Recorded Confirmed Gabapentin [Neurontin] 600 mg PO Q4H 12/14/13 11/05/22 cloNIDine HCL [Catapres] 0.3 mg PO QID 12/14/13 11/05/22 polyethylene glycoL 3350 [Miralax] 51 gm PO DAILY PRN 09/07/17 11/05/22 Fluticasone Propionate [Flovent 1 puff INHALATION RT-BID 01/17/20 11/05/22 Hfa 220 mcg] Cetirizine HCl [Zyrtec] 10 mg PO DAILY 03/10/20 11/05/22 Linaclotide [Linzess] 145 mcg PO HS 03/10/20 11/05/22 Montelukast [Singulair] 10 mg PO HS 03/10/20 11/05/22 Melatonin 3 mg PO HS 02/12/21 11/05/22 Prochlorperazine [Compazine] 10 mg PO Q8HR 02/12/21 11/05/22 Albuterol Inhaler [Ventolin Hfa 2 puff INHALATION DAILY PRN 03/14/21 02/18/22 Inhaler] Cholecalciferol (Vitamin D3) 125 mcg PO DAILY 03/14/21 11/05/22 [Vitamin D3 (125 MCG = 5,000 IU)] Esomeprazole Magnesium [NexIUM] 20 mg PO BID 11/05/22 11/05/22 Previous Rx's Medication Instructions Recorded EPINEPHrine (Auto Inject) [Epipen] 0.3 mg IM ONCE PRN #2 pen 03/10/20 Triamcinolone 0.1% Cream [Kenalog 1 applicatio TOPICAL BID PRN #30 gm 11/05/22 0.1% Cream] valACYclovir HCL [Valtrex] 500 mg PO DAILY #90 tab 11/05/22 Azithromycin [Zithromax Z Pack] 0 tab PO DIRECTED #6 tab 11/18/22 predniSONE 50 mg PO DAILY #5 tab 11/18/22 Allergies Allergy/AdvReac Type Severity Reaction Status Date / Time diclofenac [From Voltaren] Allergy Anaphylaxis Verified 11/18/22 09:15 mold Allergy Wheezing Verified 11/18/22 09:15 sulfamethoxazole Allergy Itching Verified 11/18/22 09:15 [From Bactrim] trimethoprim [From Bactrim] Allergy Itching Verified 11/18/22 09:15 acetaminophen AdvReac Nausea & Verified 11/18/22 09:15 [From Tylenol-Codeine #3] Vomiting amoxicillin AdvReac Rash/Hives Verified 11/18/22 09:15 aspirin AdvReac Nausea & Verified 11/18/22 09:15 Vomiting codeine phosphate AdvReac Nausea & Verified 11/18/22 09:15 [From Tylenol-Codeine #3] Vomiting Milk Containing Products AdvReac Nausea & Verified 11/18/22 09:15 Vomiting peanut AdvReac Diarrhea Verified 11/18/22 09:15 Penicillins AdvReac Rash/Hives Verified 11/18/22 09:15 Review of Systems ROS Statement: Those systems with pertinent positive or pertinent negative responses have been documented in the HPI. ROS Other: All systems not noted in ROS Statement are negative. Past Medical History Past Medical History: Asthma, CVA/TIA, Diabetes Mellitus, Fibromyalgia, GERD/ Reflux, Hyperlipidemia, Sleep Apnea/CPAP/BIPAP Additional Past Medical History / Comment(s): Type 2 diabetes which is diet controlled. CVA described as a "silent stroke"in 2020.Borderline thyroid condition. 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 She has genital HSV type II. History of Any Multi-Drug Resistant Organisms: None Reported Past Surgical History: Cholecystectomy, Orthopedic Surgery, Tubal Ligation Additional Past Surgical History / Comment(s): Neck surgery,dental implants, EGD. Arthroscopic knee surgery. Right breast biopsy. D&C x2. Colonoscopy 2019(next after 5yr). Spinal cord stimulator. Past Anesthesia/Blood Transfusion Reactions: No Reported Reaction Past Psychological History: Anxiety, Bipolar, Depression, PTSD Smoking Status: Current every day smoker Past Alcohol Use History: None Reported Past Drug Use History: Marijuana - Past Family History Mother Family Medical History: Cancer, Hypertension Additional Family Medical History / Comment(s): Possibly uterine or cervical cancer. Lichen sclerosus of the vulva. Sister(s) Family Medical History: Cancer Additional Family Medical History / Comment(s): Vulvar cancer. Father Family Medical History: Hypertension General Exam Limitations: no limitations General appearance: alert, in no apparent distress Head exam: Present: atraumatic, normocephalic, normal inspection Eye exam: Present: normal appearance, PERRL, EOMI. Absent: scleral icterus, conjunctival injection, periorbital swelling ENT exam: Present: normal exam, normal oropharynx, mucous membranes moist Neck exam: Present: normal inspection, full ROM. Absent: tenderness, meningismus, lymphadenopathy Respiratory exam: Present: wheezes, rhonchi. Absent: normal lung sounds bilaterally, respiratory distress, rales, stridor Cardiovascular Exam: Present: regular rate, normal rhythm, normal heart sounds. Absent: systolic murmur, diastolic murmur, rubs, gallop, clicks Course Vital Signs 11/18/22 11/18/22 11/18/22 09:11 09:15 10:22 Temperature 98.0 F Pulse Rate 84 84 Respiratory 18 20 Rate Blood Pressure 114/69 O2 Sat by Pulse 97 Oximetry 11/18/22 10:40 Temperature Pulse Rate 84 Respiratory Rate Blood Pressure O2 Sat by Pulse Oximetry Medical Decision Making - Medical Decision Making Was pt. sent in by a medical professional or institution (, PA, ARMOR OFFICER, urgent care, hospital, or fpc...) When possible be specific @ -No Did you speak to anyone other than the patient for history (EMS, parent, family, police, friend...)? What history was obtained from this source @ -No Did you review nursing and triage notes (agree or disagree)? Why? @ -I reviewed and agree with nursing and triage notes Were old charts reviewed (outside hosp., previous admission, EMS record, old EKG, old radiological studies, urgent care reports/EKG's, fpc records)? Report findings @ -No old charts were reviewed Differential Diagnosis (chest pain, altered mental status, abdominal pain women, abdominal pain men, vaginal bleeding, weakness, fever, dyspnea, syncope, headache, dizziness, GI bleed, back pain, seizure, CVA, palpatations, mental health, musculoskeletal)? @ -nDifferential Dyspnea: Coronary syndrome, arrhythmia, tamponade, asthma, COPD, pulmonary embolism, pneumonia, pneumothorax, pulmonary effusion, anaphylaxis, diabetic ketoacidosis, flailed chest, pulmonary contusion, diaphragmatic rupture, anemia, neuromuscular, this is not meant to be an all-inclusive list. able EKG interpreted by me (3pts min.). @ -None X-rays interpreted by me (1pt min.). @ -Chest x-ray shows no acute cardiopulmonary process, no infiltrate CT interpreted by me (1pt min.). @ -None done U/S interpreted by me (1pt. min.). @ -None done What testing was considered but not performed or refused? (CT, X-rays, U/S, labs)? Why? @ -None What meds were considered but not given or refused? Why? @ -None Did you discuss the management of the patient with other professionals (professionals i.e. , PA, ARMOR OFFICER, lab, RT, psych nurse, social media analyst, laborer poultry hatchery, teacher, radiation officer, patient case manager)? Give summary @ -No Was smoking cessation discussed for >3mins.? @ -No Was critical care preformed (if so, how long)? @ -No Were there social determinants of health that impacted care today? How? (Homelessness, low income, unemployed, alcoholism, drug addiction, transportation, low edu. Level, literacy, decrease access to med. care, long term, rehab)? @ -No Was there de-escalation of care discussed even if they declined (Discuss DNR or withdrawal of care, Hospice)? DNR status @ -No What co-morbidities impacted this encounter? (DM, HTN, Smoking, COPD, CAD, Cancer, CVA, ARF, Chemo, Hep., AIDS, mental health diagnosis, sleep apnea, morbid obesity)? @ -Asthma Was patient admitted / discharged? Hospital course, mention meds given and route, prescriptions, significant lab abnormalities, going to OR and other pertinent info. @ -Discharged patient had 2 DuoNeb treatments, steroid status has improved, chest x-ray does not show definite infiltrate though patient has diffuse wheezing, rhonchi patient was started on present, azithromycin will continue breathing treatments at home and return for any worsening change symptoms. Undiagnosed new problem with uncertain prognosis? @ -No Drug Therapy requiring intensive monitoring for toxicity (Heparin, Nitro, Insulin, Cardizem)? @ -No Were any procedures done? @ -No Diagnosis/symptom? @ -Asthmatic bronchitis Acute, or Chronic, or Acute on Chronic? @ -Acute] Uncomplicated (without systemic symptoms) or Complicated (systemic symptoms)? @ -[Uncomplicated] Side effects of treatment? @ -[No] Exacerbation, Progression, or Severe Exacerbation? @ -[No] Poses a threat to life or bodily function? How? (Chest pain, [place], [place], pneumonia, PE, COPD, DKA, ARF, appy, cholecystitis, CVA, Diverticulitis, Homicidal, Suicidal, threat to staff... and all critical care pts) @ -[No] - Lab Data Lab Results 11/18/22 Range/Units 09:36 Coronavirus (PCR) Not Detected (Not Detectd) Disposition Clinical Impression: Asthmatic bronchitis Disposition: HOME SELF-CARE Condition: Stable Instructions (If sedation given, give patient instructions): Upper Respiratory Infection (ED) Additional Instructions: Please return to the Emergency Department if symptoms worsen or any other concerns. Prescriptions: predniSONE 50 mg PO DAILY #5 tab Azithromycin [Zithromax Z Pack] 0 tab PO DIRECTED #6 tab Is patient prescribed a controlled substance at d/c from ED?: No Referrals: [facility] [Primary Care Provider] - 1-2 days Time of Disposition: 10:49
[2022-11-18 10:56] VITALS: BP 120/68; PULSE 78; TEMP 98.1
== END 2022-11-18 10:56 | disposition home or self-care (01) ==
LOC: EC 09:08
DX: J45.909 Unspecified asthma, uncomplicated (principal); E11.9 Type 2 diabetes mellitus without complications; E78.5 Hyperlipidemia, unspecified; K21.9 Gastro-esophageal reflux disease without esophagitis; F31.9 Bipolar disorder, unspecified; F41.9 Anxiety disorder, unspecified; F17.200 Nicotine dependence, unspecified, uncomplicated; F12.90 Cannabis use, unspecified, uncomplicated; Z20.822 Contact with and (suspected) exposure to COVID-19; Z79.51 Long term (current) use of inhaled steroids; Z79.899 Other long term (current) drug therapy; Z88.0 Allergy status to penicillin; Z88.1 Allergy status to other antibiotic agents; Z88.2 Allergy status to sulfonamides; Z88.6 Allergy status to analgesic agent; Z91.010 Allergy to peanuts; Z91.011 Allergy to milk products; Z86.73 Personal history of transient ischemic attack (TIA), and cerebral infarction without residual deficits
CPT/HCPCS: 71046; 87635; 94640; 99284

== ENCOUNTER → 2023-06-09 | Outpatient (CLI) | payer MEDICARE, OTHER ==
--- NOTE | 2023-06-09 13:30 | US ---
EXAMINATION TYPE: US abdomen complete DATE OF EXAM: 06/09/2023 COMPARISON: NONE CLINICAL INDICATION: Female, 52 years old with history of R10.9 Unspecified abdominal pain; RUQ x yea rs, worsening over the last year. Nausea. Constipation. TECHNIQUE: Multiple sonographic images of the abdomen are obtained. FINDINGS: EXAM MEASUREMENTS: Liver Length: 15.0 cm Gallbladder: Surgically absent CBD: 0.3 cm Spleen: 8.3 cm Right Kidney: 10.5 x 4.1 x 5.5 cm Left Kidney: 9.6 x 6.1 x 4.7 cm Pancreas: wnl Liver: wnl Gallbladder: Surgically absent Evidence for sonographic Biggs's sign: NA CBD: wnl Spleen: wnl Right Kidney: wnl Left Kidney: wnl Upper IVC: wnl Abd Aorta: wnl IMPRESSION: Status post cholecystectomy. Otherwise, unremarkable sonographic examination of the abdomen.
--- NOTE | 2023-06-09 13:30 | US ---
EXAMINATION TYPE: US pelvic complete DATE OF EXAM: 06/09/2023 COMPARISON: NONE CLINICAL INDICATION: Female, 52 years old with history of R10.9 Unspecified abdominal pain; RUQ pain x years, worsening over last year. TECHNIQUE: Transabdominal sonographic images of the pelvis were acquired. Date of LMP: 4 years ago EXAM MEASUREMENTS: Uterus: 5.4 x 2.3 x 3.7 cm Endometrial Stripe: 0.2 cm Right Ovary: 1.3 x 1.4 x 1.3 cm Left Ovary: 1.2 x 0.8 x 1.0 cm 1. Uterus: Anteverted and otherwise wnl 2. Endometrium: wnl 3. Right Ovary: wnl 4. Left Ovary: wnl 5. Bilateral Adnexa: wnl 6. Posterior cul-de-sac: wnl IMPRESSION: Thin endometrial stripe estimated at 2 mm. No specific abnormality identified by transabd ominal scanning.
[2023-06-09 16:05] LABS: ALT 16 U/L (8-44); AST 23 U/L (13-35); Albumin 4.1 g/dL (3.8-4.9); Albumin/Globulin Ratio 1.71 Ratio (1.60-3.17); Alkaline Phosphatase 83 U/L (41-126); BUN/Creat Ratio 18.43 Ratio (12.00-20.00); Blood Urea Nitrogen 12.9 mg/dL (9.0-27.0); Calcium 9.4 mg/dL (8.7-10.3); Carbon Dioxide 21.3 mmol/L (21.6-31.8); Chloride 104 mmol/L (96-109); Globulin 2.4 g/dL (1.6-3.3); Glucose 81 mg/dL (70-110); Potassium 4.3 mmol/L (3.5-5.5); Sodium 138 mmol/L (135-145); Total Bilirubin 0.4 mg/dL (0.3-1.2); Total Protein 6.5 g/dL (6.2-8.2)
== END | disposition home or self-care (01) ==
LOC: RADUSWWP 07:03
PROVIDERS: ATTEND Internal Medicine Gastroenterology
DX: K59.00 Constipation, unspecified (principal); R11.0 Nausea; Z90.49 Acquired absence of other specified parts of digestive tract
CPT/HCPCS: 76700; 76856; 80053

== ENCOUNTER 2023-10-14 20:19 | Emergency (ER) | payer MEDICARE, OTHER ==
--- NOTE | 2023-10-14 21:22 | ED ---
Abdominal Pain HPI - General Source: patient, RN notes reviewed Mode of arrival: EMS Limitations: no limitations <Mariana Dielh - Last Filed: 10/14/23 21:21> <Gustavo Loredo - Last Filed: 10/15/23 03:05> - General Chief Complaint: Abdominal Pain Stated Complaint: abd pain Time Seen by Provider: 10/14/23 21:21 - History of Present Illness Initial Comments: Quick [id number] female presenting with abdominal pain x 1 day. States she is currently taking bowel prep for a colonoscopy scheduled for tomorrow but is concerned because she is feeling bloated and feels her "intestines are cramping up". (Mariana Diehl) - Related Data Home Medications Medication Instructions Recorded Confirmed Gabapentin [Neurontin] 600 mg PO Q4H 12/14/13 10/13/23 cloNIDine HCL [Catapres] 0.3 mg PO QID 12/14/13 10/13/23 polyethylene glycoL 3350 [Miralax] 51 gm PO DAILY PRN 09/07/17 10/13/23 Fluticasone Propionate [Flovent 1 puff INHALATION RT-BID 01/17/20 10/13/23 Hfa 220 mcg] Cetirizine HCl [Zyrtec] 10 mg PO DAILY 03/10/20 10/13/23 Linaclotide [Linzess] 145 mcg PO HS 03/10/20 10/13/23 Montelukast [Singulair] 10 mg PO HS 03/10/20 10/13/23 Melatonin 3 mg PO HS 02/12/21 10/13/23 Prochlorperazine [Compazine] 10 mg PO Q8HR 02/12/21 10/13/23 Albuterol Inhaler [Ventolin Hfa 2 puff INHALATION DAILY PRN 03/14/21 10/13/23 Inhaler] Cholecalciferol (Vitamin D3) 125 mcg PO DAILY 03/14/21 10/13/23 [Vitamin D3 (125 MCG = 5,000 IU)] Esomeprazole Magnesium [NexIUM] 20 mg PO BID 11/05/22 10/13/23 Previous Rx's Medication Instructions Recorded EPINEPHrine (Auto Inject) [Epipen] 0.3 mg IM ONCE PRN #2 pen 03/10/20 Triamcinolone 0.1% Cream [Kenalog 1 applicatio TOPICAL BID PRN #30 gm 11/05/22 0.1% Cream] valACYclovir HCL [Valtrex] 500 mg PO DAILY #90 tab 11/05/22 Allergies Allergy/AdvReac Type Severity Reaction Status Date / Time diclofenac [From Voltaren] Allergy Anaphylaxis Verified 10/14/23 20:51 mold Allergy Wheezing Verified 10/14/23 20:51 sulfamethoxazole Allergy Itching Verified 10/14/23 20:51 [From Bactrim] trimethoprim [From Bactrim] Allergy Itching Verified 10/14/23 20:51 acetaminophen AdvReac Nausea & Verified 10/14/23 20:51 [From Tylenol-Codeine #3] Vomiting amoxicillin AdvReac Rash/Hives Verified 10/14/23 20:51 aspirin AdvReac Nausea & Verified 10/14/23 20:51 Vomiting codeine phosphate AdvReac Nausea & Verified 10/14/23 20:51 [From Tylenol-Codeine #3] Vomiting Milk Containing Products AdvReac Nausea & Verified 10/14/23 20:51 (Dairy) Vomiting [Milk Containing Products] peanut AdvReac Diarrhea Verified 10/14/23 20:51 Penicillins AdvReac Rash/Hives Verified 10/14/23 20:51 Review of Systems ROS Other: All systems not noted in ROS Statement are negative. <Mariana Diehl - Last Filed: 10/14/23 21:21> ROS Other: All systems not noted in ROS Statement are negative. <Gustavo Loredo - Last Filed: 10/15/23 03:05> ROS Statement: Those systems with pertinent positive or pertinent negative responses have been documented in the HPI. Past Medical History Past Medical History: Asthma, CVA/TIA, Fibromyalgia, GERD/Reflux, Hyperlipidemia, Sleep Apnea/CPAP/BIPAP Additional Past Medical History / Comment(s): CVA described as a "silent stroke"in 2020.Borderline thyroid condition. 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 She has genital HSV type II. cpap uses, cataracts History of Any Multi-Drug Resistant Organisms: None Reported Past Surgical History: Breast Surgery, Cholecystectomy, Orthopedic Surgery, Tubal Ligation Additional Past Surgical History / Comment(s): Neck surgery,dental implants, EGD. Arthroscopic knee surgery. Right breast biopsy. D&C x2. Colonoscopy 2019(next after 5yr). Spinal cord stimulator. Past Anesthesia/Blood Transfusion Reactions: No Reported Reaction Additional Past Anesthesia/Blood Transfusion Reaction / Comment(s): no blood transfusion. has had iron infusions no reaction Past Psychological History: Anxiety, Bipolar, Depression, PTSD Smoking Status: Current every day smoker Past Alcohol Use History: None Reported Past Drug Use History: Marijuana - Past Family History Mother Family Medical History: Cancer, Hypertension Additional Family Medical History / Comment(s): Possibly uterine or cervical cancer. Lichen sclerosus of the vulva. Sister(s) Family Medical History: Cancer Additional Family Medical History / Comment(s): Vulvar cancer. Father Family Medical History: Hypertension <Mariana Diehl - Last Filed: 10/14/23 21:21> General Exam Limitations: no limitations <Mariana Diehl - Last Filed: 10/14/23 21:21> - General Exam Comments Initial Comments: Visual Physical Exam Vital signs reviewed General: Well-appearing, nontoxic, no acute distress. Head: Normocephalic, atraumatic Eyes: PERRLA, EOMI ENT: Airway patent Chest: Nonlabored breathing Skin: No visual rash, normal skin tone Neuro: Alert and oriented 3 Musculoskeletal: No gross abnormalities (Mariana Diehl) Course Vital Signs 10/14/23 20:51 Temperature 98.2 F Pulse Rate 76 Respiratory 18 Rate Blood Pressure 136/70 O2 Sat by Pulse 99 Oximetry Medical Decision Making <Mariana Diehl - Last Filed: 10/14/23 21:21> - Lab Data Result diagrams: 10/14/23 21:12 10/14/23 21:12 <Gustavo Loredo - Last Filed: 10/15/23 03:05> - Medical Decision Making I completed the quick note portion of this chart signed Mariana Diehl PA-C (Mariana Diehl) - Lab Data Lab Results 10/14/23 10/14/23 10/14/23 Range/Units 21:12 21:12 21:12 WBC 13.9 H (3.8-10.6) k/uL RBC 4.68 (3.80-5.40) m/uL Hgb 14.8 (11.4-16.0) gm/dL Hct 44.6 (34.0-46.0) % MCV 95.3 (80.0-100.0) fL MCH 31.6 (25.0-35.0) pg MCHC 33.2 (31.0-37.0) g/dL RDW 11.8 (11.5-15.5) % Plt Count 187 (150-450) k/uL MPV 8.9 Neutrophils % 74 % Lymphocytes % 20 % Monocytes % 4 % Eosinophils % 1 % Basophils % 0 % Neutrophils # 10.2 H (1.3-7.7) k/uL Lymphocytes # 2.7 (1.0-4.8) k/uL Monocytes # 0.5 (0-1.0) k/uL Eosinophils # 0.2 (0-0.7) k/uL Basophils # 0.1 (0-0.2) k/uL Sodium 143 (137-145) mmol/L Potassium 3.5 (3.5-5.1) mmol/L Chloride 111 H (98-107) mmol/L Carbon Dioxide 24 (22-30) mmol/L Anion Gap 8 mmol/L BUN 11 (7-17) mg/dL Creatinine 0.68 (0.52-1.04) mg/dL Est GFR (CKD-EPI)AfAm >90 (>60 ml/min/1.73 sqM) Est GFR (CKD-EPI)NonAf >90 (>60 ml/min/1.73 sqM) Glucose 99 (74-99) mg/dL Plasma Lactic Acid [place] (0.7-2.0) mmol/L Calcium 9.6 (8.4-10.2) mg/dL Total Bilirubin 1.0 (0.2-1.3) mg/dL AST 357 H (14-36) U/L ALT 181 H (4-34) U/L Alkaline Phosphatase 132 H (38-126) U/L Total Protein 7.1 (6.3-8.2) g/dL Albumin 4.3 (3.5-5.0) g/dL Lipase 91 (23-300) U/L 10/14/23 Range/Units 22:08 WBC (3.8-10.6) k/uL RBC (3.80-5.40) m/uL Hgb (11.4-16.0) gm/dL Hct (34.0-46.0) % MCV (80.0-100.0) fL MCH (25.0-35.0) pg MCHC (31.0-37.0) g/dL RDW (11.5-15.5) % Plt Count (150-450) k/uL MPV Neutrophils % % Lymphocytes % % Monocytes % % Eosinophils % % Basophils % % Neutrophils # (1.3-7.7) k/uL Lymphocytes # (1.0-4.8) k/uL Monocytes # (0-1.0) k/uL Eosinophils # (0-0.7) k/uL Basophils # (0-0.2) k/uL Sodium (137-145) mmol/L Potassium (3.5-5.1) mmol/L Chloride (98-107) mmol/L Carbon Dioxide (22-30) mmol/L Anion Gap mmol/L BUN (7-17) mg/dL Creatinine (0.52-1.04) mg/dL Est GFR (CKD-EPI)AfAm (>60 ml/min/1.73 sqM) Est GFR (CKD-EPI)NonAf (>60 ml/min/1.73 sqM) Glucose (74-99) mg/dL Plasma Lactic Acid [place] 1.1 (0.7-2.0) mmol/L Calcium (8.4-10.2) mg/dL Total Bilirubin (0.2-1.3) mg/dL AST (14-36) U/L ALT (4-34) U/L Alkaline Phosphatase (38-126) U/L Total Protein (6.3-8.2) g/dL Albumin (3.5-5.0) g/dL Lipase (23-300) U/L Disposition <Mariana Diehl - Last Filed: 10/14/23 21:21> Is patient prescribed a controlled substance at d/c from ED?: No <Gustavo Loredo - Last Filed: 10/15/23 03:05> Clinical Impression: Abdominal pain Disposition: HOME SELF-CARE Condition: Good Instructions (If sedation given, give patient instructions): Abdominal Pain (ED) Referrals: None,Stated [Primary Care Provider] - 1-2 days
[2023-10-14 21:24] LABS: Basophils # (A) 0.1 k/uL (0-0.2); Basophils % (A) 0 %; Eosinophils # (A) 0.2 k/uL (0-0.7); Eosinophils % (A) 1 %; HCT 44.6 % (34.0-46.0); HGB 14.8 gm/dL (11.4-16.0); Lymphocytes # (A) 2.7 k/uL (1.0-4.8); Lymphocytes % (A) 20 %; MCH 31.6 pg (25.0-35.0); MCHC 33.2 g/dL (31.0-37.0); MCV 95.3 fL (80.0-100.0); Mean Platelet Volume 8.9; Monocytes # (A) 0.5 k/uL (0-1.0); Monocytes % (A) 4 %; Neutrophils # (A) 10.2 k/uL (1.3-7.7); Neutrophils % (A) 74 %; Platelet Count 187 k/uL (150-450); RBC 4.68 m/uL (3.80-5.40); RDW 11.8 % (11.5-15.5); WBC 13.9 k/uL (3.8-10.6)
[2023-10-14 21:36] LABS: ALT 181 U/L (4-34); AST 357 U/L (14-36); African American GFR (CKD) >90 (>60 ml/min/1.73 sqM); Albumin 4.3 g/dL (3.5-5.0); Alkaline Phosphatase 132 U/L (38-126); Anion Gap 8 mmol/L; Blood Urea Nitrogen 11 mg/dL (7-17); Calcium 9.6 mg/dL (8.4-10.2); Carbon Dioxide 24 mmol/L (22-30); Chloride 111 mmol/L (98-107); Glucose 99 mg/dL (74-99); Non-African American GFR(CKD) >90 (>60 ml/min/1.73 sqM); Potassium 3.5 mmol/L (3.5-5.1); Sodium 143 mmol/L (137-145); Total Protein 7.1 g/dL (6.3-8.2)
--- NOTE | 2023-10-14 23:31 | XR ---
EXAMINATION TYPE: XR KUB DATE OF EXAM: 10/14/2023 9:36 PM CLINICAL HISTORY: Abdominal cramping. Bloating and pain. Patient currently taking prep for colonosco py. TECHNIQUE: Two Upright KUB images of the abdomen are obtained. COMPARISON: Prior abdominal x-ray October 02, 2022 FINDINGS: Some paucity of bowel gas. Scattered gas is seen in nondistended small and large bowel loop s. Several air-fluid levels are present which is nonspecific finding. Cholecystectomy clips are redem onstrated. Thoracic spinal stimulator is partially imaged similar to prior. No free air. Lung bases r emain clear. Osseous structures are intact. IMPRESSION: Overall nonspecific but favor nonobstructive bowel gas pattern.
[2023-10-15] MEDS: DICYCLOMINE 10 MG/ML 2 ML AMP IM STA (01:24)
--- NOTE | 2023-10-15 02:26 | US ---
EXAM: US Abdomen Limited, Right Upper Quadrant CLINICAL HISTORY: attention RUQ. Reported abdominal pain following colonoscopy prep. No bowel movements. History of constipation. Status post cholecystectomy. TECHNIQUE: Real-time ultrasound of the right upper quadrant with image documentation. COMPARISON: Abdominal ultrasound 06/09/2023 FINDINGS: Liver: The liver is slightly hyperechoic, measuring 16.5 cm in length. No intrahepatic bile duct dilation. Gallbladder: Gallbladder is not identified, consistent with prior cholecystectomy. Common bile duct: The common bile duct measures 5.5 mm. No stones. No dilation. Pancreas: Visualized portions of the pancreas are unremarkable. Right kidney: The right kidney measures 9.9 x 4.1 x 4.9 cm. No hydronephrosis or nephrolithiasis. There is an ovoid hypoechoic structure noted at the renal hilum measuring 10 mm. Free fluid: No free fluid. IMPRESSION: 1. Status post cholecystectomy. The common bile duct is within normal limits, measuring 5.5 mm. 2. 1 cm cyst noted near the right renal hilum is a presumed incidental parapelvic cysts. No hydronephrosis or nephrolithiasis. 3. Otherwise negative right upper quadrant sonographic evaluation.
[2023-10-15] MEDS: ONDANSETRON ODT 4 MG TAB PO STA (03:40)
[2023-10-15 04:24] VITALS: BP 135/88; PULSE 88; RESP 20; TEMP 98.8
== END 2023-10-15 03:48 | disposition home or self-care (01) ==
LOC: EC 20:19
DX: N28.1 Cyst of kidney, acquired (principal); F17.200 Nicotine dependence, unspecified, uncomplicated; F12.90 Cannabis use, unspecified, uncomplicated; Z91.018 Allergy to other foods; Z91.010 Allergy to peanuts; Z88.0 Allergy status to penicillin; Z88.2 Allergy status to sulfonamides; Z88.6 Allergy status to analgesic agent; Z88.1 Allergy status to other antibiotic agents; Z88.8 Allergy status to other drugs, medicaments and biological substances; Z88.5 Allergy status to narcotic agent
CPT/HCPCS: 96372; 36415; 80053; 83605; 83690; 85025; 74018; 76705; 99285; J0500; 99284

== ENCOUNTER → 2023-10-30 | Outpatient (CLI) | payer MEDICARE, OTHER ==
[2023-10-30 14:34] LABS: Basophils # (A) 0.04 X 10*3/uL (0.00-0.10); Basophils % (A) 0.6 %; Eosinophils # (A) 0.22 X 10*3/uL (0.04-0.35); Eosinophils % (A) 3.4 %; HCT 40.9 % (37.2-46.3); HGB 13.6 g/dL (12.0-15.0); Lymphocytes # (A) 1.59 X 10*3/uL (0.90-5.00); Lymphocytes % (A) 24.5 %; MCH 31.5 pg (27.0-32.0); MCHC 33.3 g/dL (32.0-37.0); MCV 94.7 FL (80.0-97.0); Mean Platelet Volume 11.6 FL (9.5-12.2); Monocytes # (A) 0.61 X 10*3/uL (0.20-1.00); Monocytes % (A) 9.4 %; NRBC Per 100 WBC 0 X 10*3/uL (0.00-0.01); Neutrophils # (A) 4.02 X 10*3/uL (1.80-7.70); Neutrophils % (A) 61.8 %; Platelet Count 194 X 10*3/uL (140-440); RBC 4.32 X 10*6/uL (4.10-5.20); RDW 11.9 % (11.5-14.5)
[2023-10-30 16:06] LABS: Albumin 4.1 g/dL (3.8-4.9); BUN/Creat Ratio 16.75 Ratio (12.00-20.00); Blood Urea Nitrogen 13.4 mg/dL (9.0-27.0); Calcium 9.3 mg/dL (8.7-10.3); Carbon Dioxide 25.4 mmol/L (21.6-31.8); Chloride 108 mmol/L (96-109); Globulin 2.3 g/dL (1.6-3.3); Glucose 100 mg/dL (70-110); Potassium 4.5 mmol/L (3.5-5.5); Sodium 143 mmol/L (135-145); Total Protein 6.4 g/dL (6.2-8.2)
[2023-10-30 16:07] LABS: ALT 25 U/L (8-44); AST 17 U/L (13-35); Albumin/Globulin Ratio 1.78 Ratio (1.60-3.17); Alkaline Phosphatase 95 U/L (41-126); Total Bilirubin 0.3 mg/dL (0.3-1.2)
== END | disposition home or self-care (01) ==
LOC: LABWHC1 09:36
PROVIDERS: ATTEND Internal Medicine Gastroenterology
DX: R74.01 Elevation of levels of liver transaminase levels (principal)
CPT/HCPCS: 36415; 80053; 85025

== ENCOUNTER 2023-11-25 06:17 | Emergency (ER) | payer MEDICARE, OTHER ==
--- NOTE | 2023-11-25 06:51 | XR ---
EXAMINATION TYPE: XR chest 2V DATE OF EXAM: 11/25/2023 COMPARISON: Chest x-ray November 18, 2022 HISTORY: Cough. TECHNIQUE: Frontal and lateral views of the chest are obtained. FINDINGS: There is no focal air space opacity, pleural effusion, or pneumothorax seen. The cardiac silhouette size is stable and within normal limits. Midthoracic spinal stimulator device redemonstrat ed. IMPRESSION: No acute pulmonary infiltrate. No significant change from most recent prior.
[2023-11-25 07:05] VITALS: RESP 20
--- NOTE | 2023-11-25 07:12 | ED ---
URI HPI - General Chief Complaint: Upper Respiratory Infection Stated Complaint: Cough, Respiratory Infection Time Seen by Provider: 11/25/23 06:35 Source: patient, RN notes reviewed Mode of arrival: ambulatory Limitations: no limitations - History of Present Illness Initial Comments: This is a 53-year-old female who presents to the emergency department for coughing and congestion. States that it started about 2 weeks ago. The head congestion began to improve, however she feels like it all settled into her chest. Symptoms have since persisted over the last 2 to 3 weeks. When she woke up this morning, she started to have the congestion in her head again. States that this is causing her asthma to act up. Reports a productive cough. She only gets shortness of breath when she goes into a coughing fit at night. Denies any chest pain, fevers, or chills. She has not yet been treated for this illness. She did try using her ProAir inhaler without much relief. She did have some improvement with her albuterol nebulizer treatments. MD Complaint: cough, nasal congestion - Related Data Home Medications Medication Instructions Recorded Confirmed Gabapentin [Neurontin] 600 mg PO Q4H 12/14/13 10/13/23 cloNIDine HCL [Catapres] 0.3 mg PO QID 12/14/13 10/13/23 polyethylene glycoL 3350 [Miralax] 51 gm PO DAILY PRN 09/07/17 10/13/23 Fluticasone Propionate [Flovent 1 puff INHALATION RT-BID 01/17/20 10/13/23 Hfa 220 mcg] Cetirizine HCl [Zyrtec] 10 mg PO DAILY 03/10/20 10/13/23 Linaclotide [Linzess] 145 mcg PO HS 03/10/20 10/13/23 Montelukast [Singulair] 10 mg PO HS 03/10/20 10/13/23 Melatonin 3 mg PO HS 02/12/21 10/13/23 Prochlorperazine [Compazine] 10 mg PO Q8HR 02/12/21 10/13/23 Albuterol Inhaler [Ventolin Hfa 2 puff INHALATION DAILY PRN 03/14/21 10/13/23 Inhaler] Cholecalciferol (Vitamin D3) 125 mcg PO DAILY 03/14/21 10/13/23 [Vitamin D3 (125 MCG = 5,000 IU)] Esomeprazole Magnesium [NexIUM] 20 mg PO BID 11/05/22 10/13/23 Previous Rx's Medication Instructions Recorded EPINEPHrine (Auto Inject) [Epipen] 0.3 mg IM ONCE PRN #2 pen 03/10/20 Triamcinolone 0.1% Cream [Kenalog 1 applicatio TOPICAL BID PRN #30 gm 11/05/22 0.1% Cream] valACYclovir HCL [Valtrex] 500 mg PO DAILY #90 tab 11/05/22 Azithromycin [Zithromax] 250 mg PO DIRECTED 5 Days #6 tab 11/25/23 Benzonatate [Tessalon Perle] 200 mg PO TID PRN #30 capsule 11/25/23 Ipratropium-Albuterol Nebulize 3 ml INHALATION Q4-6H PRN #90 ml 11/25/23 [Duoneb 0.5 mg-3 mg/3 ml Soln] predniSONE 50 mg PO DAILY 5 Days #5 tab 11/25/23 Allergies Allergy/AdvReac Type Severity Reaction Status Date / Time diclofenac [From Voltaren] Allergy Anaphylaxis Verified 10/14/23 20:51 mold Allergy Wheezing Verified 10/14/23 20:51 sulfamethoxazole Allergy Itching Verified 10/14/23 20:51 [From Bactrim] trimethoprim [From Bactrim] Allergy Itching Verified 10/14/23 20:51 acetaminophen AdvReac Nausea & Verified 10/14/23 20:51 [From Tylenol-Codeine #3] Vomiting amoxicillin AdvReac Rash/Hives Verified 10/14/23 20:51 aspirin AdvReac Nausea & Verified 10/14/23 20:51 Vomiting codeine phosphate AdvReac Nausea & Verified 10/14/23 20:51 [From Tylenol-Codeine #3] Vomiting Milk Containing Products AdvReac Nausea & Verified 10/14/23 20:51 (Dairy) Vomiting [Milk Containing Products] peanut AdvReac Diarrhea Verified 10/14/23 20:51 Penicillins AdvReac Rash/Hives Verified 10/14/23 20:51 Review of Systems ROS Statement: Those systems with pertinent positive or pertinent negative responses have been documented in the HPI. ROS Other: All systems not noted in ROS Statement are negative. Past Medical History Past Medical History: Asthma, CVA/TIA, Fibromyalgia, GERD/Reflux, Hyperlipidemia, Sleep Apnea/CPAP/BIPAP Additional Past Medical History / Comment(s): CVA described as a "silent stroke"in 2020.Borderline thyroid condition. Osteopenia.Past cpap uses, cataracts, states she could not tolerate the colonoscopy prep when she was scheduled last. States has abd. pain. History of Any Multi-Drug Resistant Organisms: None Reported Past Surgical History: Breast Surgery, Cholecystectomy, Orthopedic Surgery, Tubal Ligation Additional Past Surgical History / Comment(s): Neck surgery,dental implants, EGD. Arthroscopic knee surgery. Right breast biopsy. D&C x2. Colonoscopy 2019(next after 5yr). Spinal cord stimulator. Past Anesthesia/Blood Transfusion Reactions: No Reported Reaction Additional Past Anesthesia/Blood Transfusion Reaction / Comment(s): no blood transfusion. has had iron infusions no reaction Past Psychological History: Anxiety, Bipolar, Depression, PTSD Smoking Status: Current every day smoker Past Alcohol Use History: None Reported Past Drug Use History: None Reported - Past Family History Mother Family Medical History: Cancer, Hypertension Additional Family Medical History / Comment(s): Possibly uterine or cervical cancer. Lichen sclerosus of the vulva. Sister(s) Family Medical History: Cancer Additional Family Medical History / Comment(s): Vulvar cancer. Father Family Medical History: Hypertension General Exam Limitations: no limitations General appearance: alert, in no apparent distress Head exam: Present: atraumatic, normocephalic, normal inspection Respiratory exam: Present: normal lung sounds bilaterally. Absent: respiratory distress, wheezes, rales, rhonchi, stridor Cardiovascular Exam: Present: regular rate, normal rhythm, normal heart sounds. Absent: systolic murmur, diastolic murmur, rubs, gallop, clicks Neurological exam: Present: alert, oriented X3, CN II-XII intact Psychiatric exam: Present: normal affect, normal mood Skin exam: Present: warm, dry, intact, normal color. Absent: rash Course Vital Signs 11/25/23 11/25/23 11/25/23 06:31 06:59 07:40 Temperature 98.2 F Pulse Rate 82 82 Respiratory 19 20 Rate Blood Pressure 92/59 O2 Sat by Pulse 98 Oximetry 11/25/23 11/25/23 07:54 08:07 Temperature 97 F L Pulse Rate 84 84 Respiratory 20 Rate Blood Pressure 112/62 O2 Sat by Pulse 98 Oximetry Medical Decision Making - Medical Decision Making This is a 53 year old female who presents to the emergency department for coughing and congestion. Was pt. sent in by a medical professional or institution? @ -No Did you speak to anyone other than the patient for history? @ -No Did you review nursing and triage notes? @ -Yes, and I agree, it is accurate with regards to the patient's symptoms. Were old charts reviewed? @ -No Differential Diagnosis? @ -Differential Cough: Influenza, Covid, RSV, croup, allergic rhinitis, GERD, pneumonia, bronchitis, COPD, viral pharyngitis, streptococcal pharyngitis, this is not meant to be an all-inclusive list. EKG interpreted by me (3pts min.)? @ -Not obtained X-rays interpreted by me (1pt min.)? @ -Chest x-ray obtained, my interpretation identifies no localized consolidations or infiltrates. CT interpreted by me (1pt min.)? @ -Not obtained U/S interpreted by me (1pt. min.)? @ -Not obtained What testing was considered but not performed? (CT, X-rays, U/S, labs)? Why? @ -None What meds were considered but not given? Why? @ -None Did you discuss the management of the patient with other professionals? @ -No Did you reconcile home meds? @ -No Was smoking cessation discussed for >3mins.? @ -I discussed smoking cessation for greater than 3 minutes. The risk of smoking were discussed with the patient including but not limited to risks of cancer, stroke, coronary artery disease and COPD. Also discussed with patient were multiple methods of quitting smoking. Lastly we discussed the financial cost of smoking. Was critical care preformed (if so, how long)? @ -No Were there social determinants of health that impacted care today? How? (Homelessness, low income, unemployed, alcoholism, drug addiction, transportation, low edu. Level, literacy, decrease access to med. care, nursing home, rehab)? @ -No Was there de-escalation of care discussed even if they declined? (Discuss DNR or withdrawal of care, Hospice)? @ -No What co-morbidities impacted this encounter? (DM, HTN, Smoking, COPD, CAD, Cancer, CVA, Hep., AIDS, mental health diagnosis, sleep apnea, morbid obesity)? @ -Asthma, smoking Was patient admitted / discharged? @ -Discharged. COVID, influenza, and RSV testing negative. Chest x-ray reveals no acute process. DuoNeb breathing treatment administered in the emergency department. Given the duration of her symptoms of 2 to 3 weeks, we will start antibiotics at this point. Will also start her on steroids given the history of asthma. Rx for azithromycin and prednisone provided with dosing instructions reviewed. Prescription for DuoNeb breathing treatments and Tessalon Perles provided as well for further symptomatic management. Patient discharged home in stable condition and advised to follow up with her PCP. Undiagnosed new problem with uncertain prognosis? @ -None Drug Therapy requiring intensive monitoring for toxicity (Heparin, Nitro, Insulin, Cardizem)? @ -None Were any procedures done? @ -None Diagnosis/symptom? @ -Asthmatic bronchitis Acute, or Chronic, or Acute on Chronic? @ -Acute Uncomplicated (without systemic symptoms) or Complicated (systemic symptoms)? @ -Uncomplicated Side effects of treatment? @ -None Exacerbation, Progression, or Severe Exacerbation] @ -Not applicable Poses a threat to life or bodily function? @ -No Return precautions reviewed in depth, the patient is instructed to return to the emergency department with any new, worsening, or concerning symptoms. Patient verbalized understanding. This case was discussed in detail with the attending ED physician, Dr. Roberts. Presentation, findings, and treatment plan discussed in detail as well. - Lab Data Lab Results 11/25/23 Range/Units 06:34 Influenza Type A (PCR) Not Detected (Not Detectd) Influenza Type B (PCR) Not Detected (Not Detectd) RSV (PCR) Not Detected (Not Detectd) SARS-CoV-2 (PCR) Not Detected (Not Detectd) - Radiology Data Radiology results: report reviewed, image reviewed Disposition Clinical Impression: Nicotine dependence, Asthmatic bronchitis Disposition: HOME SELF-CARE Instructions (If sedation given, give patient instructions): Upper Respiratory Infection (ED), Acute Bronchitis (ED) Additional Instructions: Return to the emergency department with any new, worsening, or concerning symptoms. Take the antibiotic as prescribed for 5 days. Take the prednisone daily for 5 days. You can use the DuoNeb breathing treatments every 4-6 hours. You can take the Tessalon Perles up to every 8 hours as needed for coughing. Follow up with your primary care provider in 1-2 days. Prescriptions: Ipratropium-Albuterol Nebulize [Duoneb 0.5 mg-3 mg/3 ml Soln] 3 ml INHALATION Q4-6H PRN #90 ml PRN Reason: Shortness Of Breath predniSONE 50 mg PO DAILY 5 Days #5 tab Benzonatate [Tessalon Perle] 200 mg PO TID PRN #30 capsule PRN Reason: Cough Azithromycin [Zithromax] 250 mg PO DIRECTED 5 Days #6 tab Is patient prescribed a controlled substance at d/c from ED?: No Referrals: [facility] [NON-STAFF] - 1-2 days Time of Disposition: 08:03
[2023-11-25] MEDS: BENZONATATE 100 MG CAP PO STA (07:13)
[2023-11-25] MEDS: DEXAMETHASONE SOD PHOSPHATE 10 MG/ML 1 ML VIAL IM STA (07:14)
[2023-11-25] MEDS: OXYMETAZOLINE 0.05% NASL SPRAY 1 SPRAY BOTTLE NASAL STA (07:20)
[2023-11-25] MEDS: IPRATROPIUM-ALBUTEROL 3 ML NEB INHALATION STA (07:40)
[2023-11-25 07:55] VITALS: PULSE 84
[2023-11-25 08:09] VITALS: BP 112/62; TEMP 97
== END 2023-11-25 08:09 | disposition home or self-care (01) ==
LOC: EC 06:17
DX: J45.909 Unspecified asthma, uncomplicated (principal); F17.200 Nicotine dependence, unspecified, uncomplicated; Z91.018 Allergy to other foods; Z88.6 Allergy status to analgesic agent; Z88.2 Allergy status to sulfonamides; Z88.0 Allergy status to penicillin; Z88.5 Allergy status to narcotic agent; Z88.8 Allergy status to other drugs, medicaments and biological substances
CPT/HCPCS: 94640; 87636; 71046; 99283; 96372; J1100

== ENCOUNTER 2023-12-30 10:20 | Day surgery (SDC) | payer MEDICARE, OTHER ==
[2023-12-28 09:41] VITALS: BMI 22.6
[2023-12-30] MEDS ORDERED: LACTATED RINGERS 1,000 ML IV SCH (10:34)
[2023-12-30] MEDS: IV FLUID CONTINUATION 1,000 ML IV ONE (10:34)
[2023-12-30 10:52] VITALS: TEMP 97
[2023-12-30] MEDS ORDERED: PROPOFOL 10 MG/ML 20 ML VIAL IV ONE (11:05)
[2023-12-30] MEDS ORDERED: LIDOCAINE 1% INJ 10MG/ML (20 ML MDV) ONE (11:05)
--- NOTE | 2023-12-30 11:14 | P.PCN ---
Date of Procedure: 12/30/23 Procedure(s) Performed: BRIEF HISTORY: Patient is a 54-year-old, pleasant, white female scheduled for an upper endoscopy as a part evaluation of severe epigastric pain associate with nausea vomiting for which she went to the emergency room 2 weeks ago. She has been having chronic intermittent epigastric pain for several years now. She is presently on Nexium 40 mg daily with some help.. PROCEDURE PERFORMED: Esophagogastroduodenoscopy with biopsy. PREOPERATIVE DIAGNOSIS: Chronic epigastric pain. IV sedation per anesthesia. PROCEDURE: After informed consent was obtained, the patient was brought into the endoscopy unit. IV sedation was administered by Anesthesia under continuous monitoring. Initially the Olympus GIF-140 video endoscope was inserted into the mouth. Esophagus intubated without any difficulty. It was gradually advanced into the stomach and duodenum and carefully examined. The bulb and the second part of the duodenum appeared normal. The scope at this time was withdrawn to the stomach, adequately insufflated with air, and upon careful examination, mucosa of the antrum, had linear areas of erythema consistent with gastritis and biopsies were done from this area. Mucosa of the body, cardia and the fundus appeared normal. The scope was then withdrawn into the esophagus. The GE junction was located at 39 cm from the incisors. The esophagus appeared normal. There were no erosions or ulcerations seen biopsies were done from the distal esophagus and the patient tolerated the procedure well. IMPRESSION: 1. Mild antral gastritis. 2. Normal-appearing esophagus with no evidence of esophagitis or esophageal stricture. RECOMMENDATIONS: The findings of this examination were discussed with the patient as well as her family. She was advised to continue with Nexium 40 mg daily and follow antireflux measures. Follow-up in the office in 3 to 4 weeks..
[2023-12-30 11:38] VITALS: BP 108/61; PULSE 73; RESP 14
== END 2023-12-30 11:52 | disposition home or self-care (01) ==
LOC: ORWHC2ENDO 10:20
PROVIDERS: ATTEND Internal Medicine Gastroenterology
DX: K29.50 Unspecified chronic gastritis without bleeding (principal); K31.9 Disease of stomach and duodenum, unspecified; G89.29 Other chronic pain; K20.90 Esophagitis, unspecified without bleeding; J45.909 Unspecified asthma, uncomplicated; G47.33 Obstructive sleep apnea (adult) (pediatric); E07.9 Disorder of thyroid, unspecified; F17.210 Nicotine dependence, cigarettes, uncomplicated; Z86.73 Personal history of transient ischemic attack (TIA), and cerebral infarction without residual deficits; Z79.51 Long term (current) use of inhaled steroids; Z79.899 Other long term (current) drug therapy; Z88.0 Allergy status to penicillin; Z88.1 Allergy status to other antibiotic agents
CPT/HCPCS: 88305; 43239; J2001; J2704

== ENCOUNTER → 2024-01-05 | Outpatient (CLI) | payer MEDICARE, OTHER ==
[2024-01-05 11:38] VITALS: BP 103/61; PULSE 74; RESP 15; TEMP 97.9
--- NOTE | 2024-01-05 13:03 | P.HPOB ---
History of Present Illness H&P Date: 01/05/24 Chief Complaint: The patient is here for her routine gynecologic exam. This is a 53-year-old with an LMP of 2018. The patient continues to have fairly frequent HSV outbreaks. She notices this more when she is under stress. She has had more than 6 outbreaks during the past year. She has not been using suppressive Valtrex therapy and prefers to be take it when episodes occur. She continues to occasionally have vulvar irritation other than the HSV symptoms. She states the Kenalog cream has been very helpful and would like to continue to have this available for when she has this type of irritation. She is otherwise without gynecologic complaints and denies any postmenopausal bleeding. Review of Systems The patient has lost 16 pounds over the last year. She has been continuing to actively try to lose weight with her diet. She now has reached her goal weight. She denies respiratory, cardiac, or G.I. problems. Past Medical History Past Medical History: Asthma, CVA/TIA, Fibromyalgia, GERD/Reflux, Hyperlipidemia, Sleep Apnea/CPAP/BIPAP Additional Past Medical History / Comment(s): CVA described as a "silent stroke"in 2020.Borderline thyroid condition. Osteopenia.Past cpap uses, cataracts, states she could not tolerate the colonoscopy prep when she was scheduled last. 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 Also history of genital HSV type II. History of Any Multi-Drug Resistant Organisms: None Reported Past Surgical History: Breast Surgery, Cholecystectomy, Orthopedic Surgery, Tubal Ligation Additional Past Surgical History / Comment(s): Neck surgery,dental implants, EGD. Arthroscopic knee surgery. Right breast biopsy. D&C x2. Colonoscopy 2019(next after 5yr). Spinal cord stimulator. Past Anesthesia/Blood Transfusion Reactions: No Reported Reaction Additional Past Anesthesia/Blood Transfusion Reaction / Comment(s): no blood transfusion. has had iron infusions no reaction Past Psychological History: Anxiety, Bipolar, Depression, PTSD Smoking Status: Current every day smoker (About 15 cigarettes/day.) Past Alcohol Use History: None Reported Past Drug Use History: Marijuana (Consumes edible marijuana in the evening. Not currently smoking marijuana.) Additional Drug Use History / Comment(s): Medical marijuana. marijuana once in a while but uses edible marijuana. knows to not have 24 hours prior to procedure Additional History: She is single and has been with her boyfriend since 2012. They live together. She is disabled. - Past Family History Mother Family Medical History: Cancer, Hypertension Additional Family Medical History / Comment(s): Possibly uterine or cervical cancer. Lichen sclerosus of the vulva. Sister(s) Family Medical History: Cancer Additional Family Medical History / Comment(s): Vulvar cancer. Father Family Medical History: Hypertension Medications and Allergies Home Medications Medication Instructions Recorded Confirmed Type Gabapentin [Neurontin] 600 mg PO Q4H 12/14/13 01/05/24 History cloNIDine HCL [Catapres] 0.1 mg PO HS 12/14/13 01/05/24 History Fluticasone Propionate [Flovent 1 puff INHALATION RT-BID 01/17/20 01/05/24 History Hfa 220 mcg] Cetirizine HCl [Zyrtec] 10 mg PO DAILY 03/10/20 01/05/24 History EPINEPHrine (Auto Inject) [Epipen] 0.3 mg IM ONCE PRN #2 pen 03/10/20 01/05/24 Rx Linaclotide [Linzess] 145 mcg PO HS 03/10/20 01/05/24 History Melatonin 3 mg PO HS 02/12/21 01/05/24 History Prochlorperazine [Compazine] 10 mg PO Q8HR 02/12/21 01/05/24 History Albuterol Inhaler [Ventolin Hfa 2 puff INHALATION DAILY PRN 03/14/21 01/05/24 History Inhaler] Esomeprazole Magnesium [NexIUM] 20 mg PO BID 11/05/22 01/05/24 History Triamcinolone 0.1% Cream [Kenalog 1 applicatio TOPICAL BID PRN #30 gm 11/05/22 01/05/24 Rx 0.1% Cream] valACYclovir HCL [Valtrex] 500 mg PO DAILY #90 tab 11/05/22 01/05/24 Rx Ipratropium-Albuterol Nebulize 3 ml INHALATION Q4-6H PRN #90 ml 11/25/23 01/05/24 Rx [Duoneb 0.5 mg-3 mg/3 ml Soln] Albuterol Sulfate [Proair 1 puff INHALATION DAILY PRN 12/28/23 01/05/24 History Digihaler] Cholecalciferol (Vitamin D3) 1 tab PO DAILY 01/05/24 01/05/24 History [Vitamin D3 (125 MCG = 5,000 IU)] Allergies Allergy/AdvReac Type Severity Reaction Status Date / Time diclofenac [From Voltaren] Allergy Anaphylaxis Verified 01/05/24 11:35 mold Allergy Wheezing Verified 01/05/24 11:35 sulfamethoxazole Allergy Itching Verified 01/05/24 11:35 [From Bactrim] trimethoprim [From Bactrim] Allergy Itching Verified 01/05/24 11:35 acetaminophen AdvReac Nausea & Verified 01/05/24 11:35 [From Tylenol-Codeine #3] Vomiting amoxicillin AdvReac Rash/Hives Verified 01/05/24 11:35 aspirin AdvReac Nausea & Verified 01/05/24 11:35 Vomiting codeine phosphate AdvReac Nausea & Verified 01/05/24 11:35 [From Tylenol-Codeine #3] Vomiting Milk Containing Products AdvReac Nausea & Verified 01/05/24 11:35 (Dairy) Vomiting [Milk Containing Products] peanut AdvReac Diarrhea Verified 01/05/24 11:35 Penicillins AdvReac Rash/Hives Verified 01/05/24 11:35 Exam Vital Signs Temp Pulse Resp BP Pulse Ox 01/05/24 11:35 97.9 F 74 15 103/61 97 Intake and Output 01/04/24 01/05/24 01/05/24 22:59 06:59 14:59 Other: Weight 63.957 kg Height 5 feet 6 inches, weight was rechecked and was 138 pounds. BMI 22.8. This is a well-developed well-nourished white female who is alert and oriented times 3 in no acute distress. HEENT: Within normal limits. NECK: Supple without mass or thyromegaly. CHEST AND LUNGS: Clear to auscultation. HEART: Regular rate and rhythm. BREASTS: Are without mass or discharge. AXILLARY EXAM: Negative for adenopathy. BACK: Negative for CVA tenderness. ABDOMEN: Soft, nontender, without palpable masses. PELVIC EXAM: Normal external genitalia with mild atrophy. Cervix and vagina appear normal with minimal atrophy. There is no unusual discharge. There is no evidence of prolapse. The uterus is midposition, nongravid size and nontender. There are no palpable adnexal masses or tenderness. RECTAL EXAM: Rectovaginal exam is negative for mass or tenderness and is negative for occult blood. EXTREMITIES: Nontender. IMPRESSION: 1. 53-year-old menopausal female with normal gynecologic exam. 2. Frequent genital HSV outbreaks. 3. Intermittent vulvar irritation with no significant physical findings on exam today. She states Kenalog cream is helpful when she has these episodes of irritation. 4. History of osteopenia. PLAN: 1. Pap smear was deferred since she had a negative Pap smear cotest on 01/22. 2. Self breast awareness was discussed with the patient. We have also discussed symptoms associated with inflammatory breast cancer. 3. Screening mammogram will be due in March and the order slip was given to the patient for this. 4. Osteoporosis prevention was discussed. I have stressed the importance of adequate calcium, vitamin D and regular exercise. Recommended amounts of calc ium and vitamin D were also discussed. Plan on repeating the bone density test in 1 year. 5. Valtrex 500 mg p.o. twice daily x 3 days and this will be started at the onset of an HSV outbreak. The patient states she would prefer to use the Valtrex episodically and not as a suppressive therapy daily. She will also use Kenalog 0.1% cream twice daily as needed vulvar irritation. The electronic pr escriptions for both of these will be [facility]. 6. She was advised to return in one year for her annual well woman exam.
== END ==
LOC: WWCWWP 11:06
PROVIDERS: ATTEND Obstetrics & Gynecology
DX: Z01.419 Encounter for gynecological examination (general) (routine) without abnormal findings (principal); M85.80 Other specified disorders of bone density and structure, unspecified site; N76.89 Other specified inflammation of vagina and vulva; A60.09 Herpesviral infection of other urogenital tract; F17.210 Nicotine dependence, cigarettes, uncomplicated; Z78.0 Asymptomatic menopausal state; Z88.8 Allergy status to other drugs, medicaments and biological substances; Z91.09 Other allergy status, other than to drugs and biological substances; Z88.2 Allergy status to sulfonamides; Z88.0 Allergy status to penicillin; Z88.1 Allergy status to other antibiotic agents; Z91.010 Allergy to peanuts; Z91.011 Allergy to milk products; Z88.5 Allergy status to narcotic agent; Z88.6 Allergy status to analgesic agent

== ENCOUNTER 2024-05-19 05:44 | Emergency (ER) | payer MEDICARE, OTHER ==
[2024-05-19] MEDS: KETOROLAC 15 MG/ML 1 ML VIAL IM STA ×2 (06:34)
--- NOTE | 2024-05-19 06:37 | ED ---
URI HPI - General Chief Complaint: Upper Respiratory Infection Stated Complaint: Sinus Infection Time Seen by Provider: 05/19/24 06:35 Source: patient, RN notes reviewed Mode of arrival: ambulatory Limitations: no limitations - History of Present Illness Initial Comments: 53-year-old female presenting to the ER with a chief complaint of sinus congestion and cough. She states approximately 6 weeks ago she was diagnosed with COVID and has had continuous congestion since diagnosis. SHe admits to wet productive cough as well. Cough is now dry in nature. Patient states she has tried [id number] sinus medication without relief. She states she tried an old antibiotic at home as well without relief. Patient does report right sided facial pain and ear pain along with nausea. She denies any fevers, chills, vomiting, chest pain, shortness of breath, abdominal pain, constipation/diarrhea, urinary complaints or peripheral edema. Patient is a s moker. - Related Data Home Medications Medication Instructions Recorded Confirmed Gabapentin [Neurontin] 600 mg PO Q4H 12/14/13 01/05/24 cloNIDine HCL [Catapres] 0.1 mg PO HS 12/14/13 01/05/24 Fluticasone Propionate [Flovent 1 puff INHALATION RT-BID 01/17/20 01/05/24 Hfa 220 mcg] Cetirizine HCl [Zyrtec] 10 mg PO DAILY 03/10/20 01/05/24 Linaclotide [Linzess] 145 mcg PO HS 03/10/20 01/05/24 Melatonin 3 mg PO HS 02/12/21 01/05/24 Prochlorperazine [Compazine] 10 mg PO Q8HR 02/12/21 01/05/24 Albuterol Inhaler [Ventolin Hfa 2 puff INHALATION DAILY PRN 03/14/21 01/05/24 Inhaler] Esomeprazole Magnesium [NexIUM] 20 mg PO BID 11/05/22 01/05/24 Albuterol Sulfate [Proair 1 puff INHALATION DAILY PRN 12/28/23 01/05/24 Digihaler] Cholecalciferol (Vitamin D3) 1 tab PO DAILY 01/05/24 01/05/24 [Vitamin D3 (125 MCG = 5,000 IU)] Previous Rx's Medication Instructions Recorded EPINEPHrine (Auto Inject) [Epipen] 0.3 mg IM ONCE PRN #2 pen 03/10/20 Ipratropium-Albuterol Nebulize 3 ml INHALATION Q4-6H PRN #90 ml 11/25/23 [Duoneb 0.5 mg-3 mg/3 ml Soln] Triamcinolone 0.1% Cream [Kenalog 1 applicatio TOPICAL BID PRN #30 gm 01/05/24 0.1% Cream] valACYclovir HCL [Valtrex] 500 mg PO BID #6 tab 01/05/24 Azithromycin [Zithromax Z Pack] 0 tab PO DIRECTED #6 tab 05/19/24 Allergies Allergy/AdvReac Type Severity Reaction Status Date / Time diclofenac [From Voltaren] Allergy Anaphylaxis Verified 05/19/24 05:53 mold Allergy Wheezing Verified 05/19/24 05:53 sulfamethoxazole Allergy Itching Verified 05/19/24 05:53 [From Bactrim] trimethoprim [From Bactrim] Allergy Itching Verified 05/19/24 05:53 acetaminophen AdvReac Nausea & Verified 05/19/24 05:53 [From Tylenol-Codeine #3] Vomiting amoxicillin AdvReac Rash/Hives Verified 05/19/24 05:53 aspirin AdvReac Nausea & Verified 05/19/24 05:53 Vomiting codeine phosphate AdvReac Nausea & Verified 05/19/24 05:53 [From Tylenol-Codeine #3] Vomiting Milk Containing Products AdvReac Nausea & Verified 05/19/24 05:53 (Dairy) Vomiting [Milk Containing Products] peanut AdvReac Diarrhea Verified 05/19/24 05:53 Penicillins AdvReac Rash/Hives Verified 05/19/24 05:53 Review of Systems ROS Statement: Those systems with pertinent positive or pertinent negative responses have been documented in the HPI. ROS Other: All systems not noted in ROS Statement are negative. Past Medical History Past Medical History: Asthma, CVA/TIA, Fibromyalgia, GERD/Reflux, Hyperlipidemia, Sleep Apnea/CPAP/BIPAP Additional Past Medical History / Comment(s): CVA described as a "silent stroke"in 2019.Borderline thyroid condition. Osteopenia.Past cpap uses, cataracts, states she could not tolerate the colonoscopy prep when she was sched uled last. 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 Also history of genital HSV type II. History of Any Multi-Drug Resistant Organisms: None Reported Past Surgical History: Breast Surgery, Cholecystectomy, Orthopedic Surgery, Tubal Ligation Additional Past Surgical History / Comment(s): Neck surgery,dental implants, EGD. Arthroscopic knee surgery. Right breast biopsy. D&C x2. Colonoscopy 2019(next after 5yr). Spinal cord stimulator. Past Anesthesia/Blood Transfusion Reactions: No Reported Reaction Additional Past Anesthesia/Blood Transfusion Reaction / Comment(s): no blood transfusion. has had iron infusions no reaction Past Psychological History: Anxiety, Bipolar, Depression, PTSD Smoking Status: Current every day smoker Past Alcohol Use History: None Reported Past Drug Use History: Marijuana - Past Family History Mother Family Medical History: Cancer, Hypertension Additional Family Medical History / Comment(s): Possibly uterine or cervical cancer. Lichen sclerosus of the vulva. Sister(s) Family Medical History: Cancer Additional Family Medical History / Comment(s): Vulvar cancer. Father Family Medical History: Hypertension General Exam Limitations: no limitations General appearance: alert, in no apparent distress Eye exam: Present: normal appearance, PERRL, EOMI. Absent: scleral icterus, conjunctival injection, periorbital swelling ENT exam: Present: normal exam, normal oropharynx, mucous membranes moist, TM's normal bilaterally, other (No mastoid tenderness bilaterally) Neck exam: Present: normal inspection. Absent: tenderness, meningismus, lymphadenopathy Respiratory exam: Present: normal lung sounds bilaterally. Absent: respiratory distress, wheezes, rales, rhonchi, stridor Cardiovascular Exam: Present: regular rate, normal rhythm, normal heart sounds. Absent: systolic murmur, diastolic murmur, rubs, gallop, clicks Neurological exam: Present: alert, oriented X3, CN II-XII intact Skin exam: Present: warm, dry, intact, normal color. Absent: rash Course Vital Signs 05/19/24 05/19/24 05:53 06:35 Temperature 98.4 F Pulse Rate 83 Respiratory 16 18 Rate Blood Pressure 104/57 O2 Sat by Pulse 98 Oximetry Medical Decision Making - Medical Decision Making Was pt. sent in by a medical professional or institution (, PA, DIRECTOR OF VITAL STATISTICS, urgent care, hospital, or prison...) When possible be specific @ -No Did you speak to anyone other than the patient for history (EMS, parent, family, police, friend...)? What history was obtained from this source @ -No Did you review nursing and triage notes (agree or disagree)? Why? @ -I reviewed and agree with nursing and triage notes Were old charts reviewed (outside hosp., previous admission, EMS record, old EKG, old radiological studies, urgent care reports/EKG's, prison records)? Report findings @ -No old charts were reviewed Differential Diagnosis (chest pain, altered mental status, abdominal pain women, abdominal pain men, vaginal bleeding, weakness, fever, dyspnea, syncope, headache, dizziness, GI bleed, back pain, seizure, CVA, palpatations, mental health, musculoskeletal)? @ -COVID, RSV, influenza, viral sinusitis, pneumonia, strep pharyngitis, this list is not meant to be all-inclusive EKG interpreted by me (3pts min.). @ -None done X-rays interpreted by me (1pt min.). @ -CXR interpreted me negative for consolidations. CT interpreted by me (1pt min.). @ -None done U/S interpreted by me (1pt. min.). @ -None done What testing was considered but not performed or refused? (CT, X-rays, U/S, labs)? Why? @ -None What meds were considered but not given or refused? Why? @ -None Did you discuss the management of the patient with other professionals (professionals i.e. , PA, DIRECTOR OF VITAL STATISTICS, lab, RT, psych nurse, director of social services, it director, teacher, ethics officer, family independence case manager)? Give summary @ -No Was smoking cessation discussed for >3mins.? @ -I discussed smoking cessation for greater than 3 minutes. The risk of smoking were discussed with the patient including but not limited to risks of cancer, stroke, coronary artery disease and COPD. Also discussed with patient were multiple methods of quitting smoking. Lastly we discussed the financial cost of smoking. Was critical care preformed (if so, how long)? @ -No Were there social determinants of health that impacted care today? How? (Homelessness, low income, unemployed, alcoholism, drug addiction, transportation, low edu. Level, literacy, decrease access to med. care, snf, rehab)? @ -No Was there de-escalation of care discussed even if they declined (Discuss DNR or withdrawal of care, Hospice)? DNR status @ -No What co-morbidities impacted this encounter? (DM, HTN, Smoking, COPD, CAD, Cancer, CVA, ARF, Chemo, Hep., AIDS, mental health diagnosis, sleep apnea, morbid obesity)? @ -None Was patient admitted / discharged? Hospital course, mention meds given and route, prescriptions, significant lab abnormalities, going to OR and other pertinent info. @ -Discharge. 53-year-old female presented to the ER with a chief complaint of sinus pressure and cough. History and physical exam completed. Vital stable. Patient in no signs of acute distress nontoxic-appearing. Exam benign. Viral swabs negative. Chest x-ray negative. Patient given IM Toradol for symptom control in the ER. Upon reevaluation, patient reported mild improvement of sinus pressure. Due to duration of symptoms being approximately 6 weeks and patient allergy to penicillins patient was started on azithromycin for treatment of acute bacterial sinusitis. First dose in the ER. Strict return parameters discussed. Patient discharged in stable condition with follow-up to PCP. Patient verbally expressed understanding and agreement with care plan. Case discussed with ED attending, . Undiagnosed new problem with uncertain prognosis? @ -No Drug Therapy requiring intensive monitoring for toxicity (Heparin, Nitro, Insulin, Cardizem)? @ -No Were any procedures done? @ -No Diagnosis/symptom? @ -Acute bacterial sinusitis Acute, or Chronic, or Acute on Chronic? @ -Acute Uncomplicated (without systemic symptoms) or Complicated (systemic symptoms)? @ -Uncomplicated Side effects of treatment? @ -No Exacerbation, Progression, or Severe Exacerbation? @ -No Poses a threat to life or bodily function? How? (Chest pain, USA, PR, pneumonia, PE, COPD, DKA, ARF, appy, cholecystitis, CVA, Diverticulitis, Homicidal, Suicidal, threat to staff... and all critical care pts) @ -No - Lab Data Lab Results 05/19/24 Range/Units 06:24 Influenza Type A (PCR) Not Detected (Not Detectd) Influenza Type B (PCR) Not Detected (Not Detectd) RSV (PCR) Not Detected (Not Detectd) SARS-CoV-2 (PCR) Not Detected (Not Detectd) - EKG Data -: EKG Interpreted by Me EKG Comments: EKG taken at 5: 55 showing a normal sinus rhythm. No acute ST segment or T wave abnormalities. Ventricular rate 83, VA interval 157, QRS duration 105, QT/QTc 355/395. Disposition Clinical Impression: Acute bacterial sinusitis Disposition: HOME SELF-CARE Condition: Stable Additional Instructions: Follow-up with PCP. Return to the ER for any new or worsening symptoms. Prescriptions: Azithromycin [Zithromax Z Pack] 0 tab PO DIRECTED #6 tab Is patient prescribed a controlled substance at d/c from ED?: No Referrals: None,Stated [Primary Care Provider] - 1-2 days Forms: Area PCPs Time of Disposition: 07:52
--- NOTE | 2024-05-19 07:39 | XR ---
EXAMINATION TYPE: XR chest 2V DATE OF EXAM: 05/19/2024 6:39 AM COMPARISON: 11/25/2023 CLINICAL INDICATION: Female, 53 years old with history of cough, TECHNIQUE: Frontal and lateral views of the chest are obtained. FINDINGS: There is no focal air space opacity, pleural effusion, or pneumothorax seen. The cardiac silhouette size is within normal limits. The osseous structures are intact. IMPRESSION: No acute cardiopulmonary process. [facility], , 05/19/2024 7:37 AM
[2024-05-19] MEDS: AZITHROMYCIN 500 MG TAB PO STA (08:25)
[2024-05-19 08:29] VITALS: BP 111/62; PULSE 89; RESP 19; TEMP 98.5
== END 2024-05-19 08:29 | disposition home or self-care (01) ==
LOC: EC 05:44
DX: J01.80 Other acute sinusitis (principal); F17.200 Nicotine dependence, unspecified, uncomplicated; Z88.0 Allergy status to penicillin; Z88.1 Allergy status to other antibiotic agents; Z88.2 Allergy status to sulfonamides; Z88.5 Allergy status to narcotic agent; Z88.6 Allergy status to analgesic agent; Z91.010 Allergy to peanuts; Z91.011 Allergy to milk products; Z86.73 Personal history of transient ischemic attack (TIA), and cerebral infarction without residual deficits
CPT/HCPCS: 99283; 96372; 87636; 71046; 99406; J1885

== ENCOUNTER 2024-08-27 21:08 | Emergency (ER) | payer MEDICARE, OTHER ==
[2024-08-27 21:17] VITALS: TEMP 97.7
--- NOTE | 2024-08-27 21:20 | ED ---
GI Bleed HPI - General Chief complaint: Nausea/Vomiting/Diarrhea Stated complaint: NVD Time Seen by Provider: 08/27/24 21:19 Source: patient, RN notes reviewed, old records reviewed Mode of arrival: ambulatory - History of Present Illness Initial comments: This is a 54-year-old female to the ER for evaluation. Patient is coming in for significant nausea vomiting and diarrhea. Patient said 2 days with symptoms beginning yesterday starting with vomiting and diarrhea. Patient having persistent vomiting prior to arrival in the emergency department. States she feels weak worn down unable to keep anything down trying to drink water with no help. No fevers. Patient has no significant history of GI bleed. Patient does have history of colonoscopy and scheduled upper GI which she was unable to get done. Colonoscopies in the past have been normal, patient does have gallbladder removal Dr. De Los Santos, colonoscopy Dr. Margie AYALA complaint: other (Return for blood in vomit) -: days(s) Quality: cramping Consistency: intermittent Improves with: none Worsens with: eating, vomiting Associated Symptoms: nausea, vomiting Treatments Prior to Arrival: none - Related Data Home Medications Medication Instructions Recorded Confirmed Gabapentin [Neurontin] 600 mg PO Q4H 12/14/13 01/05/24 cloNIDine HCL [Catapres] 0.1 mg PO HS 12/14/13 01/05/24 Fluticasone Propionate [Flovent 1 puff INHALATION RT-BID 01/17/20 01/05/24 Hfa 220 mcg] Cetirizine HCl [Zyrtec] 10 mg PO DAILY 03/10/20 01/05/24 Linaclotide [Linzess] 145 mcg PO HS 03/10/20 01/05/24 Melatonin 3 mg PO HS 02/12/21 01/05/24 Prochlorperazine [Compazine] 10 mg PO Q8HR 02/12/21 01/05/24 Albuterol Inhaler [Ventolin Hfa 2 puff INHALATION DAILY PRN 03/14/21 01/05/24 Inhaler] Esomeprazole Magnesium [NexIUM] 20 mg PO BID 11/05/22 01/05/24 Albuterol Sulfate [Proair 1 puff INHALATION DAILY PRN 12/28/23 01/05/24 Digihaler] Cholecalciferol (Vitamin D3) 1 tab PO DAILY 01/05/24 01/05/24 [Vitamin D3 (125 MCG = 5,000 IU)] Previous Rx's Medication Instructions Recorded EPINEPHrine (Auto Inject) [Epipen] 0.3 mg IM ONCE PRN #2 pen 03/10/20 Ipratropium-Albuterol Nebulize 3 ml INHALATION Q4-6H PRN #90 ml 11/25/23 [Duoneb 0.5 mg-3 mg/3 ml Soln] Triamcinolone 0.1% Cream [Kenalog 1 applicatio TOPICAL BID PRN #30 gm 01/05/24 0.1% Cream] valACYclovir HCL [Valtrex] 500 mg PO BID #6 tab 01/05/24 Azithromycin [Zithromax Z Pack] 0 tab PO DIRECTED #6 tab 05/19/24 Allergies Allergy/AdvReac Type Severity Reaction Status Date / Time diclofenac [From Voltaren] Allergy Anaphylaxis Verified 05/19/24 05:53 mold Allergy Wheezing Verified 05/19/24 05:53 sulfamethoxazole Allergy Itching Verified 05/19/24 05:53 [From Bactrim] trimethoprim [From Bactrim] Allergy Itching Verified 05/19/24 05:53 acetaminophen AdvReac Nausea & Verified 05/19/24 05:53 [From Tylenol-Codeine #3] Vomiting amoxicillin AdvReac Rash/Hives Verified 05/19/24 05:53 aspirin AdvReac Nausea & Verified 05/19/24 05:53 Vomiting codeine phosphate AdvReac Nausea & Verified 05/19/24 05:53 [From Tylenol-Codeine #3] Vomiting Milk Containing Products AdvReac Nausea & Verified 05/19/24 05:53 (Dairy) Vomiting [Milk Containing Products] peanut AdvReac Diarrhea Verified 05/19/24 05:53 Penicillins AdvReac Rash/Hives Verified 05/19/24 05:53 Review of Systems ROS Statement: Those systems with pertinent positive or pertinent negative responses have been documented in the HPI. ROS Other: All systems not noted in ROS Statement are negative. Past Medical History Past Medical History: Asthma, CVA/TIA, Fibromyalgia, GERD/Reflux, Hyperlipidemia, Sleep Apnea/CPAP/BIPAP Additional Past Medical History / Comment(s): CVA described as a "silent stroke"in 2019.Borderline thyroid condition. Osteopenia.Past cpap uses, cataracts, states she could not tolerate the colonoscopy prep when she was scheduled last. Past [employer] history: Gonorrhea and chlamydia in her 20s. Also history of genital HSV type II. History of Any Multi-Drug Resistant Organisms: None Reported Past Surgical History: Breast Surgery, Cholecystectomy, Orthopedic Surgery, Tubal Ligation Additional Past Surgical History / Comment(s): Neck surgery,dental implants, EGD. Arthroscopic knee surgery. Right breast biopsy. D&C x2. Colonoscopy 2019(next after 5yr). Spinal cord stimulator. Past Anesthesia/Blood Transfusion Reactions: No Reported Reaction Additional Past Anesthesia/Blood Transfusion Reaction / Comment(s): no blood transfusion. has had iron infusions no reaction Past Psychological History: Anxiety, Bipolar, Depression, PTSD Smoking Status: Current every day smoker Past Alcohol Use History: None Reported Past Drug Use History: Marijuana - Past Family History Mother Family Medical History: Cancer, Hypertension Additional Family Medical History / Comment(s): Possibly uterine or cervical cancer. Lichen sclerosus of the vulva. Sister(s) Family Medical History: Cancer Additional Family Medical History / Comment(s): Vulvar cancer. Father Family Medical History: Hypertension General Exam General appearance: alert, in no apparent distress Head exam: Present: atraumatic, normocephalic, normal inspection Eye exam: Present: normal appearance, PERRL, EOMI. Absent: scleral icterus, conjunctival injection, periorbital swelling ENT exam: Present: normal exam, mucous membranes moist Neck exam: Present: normal inspection. Absent: tenderness, meningismus, lymphadenopathy Respiratory exam: Present: normal lung sounds bilaterally. Absent: respiratory distress, wheezes, rales, rhonchi, stridor Cardiovascular Exam: Present: normal rhythm, tachycardia, normal heart sounds. Absent: systolic murmur, diastolic murmur, rubs, gallop, clicks GI/Abdominal exam: Present: soft, normal bowel sounds. Absent: distended, tenderness, guarding, rebound, rigid Extremities exam: Present: normal inspection, full ROM, normal capillary refill. Absent: tenderness, pedal edema, joint swelling, calf tenderness Back exam: Present: normal inspection Neurological exam: Present: alert, oriented X3, CN II-XII intact Psychiatric exam: Present: normal affect, normal mood Skin exam: Present: warm, dry, intact, normal color. Absent: rash Course Vital Signs 08/27/24 08/28/24 21:13 00:43 Temperature 97.7 F Pulse Rate 126 H 97 Respiratory 18 20 Rate Blood Pressure 108/73 118/70 O2 Sat by Pulse 98 99 Oximetry - Reevaluation(s) Reevaluation #1: 08/27/24 21:52 Medical records reviewed No significant contributing medical history Reevaluation #2: 08/28/24 00:04 Patient symptoms continue to improve here in the ER Reevaluation #3: 08/28/24 00:05 Patient informed of results questions answered Reevaluation #4: Was pt. sent in by a medical professional or institution (, [facility], [employer], urgent care, hospital, or fdc...) When possible be specific @ -no Did you speak to anyone other than the patient for history (EMS, parent, family, police, friend...)? What history was obtained from this source @ -no Did you review nursing and triage notes (agree or disagree)? Why? @ -agree Are old charts reviewed (outside hosp., previous admission, EMS record, old EKG, old radiological studies, urgent care reports/EKG's, fdc records)? Report findings @ -yes Differential Diagnosis (chest pain, altered mental status, abdominal pain women, abdominal pain men, vaginal bleeding, weakness, fever, dyspnea, syncope, headache, dizziness, GI bleed, back pain, seizure, CVA, palpatations, mental health, musculoskeletal)? @ -prior EKG interpreted by me (3pts min.). @ -yes X-rays interpreted by me (1pt min.). @ -yes negative for acute disease CT interpreted by me (1pt min.). @ -no U/S interpreted by me (1pt. min.). @ -no What testing was considered but not performed or refused? (CT, X-rays, U/S, labs)? Why? @ -none What meds were considered but not given or refused? Why? @ -none Did you discuss the management of the patient with other professionals (professionals i.e. [facility], [employer], lab, RT, psych nurse, social security specialist, real estate lawyer, teacher, chief wellness officer, case repairer)? Give summary @ -no Was smoking cessation discussed for >3mins.? @ -no Was critical care preformed (if so, how long)? @ -no Were there social determinants of health that impacted care today? How? (Homelessness, low income, unemployed, alcoholism, drug addiction, transportation, low edu. Level, literacy, decrease access to med. care, prison, rehab)? @ -none Was there de-escalation of care discussed even if they declined (Discuss DNR or withdrawal of care, Hospice)? DNR status @ -no What co-morbidities impacted this encounter? (DM, HTN, Smoking, COPD, CAD, Cancer, CVA, ARF, Chemo, Hep., AIDS, mental health diagnosis, sleep apnea, morbid obesity)? @ -none Was patient admitted / discharged? Hospital course, mention meds given and route, prescriptions, significant lab abnormalities, going to OR and other pertinent info. @ - 54 female to the ER for evaluation of nausea vomiting and diarrhea symptoms resolved here in the ER lab testing is normal, CT of pelvis negative for acute disease and patient can be discharged home Undiagnosed new problem with uncertain prognosis? @ -no Drug Therapy requiring intensive monitoring for toxicity (Heparin, Nitro, Insulin, Cardizem)? @ -no Were any procedures done? @ -no Diagnosis/symptom? @ - Acute, or Chronic, or Acute on Chronic? @ -Acute Uncomplicated (without systemic symptoms) or Complicated (systemic symptoms)? @ -Complicated Side effects of treatment? @ -no Exacerbation, Progression, or Severe Exacerbation? @ -exacerbation Poses a threat to life or bodily function? How? (Chest pain, [place], VA, pneumonia, PE, COPD, DKA, ARF, appy, cholecystitis, CVA, Diverticulitis, Homicidal, Suic idal, threat to staff... and all critical care pts) @ -no Reevaluation #5: Differential GI Bleed: Esophageal varices, aortoenteric fistula, Shanna-Singletary, gastritis, peptic ulcer disease, diverticulosis, inflammatory bowel disease, hemorrhoids, fissure, colitis, malignancy, Meckel's diverticulum, this is not meant to be an all- inclusive list. Differential Abdominal Pain Women: Appendicitis, Cholecystitis, diverticulosis, ischemic bowel, pancreatitis, hepatitis, UTI, gastroenteritis, AAA, incarcerated hernia, bowel obstruction, constipation, inflammatory bowel, hepatitis, peptic ulcer disease, splenic infarction, perforated viscus, vulvitis, ovarian torsion, PID, kidney stone, placenta abruption, this is not meant to be an all-inclusive list Medical Decision Making - Medical Decision Making 54 female to the ER for evaluation of nausea vomiting and diarrhea symptoms resolved here in the ER lab testing is normal, CT of pelvis negative for acute disease and patient can be discharged home - Lab Data Result diagrams: 08/27/24 21:25 08/27/24 21:25 Lab Results 08/27/24 08/27/24 08/27/24 Range/Units 21:25 21:25 21:25 WBC 10.4 (3.8-10.6) k/uL RBC 5.18 (3.80-5.40) m/uL Hgb 16.3 H (11.4-16.0) gm/dL Hct 48.9 H (34.0-46.0) % MCV 94.3 (80.0-100.0) fL MCH 31.4 (25.0-35.0) pg MCHC 33.3 (31.0-37.0) g/dL RDW 12.3 (11.5-15.5) % Plt Count 242 (150-450) k/uL MPV 8.8 Neutrophils % 87 % Lymphocytes % 8 % Monocytes % 3 % Eosinophils % 0 % Basophils % 0 % Neutrophils # 9.0 H (1.3-7.7) k/uL Lymphocytes # 0.8 L (1.0-4.8) k/uL Monocytes # 0.3 (0-1.0) k/uL Eosinophils # 0.0 (0-0.7) k/uL Basophils # 0.0 (0-0.2) k/uL PT 10.6 (10.0-12.5) sec INR 0.9 (<1.2) APTT 24.9 (22.0-30.0) sec Sodium 139 (137-145) mmol/L Potassium 3.5 (3.5-5.1) mmol/L Chloride 97 L (98-107) mmol/L Carbon Dioxide 26 (22-30) mmol/L Anion Gap 16 mmol/L BUN 17 (7-17) mg/dL Creatinine 0.76 (0.52-1.04) mg/dL Est GFR (CKD-EPI)AfAm >90 (>60 ml/min/1.73 sqM) Est GFR (CKD-EPI)NonAf 89 (>60 ml/min/1.73 sqM) Glucose 138 H (74-99) mg/dL Lactic Ac Sepsis Rflx Plasma Lactic Acid Alton (0.7-2.0) mmol/L Calcium 9.8 (8.4-10.2) mg/dL Magnesium 2.1 (1.6-2.3) mg/dL Total Bilirubin 1.2 (0.2-1.3) mg/dL AST 127 H (14-36) U/L ALT 95 H (4-34) U/L Alkaline Phosphatase 101 (38-126) U/L Troponin I (0.000-0.034) ng/mL Total Protein 8.5 H (6.3-8.2) g/dL Albumin 5.1 H (3.5-5.0) g/dL Lipase 33 (23-300) U/L Blood Type Blood Type Confirm Blood Type Recheck Bld Type Recheck Status Antibody Screen Spec Expiration Date 08/27/24 08/27/24 08/27/24 Range/Units 21:25 21:25 22:05 WBC (3.8-10.6) k/uL RBC (3.80-5.40) m/uL Hgb (11.4-16.0) gm/dL Hct (34.0-46.0) % MCV (80.0-100.0) fL MCH (25.0-35.0) pg MCHC (31.0-37.0) g/dL RDW (11.5-15.5) % Plt Count (150-450) k/uL MPV Neutrophils % % Lymphocytes % % Monocytes % % Eosinophils % % Basophils % % Neutrophils # (1.3-7.7) k/uL Lymphocytes # (1.0-4.8) k/uL Monocytes # (0-1.0) k/uL Eosinophils # (0-0.7) k/uL Basophils # (0-0.2) k/uL PT (10.0-12.5) sec INR (<1.2) APTT (22.0-30.0) sec Sodium (137-145) mmol/L Potassium (3.5-5.1) mmol/L Chloride (98-107) mmol/L Carbon Dioxide (22-30) mmol/L Anion Gap mmol/L BUN (7-17) mg/dL Creatinine (0.52-1.04) mg/dL Est GFR (CKD-EPI)AfAm (>60 ml/min/1.73 sqM) Est GFR (CKD-EPI)NonAf (>60 ml/min/1.73 sqM) Glucose (74-99) mg/dL Lactic Ac Sepsis Rflx Y Plasma Lactic Acid Alton 2.2 H* (0.7-2.0) mmol/L Calcium (8.4-10.2) mg/dL Magnesium (1.6-2.3) mg/dL Total Bilirubin (0.2-1.3) mg/dL AST (14-36) U/L ALT (4-34) U/L Alkaline Phosphatase (38-126) U/L Troponin I <0.012 (0.000-0.034) ng/mL Total Protein (6.3-8.2) g/dL Albumin (3.5-5.0) g/dL Lipase (23-300) U/L Blood Type Blood Type Confirm Blood Type Recheck Bld Type Recheck Status Antibody Screen Spec Expiration Date 08/27/24 08/27/24 08/28/24 Range/Units 22:10 22:21 00:15 WBC (3.8-10.6) k/uL RBC (3.80-5.40) m/uL Hgb (11.4-16.0) gm/dL Hct (34.0-46.0) % MCV (80.0-100.0) fL MCH (25.0-35.0) pg MCHC (31.0-37.0) g/dL RDW (11.5-15.5) % Plt Count (150-450) k/uL MPV Neutrophils % % Lymphocytes % % Monocytes % % Eosinophils % % Basophils % % Neutrophils # (1.3-7.7) k/uL Lymphocytes # (1.0-4.8) k/uL Monocytes # (0-1.0) k/uL Eosinophils # (0-0.7) k/uL Basophils # (0-0.2) k/uL PT (10.0-12.5) sec INR (<1.2) APTT (22.0-30.0) sec Sodium (137-145) mmol/L Potassium (3.5-5.1) mmol/L Chloride (98-107) mmol/L Carbon Dioxide (22-30) mmol/L Anion Gap mmol/L BUN (7-17) mg/dL Creatinine (0.52-1.04) mg/dL Est GFR (CKD-EPI)AfAm (>60 ml/min/1.73 sqM) Est GFR (CKD-EPI)NonAf (>60 ml/min/1.73 sqM) Glucose (74-99) mg/dL Lactic Ac Sepsis Rflx Plasma Lactic Acid Alton 0.7 (0.7-2.0) mmol/L Calcium (8.4-10.2) mg/dL Magnesium (1.6-2.3) mg/dL Total Bilirubin (0.2-1.3) mg/dL AST (14-36) U/L ALT (4-34) U/L Alkaline Phosphatase (38-126) U/L Troponin I (0.000-0.034) ng/mL Total Protein (6.3-8.2) g/dL Albumin (3.5-5.0) g/dL Lipase (23-300) U/L Blood Type O Negative Blood Type Confirm O Negative Blood Type Recheck No Previous Record Bld Type Recheck Status CABO Indicated Antibody Screen NEGATIVE Spec Expiration Date 08/30/20242309 - Radiology Data Radiology results: report reviewed (CT abdomen pelvis is negative for acute disease), image reviewed Disposition Clinical Impression: Gastroenteritis, Dehydration Disposition: HOME SELF-CARE Condition: Good Instructions (If sedation given, give patient instructions): Acute Nausea and Vomiting (ED) Is patient prescribed a controlled substance at d/c from ED?: No Referrals: Jayson Dan MD [Primary Care Provider] - 1-2 days Time of Disposition: 00:00
[2024-08-27] MEDS: PANTOPRAZOLE 40 MG/10 ML VIAL IVP STA (21:31)
[2024-08-27] MEDS: SODIUM CHLORIDE 0.9% 1,000 ML IV STA (21:31)
[2024-08-27] MEDS: ONDANSETRON 4 MG/2 ML VIAL IVP STA (21:31)
[2024-08-27 21:37] LABS: Basophils % (A) 0 %; Eosinophils % (A) 0 %; HCT 48.9 % (34.0-46.0); HGB 16.3 gm/dL (11.4-16.0); Lymphocytes # (A) 0.8 k/uL (1.0-4.8); Lymphocytes % (A) 8 %; MCH 31.4 pg (25.0-35.0); MCHC 33.3 g/dL (31.0-37.0); MCV 94.3 fL (80.0-100.0); Mean Platelet Volume 8.8; Monocytes # (A) 0.3 k/uL (0-1.0); Monocytes % (A) 3 %; Neutrophils % (A) 87 %; Platelet Count 242 k/uL (150-450); RBC 5.18 m/uL (3.80-5.40); RDW 12.3 % (11.5-15.5); WBC 10.4 k/uL (3.8-10.6)
[2024-08-27 21:51] LABS: ALT 95 U/L (4-34); AST 127 U/L (14-36); African American GFR (CKD) >90 (>60 ml/min/1.73 sqM); Albumin 5.1 g/dL (3.5-5.0); Alkaline Phosphatase 101 U/L (38-126); Anion Gap 16 mmol/L; Blood Urea Nitrogen 17 mg/dL (7-17); Calcium 9.8 mg/dL (8.4-10.2); Carbon Dioxide 26 mmol/L (22-30); Chloride 97 mmol/L (98-107); Glucose 138 mg/dL (74-99); Lipase 33 U/L (23-300); Magnesium 2.1 mg/dL (1.6-2.3); Non-African American GFR(CKD) 89 (>60 ml/min/1.73 sqM); Potassium 3.5 mmol/L (3.5-5.1); Sodium 139 mmol/L (137-145); Total Bilirubin 1.2 mg/dL (0.2-1.3); Total Protein 8.5 g/dL (6.3-8.2)
[2024-08-27 22:12] LABS: INR 0.9 (<1.2); Partial Thromboplastin Time 24.9 sec (22.0-30.0); Prothrombin Time 10.6 sec (10.0-12.5)
[2024-08-27] MEDS: SODIUM CHLORIDE 0.9% 1,000 ML IV ONE (22:19)
--- NOTE | 2024-08-27 23:58 | CT ---
EXAM: CT Abdomen and Pelvis With Intravenous Contrast CLINICAL HISTORY: ITS.REASON CT Reason: pain TECHNIQUE: Axial computed tomography images of the abdomen and pelvis with intravenous contrast. CTDI is 13.6 mGy and DLP is 619.4 mGy-cm. This CT exam was performed using one or more of the following dose reduction techniques: automated exposure control, adjustment of the mA and/or kV according to patient size, and/or use of iterative reconstruction technique. COMPARISON: 10/15/2023. FINDINGS: Lung bases: Minimal scarring and subsegmental atelectasis noted at the lung bases. Heart: Heart is normal in size. ABDOMEN: Liver: Fatty liver. Gallbladder and bile ducts: Status post cholecystectomy. No ductal dilation. Pancreas: See below. Spleen: Spleen enhances uniformly. Adrenals: The adrenal glands, the head, body, tail of the pancreas are unremarkable. Kidneys and ureters: The renal collecting systems and the visualized ureters are unremarkable. No renal calculus or hydronephrosis. Stomach and bowel: Moderate quantity of ingested material in the stomach. Moderate quantity of stool throughout the colon. Diverticulosis without diverticulitis. No obstruction. PELVIS: Appendix: Appendix is seen on coronal image 33 and is unremarkable. Bladder: Unremarkable. No mass. Reproductive: Unremarkable as visualized. ABDOMEN and PELVIS: Intraperitoneal space: Unremarkable. No free air. No significant fluid collection. Bones/joints: No acute fracture. No dislocation. No spondylolysis. Soft tissues: Ischiorectal fat is clean. Vasculature: Portal vein is patent. Atherosclerotic disease of the abdominal aorta extending to the common iliac arteries. Flow is noted within the celiac, SMA, the renal arteries, and GALA. No abdominal aortic aneurysm. Lymph nodes: Unremarkable. No retroperitoneal lymphadenopathy. No pelvic or inguinal lymphadenopathy. IMPRESSION: 1. Fatty liver. 2. Status post cholecystectomy. 3. No renal calculus or hydronephrosis. 4. Consider constipation. 5. Appendix is unremarkable. 6. Diverticulosis without diverticulitis.
[2024-08-28] MEDS ORDERED: ONDANSETRON 4 MG ODT STARTER PACK 2 TAB BTL PO STA (00:04)
[2024-08-28] MEDS ORDERED: ONDANSETRON 4 MG/2 ML VIAL IVP STA (00:13)
[2024-08-28] MEDS ORDERED: FAMOTIDINE 20 MG/2 ML VIAL IV STA (00:13)
[2024-08-28 00:43] VITALS: BP 118/70; PULSE 97; RESP 20
== END 2024-08-28 00:43 | disposition home or self-care (01) ==
LOC: EC 21:08
DX: K52.9 Noninfective gastroenteritis and colitis, unspecified (principal); E86.0 Dehydration; F17.200 Nicotine dependence, unspecified, uncomplicated
CPT/HCPCS: 36415 ×2; 86900; 86901; 80053; 83605 ×2; 83690; 83735; 84484; 85025; 85610; 85730; 86850; 74177; 99284; 96374; 96375; 96361 ×2; J2405; Q9967; J2470